=== PATIENT | female | born 1995 | race Caucasian/White ===

== ENCOUNTER → 2019-01-02 | Outpatient (REF) | payer BC | LOC: M LAB LCGH 15:00 | PROVIDERS: ATTEND Family Medicine | DX: O77.0 Labor and delivery complicated by meconium in amniotic fluid (principal) ==

== ENCOUNTER → 2020-10-04 | Outpatient (CLI) | payer OTHER | LOC: M WHC 11:09 | PROVIDERS: ATTEND Obstetrics & Gynecology | DX: Z34.82 Encounter for supervision of other normal pregnancy, second trimester (principal); Z3A.17 17 weeks gestation of pregnancy ==

== ENCOUNTER 2020-10-13 20:32 | Outpatient (CLI) | payer OTHER ==
[~2020-10-13] VITALS: Ht 172.7 cm; Wt 85.5 kg
[2020-10-13 21:15] VITALS: BP 116/70
[2020-10-13] MEDS ORDERED: PRENTAB9 PO (21:20)
[2020-10-13] MEDS ORDERED: CEPH250T PO (21:20)
--- NOTE | 2020-10-13 22:07 | IPNPDOC ---
Text Note Date of Service The patient was seen on 10/13/20. NOTE 25 yo at 19 1/7 weeks gestation by LMP c/w 10 week ultrasound (EDC=03/07/2021) presents with contractions every few minutes for the last several hours. No vaginal bleeding. O: AVSS NAD Abd: NT, gravid, soft FHT: 130 toco: none SVE: cx: L/C/P firm A/P 25 yo at 19 1/7 weeks with possible contractions, not in labor pelvic rest discharge home call for worse pain VS,Fishbone, I+O VS, Fishbone, I+O Vital Signs Date Time Temp Pulse Resp B/P (MAP) Pulse Ox O2 Delivery O2 Flow Rate FiO2 10/13/20 21:15 98.7 73 116/70 (85) SVETLANA BREWER MD October 13, 2020 22:07
== END 2020-10-13 22:13 | disposition home or self-care (01) ==
LOC: M LDO 20:32
PROVIDERS: ATTEND Specialist
DX: O47.02 False labor before 37 completed weeks of gestation, second trimester (principal); Z3A.19 19 weeks gestation of pregnancy

== ENCOUNTER → 2020-11-02 | Outpatient (REF) | payer OTHER ==
[~2020-11-02] MED LIST: CEPH250T PO; PRENTAB9 PO
== END ==
LOC: M SFHCWAGY 15:13
PROVIDERS: ATTEND Advanced Practice Midwife
DX: O34.211 Maternal care for low transverse scar from previous cesarean delivery (principal); Z53.9 Procedure and treatment not carried out, unspecified reason

== ENCOUNTER → 2020-11-28 | Outpatient (CLI) | payer OTHER ==
[~2020-11-28] MED LIST changes: +CEPH500C PO; +IBUP200T46 PO
[2020-11-28 15:55] LABS: HEMATOCRIT 39.4 % (36.0-47.0); MEAN CORPUSCULAR HEMOGLOBIN 31.1 pg (27.0-33.0); MEAN CORPUSCULAR VOLUME 94.3 fl (80.0-96.0); PLATELET COUNT, AUTOMATED 243 10^3/uL (150-450); RED BLOOD COUNT 4.18 10^6/uL (4.00-5.40); WHITE BLOOD COUNT 10.3 10^3/uL (4.0-10.0)
[2020-11-28 19:28] LABS: GC DNA AMPLIFICATION NEGATIVE (NEGATIVE)
== END ==
LOC: M PLALAB 12:45
PROVIDERS: ATTEND Advanced Practice Midwife
DX: O34.211 Maternal care for low transverse scar from previous cesarean delivery (principal)

== ENCOUNTER 2020-12-25 21:06 | Outpatient (CLI) | payer BC, OTHER ==
[~2020-12-25] VITALS: Ht 172.7 cm; Wt 89.6 kg
[~2020-12-25 21:06] MED LIST changes: -CEPH500C PO; -IBUP200T46 PO
[2020-12-25 21:29] VITALS: BP 126/76
[2020-12-25] MEDS ORDERED: HOME MED LIST COMPLETE! XX SCH (22:10)
== END 2020-12-25 23:43 | disposition home or self-care (01) ==
LOC: M LDO 21:06
PROVIDERS: ATTEND Obstetrics & Gynecology
DX: O47.03 False labor before 37 completed weeks of gestation, third trimester (principal); Z3A.29 29 weeks gestation of pregnancy
CPT/HCPCS: 59025; 81001; G0378; G0463

== ENCOUNTER 2021-01-20 18:10 | Outpatient (CLI) | payer BC, OTHER ==
[2021-01-20 18:44] VITALS: BP 112/69
--- NOTE | 2021-01-20 19:09 | IPNPDOC ---
Text Note Date of Service The patient was seen on 01/20/21. NOTE Outpatient 25yo VICTORIANO 03/07/2021. Presents @ 33w3d with complaints of contractions, possible leakage of fluid today that started after vacuuming and sweeping her floors. She has presented here and at [place] with similar complaints over the past few weeks. No apparent distress. Breathing expulsively with reported contractions Cat I tracing Spec exam neg pool, neg nitrazine, neg fern SVE LTC, moderate texture, OOP. Will hydrate and reassess. Nicole Carmona CNM Jan 20, 2021 19:08
[2021-01-20] MEDS ORDERED: LACTATED RINGER'S 1000 ML IV ONE (19:15)
[2021-01-20 19:41] LABS: APPEARANCE, URINE CLOUDY (CLEAR); BACTERIA, URINE AUTO 3+ (NEGATIVE); BILIRUBIN, URINE AUTO NEGATIVE (NEGATIVE); BLOOD, URINE BLOOD NEGATIVE (NEGATIVE); COLOR, URINE YELLOW (YELLOW); GLUCOSE, URINE (UA) AUTO NEGATIVE (NEGATIVE); KETONE, URINE AUTO TRACE mg/dL (NEGATIVE); LEUKOCYTE ESTERASE, URINE AUTO 1+ (NEGATIVE); MUCUS, URINE SMALL (NEGATIVE); NITRITE, URINE AUTO NEGATIVE (NEGATIVE); PROTEIN, URINE AUTO 1+ mg/dL (NEGATIVE); RBC, URINE AUTO 3 /HPF (0-3); SPECIFIC GRAVITY URINE AUTO 1.018 (1.002-1.035); SQUAMOUS EPITHELIAL CELL UR AU 2 /HPF (0-6); UROBILINOGEN, URINE AUTO 0.2 mg/dL (0.0-2.0); WBC, URINE AUTO 13 /HPF (0-3)
[2021-01-20] MEDS ORDERED: CEPH500C PO (20:05)
[2021-01-20] MEDS ORDERED: CEPHALEXIN 500 MG CAP PO ONE (20:05)
[2021-01-20 20:54] VITALS: BP 109/62
--- NOTE | 2021-01-20 21:22 | IPNPDOC ---
Text Note Date of Service The patient was seen on 01/20/21. NOTE Progress Feels better after oral hydration and rest. Cat I tracing, rare UC UA suspicious for UTI. Pt takes keflex 250mg daily prophylaxis. Rx sent for keflex 500mg BID pending culture Discharged home with instructions. Keep appt next week VS,Fishbone, I+O VS, Fishbone, I+O Vital Signs Date Time Temp Pulse Resp B/P (MAP) Pulse Ox O2 Delivery O2 Flow Rate FiO2 01/20/21 20:54 71 109/62 (78) 01/20/21 19:10 98.0 18 Room Air Nicole Carmona CNM Jan 20, 2021 21:22
== END 2021-01-20 21:00 | disposition home or self-care (01) ==
LOC: M LDO 18:10
PROVIDERS: ATTEND Advanced Practice Midwife
DX: O47.03 False labor before 37 completed weeks of gestation, third trimester (principal); Z3A.33 33 weeks gestation of pregnancy; O23.43 Unspecified infection of urinary tract in pregnancy, third trimester
CPT/HCPCS: 59025; 81001; 87086; G0378; G0463

== ENCOUNTER → 2021-02-07 | Outpatient (REF) | payer OTHER ==
[~2021-02-07] MED LIST changes: +CEPH500C PO
== END ==
LOC: M SFHCWAGY 10:31
PROVIDERS: ATTEND Obstetrics & Gynecology
DX: O34.211 Maternal care for low transverse scar from previous cesarean delivery (principal); Z3A.00 Weeks of gestation of pregnancy not specified

== ENCOUNTER 2021-03-12 02:32 | Inpatient (IN) | payer BC, OTHER ==
[~2021-03-12] VITALS: Ht 172.7 cm; Wt 94.0 kg
[2021-03-12] VITALS (40 sets, daily range): BP systolic 98–143; BP diastolic 55–97
--- OUTSIDE RECORDS SUMMARY | 2021-03-12 03:37 | CCD ---
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 confirmed 541789168657576 Problem Supervision of other normal Z34.80 Ac tive confirm [id number] ALLERGIES No Known Allergies ENCOUNTERS from 1993 to 2021-03-07 Encounter Location Date Provider Diagnosis [facility] [address] [place] [address] [place] [address] Feb, Oj Mckeon Previous de livery, antepartum O34.219 IMMUNIZATIONS Vaccine Route Administration Date Status TDAP 0.5mL Boostrix IM Intramuscular Jan 10, 2021 Administere d RHo D Immune Globulin 300mcg/1.5mL RhoGAM IM Intramuscular Dec Administered SOCIAL HISTORY Tobacco Use: Social History Observation Description Date Details (start date - stop date) Never Smoker Sex Assigned At : Social History Observation Description Sex Assigned At Unknown Alcohol Screening: Question Answer Notes Did you have a drink containing alcohol in the past year? No Points 0 Interpretation Negative Tobacco Use: Question Answer Notes Are you a: never smoker REASON FOR REFERRAL No Information VITAL SIGNS Weight 203.4 lbs Feb, Weight-kg 92.26 kg 18 Oct, 2021 Height 68 in Feb, BMI 30.927 kg/m2 Feb, Blood pressure systolic 124 mm Hg Feb, Blood pressure diastolic 84 mm Hg Feb, MEDICATIONS Medication SIG (Take, Route, Frequency, Duration) Notes Start Da te End Date Status 27-1 MG 1 tablet Orally Once a day Active Cephalexin Not-Taking Cephalexin 250 MG 1 capsule Orally every 6 hrs Not-Taking PROCEDURES No Information RESULTS No Results REASON FOR VISIT 1 wk pn MEDICAL (GENERAL) HISTORY Type Description Date Medical History factor V leiden Medical History migraine headache Medical History Atypical gene status-difficulty processi ng meds Medical History Chronic kidney infections Surgical History 2019 Surgical History [place] teeth Hospitalization History /hematoma Hospitalization History Kidney infection Goals Section No Information Health Concerns No Information MEDICAL EQUIPMENT No Information MENTAL STATUS No Information FUNCTIONAL STATUS No Information ASSESSMENTS Encounter Date Diagnosis Assessment Notes Treatment Notes Treatm ent Clinical Notes Feb, Previous delivery, antepartum (ICD-10 - O34.219) PLAN OF TREATMENT Next Appt Details 1 Week Reason: Provider Name:Oj Mckeon, 2021-03-13 1 0:40:00 AM, [address] [facility], , [place], [address], Insurance Providers Payer Name Payer Address Payer Phone Insured Name Patient Relati onship to Insured Coverage Start Date Coverage End Date [facility] COMMUNITY [facility]AN [facility] [place] [facility] [address] [facility] [phone] KAYDEN CUMMINGS self
--- OUTSIDE RECORDS SUMMARY | 2021-03-12 03:38 | CCD ---
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 Active confirmed [id number] Problem Supervision of other normal Z34.80 Ac tive confirm [id number] ALLERGIES No Known Allergies ENCOUNTERS from 1993 to 2021-02-24 Encounter Location Date Provider Diagnosis [facility] [address] [facility] [phone] [place] [address] Jan, Tosha Lorenzana Maternal care due to low transverse uterine scar from previous delivery O34.211 ; Mitochondrial metabolism disorder, 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 and 37 weeks gestation of Z3A.37 IMMUNIZATIONS Vaccine Route Administration Date Status TDAP [...] FOR REFERRAL No Information VITAL SIGNS Weight 202 lbs Jan, Weight-kg 91.63 kg Jan, Height 68 in Jan, BMI 30.71 kg/m2 Jan, Blood pressure systolic 116 mm Hg Jan, Blood pressure diastolic 70 mm Hg Jan, MEDICATIONS Medication SIG (Take, Route, Frequency, Duration) Notes Start Da te End Date Status Cephalexin 250 MG 1 capsule Orally every 6 hrs Active Cephalexin Not-Taking 27-1 MG 1 tablet Orally Once a day Active PROCEDURES No Information RESULTS No Results REASON FOR VISIT 1 wk pn MEDICAL (GENERAL) HISTORY Type Description Date Medical History factor V leiden Medical History migraine headache Medical History Atypical gene status-difficulty processi ng meds Medical History Chronic kidney infections Surgical History 2018 Surgical History [place] teeth Hospitalization History /hematoma Hospitalization History Kidney infection Goals Section No Information Health Concerns No Information MEDICAL EQUIPMENT No Information MENTAL STATUS No Information FUNCTIONAL STATUS No Information ASSESSMENTS Encounter Date Diagnosis Assessment Notes Treatment Notes Treatm ent Clinical Notes Jan, Mitochondrial metabolism disorder, unspecified ( ICD-10 - E88.40) Jan, Maternal care due to low tra nsverse uterine scar from previous delivery (ICD-10 - O34.211) Jan, 37 weeks gestation of (ICD-10 - Z3A.37 ) PLAN OF TREATMENT Next Appt Details 1 Week Reason: Provider Name:Oj Mckeon, 2021-02-27 1 0:40:00 AM, [address] [place] [address] , [place], [address], Provider Name:Oj Mckeon, 2021-03-06 1 0:40:00 AM, [address] [place] [address] , [place], [address], Provider Name:Oj Mckeon, 2021-03-13 1 0:40:00 AM, [address] [place], [place] [id number], [place], [address], Follow Up:1 WeekPrenatal Insurance Providers Payer Name Payer Address Payer Phone Insured Name Patient Relati onship to Insured Coverage Start Date Coverage End Date [facility] COMM[facility]ITY [facility]AN [facility] [address] [facility] [phone] KAYDEN CUMMINGS self
--- OUTSIDE RECORDS SUMMARY | 2021-03-12 03:38 | CCD ---
Author Author [facility] Organization [facility] Address [address] [place] [address] Phone Care Team Providers Care Regulatory Affairs Manager Name Role Phone Yadira CHAVEZ, Behzad Unavailable Unavailable Jose Cruz CHAVEZ, Nellie Unavailable Unavailable Smiley CAHVEZ, Vianey Escobedo PP [phone] Reason for Referral No Reason for Referral Recorded Problems Includes: Active, inactive, and resolved Problems All Visits Onset Date - Time Resolved Date - Time Provider Co ndition Status Maternal Blood Type Rh- 05/31/2020 - 12:00AM Vianey Reis MD Active 05/31/2020 - 12:00AM Vianey Reis MD Active Note: No menses since Nexpla non removal 05/21/20- bled 1 day Metabolic Disorders 10/13/2019 - 12:00AM Aubree lópez [facility] Active Note: 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 CYP-P2C19 Type O blood, Rh negative 06/09/2018 - 12:00AM Unknown - Unknown Vianey Reis MD Resolved Note: was Closed. Maternal Blood Type Rh- 03/20/2018 - 12:00AM Unknown - Unknown Nir Reis MD Resolved Note: was Closed. 03/20/2018 - 12:00AM Unknown - Unknown Vianey han MD Resolved Note: was Closed. Common Migraine Without Aura with Intractable Migraine 6 - 12:00AM Paco Lee MD Active Note: Unchanged Tension-type Headache with Intractable Headache 02/07/2016 - 12: 00AM Paco Lee MD Active Note: Unchanged Irritable Bowel Syndrome 01/29/2013 - 12:00AM Paco Lee MD Active Plan of Treatment Pending Tests Order Diagnosis Results Due Ordering Provi libby Outside Labs - OB LABS OB-Initial Labs 9 weeks gestation of pregnan cy 07/11/20 Vianey Reis MD Care Programs [facility] Future Appointments Date Time Location Provider Obstetrics/ first visit 08/16/2020 10:00AM [facility], [facility] Vianey Reis MD Findings Encounter Date Education and counseling Age and gender specific counceling on preventative health discussed with the patient using USPTF and/or ACP guidelines on health maintenance and screening. Due for pap next year. She would like to have both areas of skin concern removed as well as her nexplanon removed after the new year. Will schedule for them. She will start vitamin ANNUAL PE-followup with Aubree Larkin [facility] 03/10/2020 Discussed treatment plan with the daya ent and her . We discussed her genetic testing at length with >50% of visit spent in counseling and discussion. I would like to refer her for genetic counseling and also to psychiatry. Will continue klonopin for now, but needs a better maintenance option for her anxiety. See back with questions or concerns sick visit with Aubree Larkin [facility] 04/21/2019 Discussed treatment plan with the daya ent. Will refer to Director Of Business Services for testing to see if this could be correlated with headaches. In regards to skin lesions, ABCDE were reviewed today of concerning lesions. If area to left upper arm returns will consider referral for biopsy. Reviewed importance of sunscreen sick visit with Aubree Larkin [facility] 08/06/2017 Engaged in a lengthy conversation with the patient regarding her symptoms. >50% of visit spent in counseling and discussion. Symptoms appear to be consistent with IBS. Recommended to diligently try to keep a food diary to find potential triggers, increase dietary fiber or add psyllium to her routine and utilize probiotic. Limit gluten. Also encouraged her to consider trying topamax for migraine prophylaxsis and keep routine follow up with neurology. See as needed with questions or concerns followup with Aubree Larkin [facility] 11/09/2016 Engaged in a lengthy conversation with the patient regarding her symptoms. >50% of visit spent in counseling and discussion. Symptoms consistent with IBS. Recommended food diary to find potential triggers, increase dietary fiber or add psyllium to her routine and utilize probiotic. Reassurance given workup in the ER. Up to date handout on IBS given today. Will plan to keep next appointment or see sooner if issues arise sick visit with Aubree Larkin [facility] 08/21/2016 Tylenol for discomfort or fever. Push fluids and rest. Saline nasal spray to thin secretions and encourage drainage. Call if persistent or high fever, increased work of breathing, persistent pain, if sxs not improving, or if concerned urgent visit with Deandra Beasley [facility] 07/10/2016 Patient informed of natural history of the disease process and told to call the office or seek medical attention if focal neurologic deficits occur, pain becomes unbearable or significant medication side effects occur. Will treat current migraine with naproxen as above and use sumatriptan for future prophylaxsis. Treatment goals, options and potential side effects reviewed with patient. See back if symptoms unresponsive or with any questions or concerns sick visit with Aubree Larkin [facility] 10/04/2015 Tylenol for discomfort or fever. Push fluids and rest. Advised to call if persistent or high fever, increased work of breathing, persistent pain, if sxs not improving, or if concerned sick visit with Aubree Larkin [facility] 06/21/2014 Ordered high fiber diet as she is ciro sharp and will see back in 12 months unless problems arise followup with Paco Lee MD 01/29/2013 Tylenol for discomfort or fever. Push fluids and rest. Call if persistent or high fever, increased work of breathing, persistent pain, if sxs not improving, or if concerned sick visit with Aung Johns [facility] 01/23/2012 Ordered an oropharynx culture for streptococcus group A beta hemolytic sick visit with Aung Johns [facility] 01/23/2012 Assessments Includes: Assessments for all patient encounters Findings Encounter Date Dysplastic nevus s/p removal, path pending Ambulatory Procedure with Aubree Larkin [facility] 06/07/2020 Dysplastic nevus [Neoplasm of uncertain behavior of sk in] Ambulatory Procedure with Vianey Reis MD 05/31/2020 Signs and symptoms in breast nipple tag removed today [Other signs and symptoms in breast] Ambulatory Procedure with Vianey Reis MD 05/31/19 Visit for: contraceptive management Nexplanon removed today Ambulatory Procedure with Vianey Reis MD 05/31/2020 Acrochordon ANNUAL PE-followup exam/30 with Aubree Larkin [facility] 03/10/2020 Routine adult history and physical (18 - 64 yrs) ANNUA L PE-followup exam/30 with Aubree Larkin [facility] 03/10/2020 Skin neoplasm of uncertain behavior ANNUAL PE-followup exam/30 with Aubree Larkin [facility] 03/10/2020 Disorder of mitochondrial metabolism followup with Vianey Reis MD 11/16/2019 Generalized anxiety disorder followup with Vianey Reis MD 11/16/2019 Metabolic disorders [id number] with expres collin of *6 and *41. Has appointment scheduled with Electric Tool Repairer December 06 [Deficiency of multiple nutrient elements] followup with Vianey Reis MD 11/16/2019 depression continue xanax pr n at this time, follow-up with new psychiatrist and Electric Tool Rep[employer]r. Continue counseling. Counseling provided today [ depression] followup with Vianey Reis MD 11/16/2019 Post-traumatic stress disorder followup with Vianey han MD 11/16/2019 Disorder of mitochondrial metabolism followup with Vianey Reis MD 10/13/2019 Metabolic disorders [id number] with expres collin of *6 and *41. Consider consultation with Pharm D for further assistance with medication management [Deficiency of multiple nutrient elements] followup with Vianey Reis MD 10/13/2019 depression and anxiety, cont inue xanax prn at this time, follow-up with new psychiatrist [ depression] followup with Vianey Reis MD 10/13/2019 Disorder of mitochondrial metabolism sick visit with Aubree Larkin [facility] 04/21/2019 Metabolic disorders CYP- P2D6 with expression of *6 a nd *41 sick visit with Aubree Larkin [facility] 04/21/2019 depression and anxiety sick visit with Aubree contreras [facility] 04/21/2019 Encounter for implantable subdermal contraceptive Ambu latory Procedure with Aubree Larkin [facility] 03/23/2019 Hematoma of obstetrical wound Healing w ell via secondary intention. Reassurance provided today [Hematoma of obstetric wound] Post Visit with Vianey Reis MD 03/10/2019 depression Plan to resume se rtraline once incision is healed, patient hesitant to start it now due to concern regarding possibility of incisional hematoma. Continue therapy with Sanam Li HS [ depression] Post Visit with Vianey Reis MD 03/10/2019 Post-traumatic stress disorder s/p c-se ction with lack of pain control during procedure. Having diffiuclty at this time, unsure if she feels emotionally stable enough to return to work, attending therapy [Post-traumatic stress disorder, acute] Post Visit with Vianey Reis MD 03/10/2019 Anemia complicating puerperium Stable, continue rest, hydration, and iron rich foods. Continue ferrous sulfate TID [Anemia complicating the puerperium] Post Visit with Vianey Reis MD 02/24/2019 Hematoma of obstetrical wound Steri-str ips applied today to try to aid with approximation of edges [Hematoma of obstetric wound] Post Visit with Vianey Reis MD 02/24/2019 depression Continuing to imp rove now that pain has improved. Continue therapy with Sanam Li HS [ depression] Post Visit with Vianey Reis MD 02/24/2019 Anemia complicating puerperium Stable, continue rest, hydration, and iron rich foods. Continue ferrous sulfate TID [Anemia complicating the puerperium] Post Visit with Vianey Reis MD 02/10/2019 Hematoma of obstetrical wound Continues to improve, will discontinue packing. Steri-strips applied today to try to aid with approximation of edges [Hematoma of obstetric wound] Post Visit with Vianey Reis MD 02/10/2019 depression Continuing to imp rove now that pain has improved. Continue therapy with Sanam Matthew and Klonopin BID. Due to the active bleeding noted on exam today, will hold off on starting sertraline until incision has completely healed [ depression] Post Visit with Vianey Reis MD 02/10/2019 Anemia complicating puerperium Improvin g, continue rest, hydration, and iron rich foods. Continue ferrous sulfate TID [Anemia complicating the puerperium] Post Visit with Vianey Reis MD 01/26/2019 Hematoma of obstetrical wound Continues to significantly improve. Continue gradually decreasing packing amount and allow healing by secondary intention. Okay to surround incision with vaseline to prevent bandaging from sticking [Hematoma of obstetric wound] Post Visit with Vianey Reis MD 01/26/2019 depression Continuing to imp rove now that pain has improved. Continue therapy with Sanam Matthew and Klonopin BID [ depression] Post Visit with Vianey Reis MD 01/26/2019 Puerperal endometritis Resolved [Endometritis followi ng delivery] Post Visit with Vianey Reis MD 01/26/2019 Anemia complicating puerperium Advised rest, hydration, and iron rich foods. Continue ferrous sulfate TID. Repeat CBC in 1 week [Anemia complicating the puerperium] Post Visit with Vianey Reis MD 01/16/2019 Hematoma of obstetrical wound Significa nt improvement. Continue packing BID and then daily as drainage continues to decrease [Hematoma of obstetric wound] Post Visit with Vianey Reis MD 01/16/2019 depression Improving now blanca t pain has improved. Therapy scheduled with Sanam Matthew. Continue Klonopin BID [ depression] Post Visit with Vianey Reis MD 01/16/2019 Puerperal endometritis Significant impr ovement in symptoms s/p IV antibiotics. Continue course of clindamycin until completed Post Visit with Vianey Reis MD 01/16/2019 Puerperal infection Vaginal culture obt ained today, low index of suspicion for endometritis at this time, may represent a vaginitis. Wound infection versus hematoma. Patient is and her vitals are stable. Will try cephalexin 500mg PO QID x 7 days. Patient advised that if she does not exhibit any improvement in the next 24 hours, will need to start clindamycin and gentamicin IM for broader coverage. May also need to consider opening the wound and irrigating/packing. Encourage continued use of binder and warm compresses. Advised removal of steri-strips in the shower. Advised to go to ED if symptoms worsen [Other specified puerperal infections] Post Visit with Vianey Reis MD 01/12/2019 Acute stress disorder No pain control d uring or - patient is a supermetabolizer of opioids. Pain causes her to have flashbacks to the traumatic delivery [Acute stress reaction] Post Visit with Vianey Reis MD 01/09/2019 Anemia complicating puerperium [Anemia complicating th e puerperium] Post Visit with Vianey Reis MD 01/09/2019 depression Continue sertrali ne 50mg PO daily, increase frequency of Klonopin from daily to BID. Refer to psychology for counseling. Good family support. >50% of encounter spent counseling today [ depression] Post Visit with Vianey Reis MD 01/09/2019 Puerperal complications Incision appear s benign and reassuring on exam today. Okay to increase frequency of motrin to q6h due to significant pain (which contributes to anxiety and acute stress disorder symptoms). Will obtain CBC and CMP [Other complications of the puerperium, not elsewhere classified] Post Visit with Vianey Reis MD 01/09/2019 Migraine headache Migraine severity inh ibiting patient's ability to function today. No abortive therapies available in office today. Will send patient to ED for abortive therapy [Migraine with aura, intractable, without status migrainosus] sick visit with Vianey Reis MD 12/31/2017 Actinic keratosis x 1 , left upper arm sick visit with Julieth Larkin [facility] 08/06/2017 Allergic rhinitis sick visit with Aubree Larkin [facility] 07/19 Common migraine (without aura) with intractable migrai ne sick visit with Aubree Larkin [facility] 08/06/2017 Acute upper respiratory infection Suspe ct is viral, patient may alternate ibuprofen with Tylenol for her body aches, and sore throat. Gargle with saline gargles as needed, start prednisone as recommended for facial pressure and pain. Increase fluids to 2 or more quarts daily, space activities with rest. Patient will call if she is not improving sick visit with Brittaney White ANP-BC 04/16/2017 Assessment of cough urgent visit with Deandra Beasley [facility] 02/04 Common migraine (without aura) followup with Aubree Larkin [facility] 11/09/2016 Irritable bowel syndrome followup with Aubree Larkin [facility] 0 11/09/2016 Irritable bowel syndrome sick visit with Aubree Larkin [facility] 08/21/2016 Malaise urgent visit with Deandra Beasley [facility] 07/10 Pharyngitis urgent visit with Deandra Beasley [facility] 07/10 Presyncope syndrome urgent visit with Deandra Beasley [facility] 07/10 Classic migraine with aura with intractable migraine w ithout status migrainosus followup with Paco Lee MD 04/19/2016 Common migraine (without aura) with intr actable migraine with status migrainosus followup with Paco Lee MD 02/27/2016 Common migraine (without aura) with intractable migrai ne sick visit with Paco Lee MD 02/07/2016 Tension-type headache with intractable headache sick v isit with Paco Lee MD 02/07/2016 Common migraine (without aura) sick visit with Aubree lópez [facility] 10/04/2015 Influenza sick visit with Aubree Larkin [facility] 06/2014 Irritable bowel syndrome followup with Paco ramires MD 01/29/2013 Working diagnosis of irritable bowel syndrome sick vis it with Aung Johns [facility] 01/12/2013 Possible irritable bowel syndrome sick visit with Paco Lee MD 12/18/2012 Possible lactase deficiency syndrome sick visit with Paco Lee MD 12/18/2012 Migraine headache followup with Aung Johns [facility] 05/22 Migraine headache followup with Aung Johns [facility] 04/17 Working diagnosis of basilar migraine headache sick vi sit with Aung Johns [facility] 03/14/2012 Acute viral pharyngitis sick visit with Aung Johns [facility] 01/23/2012 Acne , recently started on some otc products, if doesn 't help refer to Yessy Michaels new patient with Rose Mullins MD 09/22/2009 Migraine headache , will try rescue med for acute migraine syndrome. Follow up at [facility] this spring new patient with Rose Mulilns MD 09/22/2009 Probable cluster headache as well. Ca n try aspirin to relieve these. Also, minimize screen time, get updated eye exam new patient with Rose Mullins MD 09/22/2009 Instructions Instructions not supported for this document typeNo Instructions Recorded Medical Equipment - Implanted Devices Includes: Current and historical DevicesNo Medical Equipment Recorded Medications Includes: Current and historical Medications Current Medications (continue as prescribed) Cephalexin 500 MG Oral Capsule 08/15/2020 - 08/20/2020 Provi libby: Vianey Reis MD Diagnosis: 1 PO QID Nitrofurantoin Monohyd Macro 100 MG Oral Capsule 08/09/2020 - 08/16/2020 Provider: Vianey Reis MD Diagnosis: 1 PO BID ALPRAZolam 0.5 MG Oral Tablet 10/13/2019 Provider: Vianey Reis MD Diagnosis: as directed 1/2 tab or 1 tab PO BID prn tremor/anxiety MDD: 2 Reference #: [id number] Past Medications on file ALPRAZolam 0.5 MG Oral Tablet 10/13/2019 - 10/13/2019 Provid er: Vianey Reis MD Diagnosis: as directed 1/2 tab or 1 tab PO BID prn tremor/anxiety MDD: 2 Reference #: [id number] ALPRAZolam Powder 10/10/2019 - 10/13/2019 Provider: Yadiel Costello Diagnosis: ALPRAZolam 0.5 MG Oral Tablet 10/10/2019 - 10/13/2019 Provid er: Yadiel Costello Diagnosis: Nefazodone HCl 100 MG Oral Tablet 09/21/2019 - 10/13/2019 Pr ovider: Diagnosis: Cephalexin 500MG Oral Capsule 05/15/2019 - 03/10/2020 Provid er: Vianey Reis MD Diagnosis: 1 PO BID LORazepam 1MG Oral Tablet 05/15/2019 - 10/13/2019 Provider: Vianey Reis MD Diagnosis: 1 PO QD prn anxiety MDD: 1 Reference #: [id number] LORazepam 1MG Oral Tablet 04/17/2019 - 10/13/2019 Provider: Francisco Javier Basurto MD Diagnosis: clonazePAM 0.5MG Oral Tablet 04/13/2019 - 10/13/2019 Provide r: Vianey Reis MD Diagnosis: 1 PO BID MDD: 2 Reference #: [id number] Nexplanon 68MG Subcutaneous Implant 03/06/2019 - 05/31/2020 Provider: Vianey Reis MD Diagnosis: as directed one subcutaneous implant Reference #: [id number] Clindamycin HCl 300MG Oral Capsule 01/14/2019 - 02/06/2019 P rovider: Vianey Reis MD Diagnosis: Cephalexin 500MG Oral Capsule 01/12/2019 - 01/16/2019 Provid er: Vianey Reis MD Diagnosis: 1 PO QID clonazePAM 0.5MG Oral Tablet 01/09/2019 - 04/13/2019 Provide r: Vianey Reis MD Diagnosis: 1 PO BID MDD: 2 Reference #: [id number] Sertraline HCl 50MG Oral Tablet 01/05/2019 - 01/16/2019 Prov ider: Vianey Reis MD Diagnosis: clonazePAM 0.5MG Oral Tablet 01/05/2019 - 01/09/2019 Provide r: Vianey Reis MD Diagnosis: oxyCODONE HCl 5MG Oral Capsule 09/02/2018 - 09/07/2018 Provi libby: Vianey Reis MD Diagnosis: 1 every 4 - 6 hours as needed prn headache MDD: 2 Reference #: [id number] Cephalexin 250MG Oral Capsule 07/08/2018 - 01/04/2019 Provid er: Aburee Larkin RPA Diagnosis: 1 PO QD Vxhpkhpwia-YHCG-Tkugheid 50-325-40MG Oral Capsule 06/18/2018 - 03/10/2020 Provider: Vianey Reis MD Diagnosis: 1 PO QD prn headache MDD: 1, do not take more than 4 in one month PNV-DHA 27-0.6-0.4-300MG Oral Capsule 05/21/2018 - 0 Provider: Vianey Reis MD Diagnosis: 1 PO QD PredniSONE 20 MG Tablet 02/06/2017 - 02/11/2017 Provider: Deandra Beasley RPA Diagnosis: 3 tabs po daily x 5 days Benzonatate 100 MG Capsule 01/26/2017 - 04/18/2017 Provider: Fabiana eDy NP Diagnosis: Azithromycin Powder 01/26/2017 - 04/18/2017 Provider: Fabiana Dey NP Diagnosis: Cefdinir 125 MG/5ML Suspension Reconstituted 01/22/2017 - Provider: Diagnosis: Tamiflu 75 MG Capsule 07/10/2016 - 04/18/2017 Provider: Deandra Beasley RPA Diagnosis: Other malaise as directed 1 tab po bid x 5days Kelnor 1/35 1-35 MG-MCG Tablet 06/02/2016 - 06/18/2018 Provi libby: Ady Gibbons Diagnosis: Zonisamide 50 MG Capsule 04/25/2016 - 01/16/2019 Provider: Nellie Billingsley MD Diagnosis: relpax 40mg Tablet 02/27/2016 - 07/10/2016 Provider: Paco Lee MD Diagnosis: 1 PO QD prn Ondansetron HCl 4 MG Tablet 02/07/2016 - 01/16/2019 Provider : Paco Lee MD Diagnosis: 1 PO QID prn Nortriptyline HCl 10 MG Capsule, conventional 02/07/2016 - 0 07/10/2016 Provider: Paco Lee MD Diagnosis: Migraine with aura, not intractable, w/o status migrainosus 1 PO QPM Naproxen 500 MG Tablet 02/07/2016 - 03/02/2016 Provider: Paco Lee MD Diagnosis: one BID prn Naproxen 500 MG Tablet 10/04/2015 - 02/07/2016 Provider: Aubree Larkin RPA Diagnosis: 1 PO BID SUMAtriptan Succinate 100 MG Tablet 10/04/2015 - 02/07/2016 Provider: Aubree Larkin RPA Diagnosis: as directed Take 1 tab PO x1 at first si gn of a migraine. May repeat x1 after 2 hours if migraine recurs. Tamiflu 75 MG OR CAPS 06/21/2014 - 02/07/2016 Provider: Aubree Larkin RPA Diagnosis: Influenza-NOS w/wo o ther respiratory manifestations Zovia 1/35E (28) 1-35 MG-MCG OR TABS 05/17/2014 - 07/10/2016 Provider: Diagnosis: Nortriptyline HCl 10 MG OR CAPS 04/09/2013 - 02/07/2016 Prov ider: Aung Johns RPA Diagnosis: MIGRAINE HEADACHE WI TH AURA Linzess 145 MCG OR CAPS 01/29/2013 - 02/07/2016 Provider: Paco Lee MD Diagnosis: Irritable Bowel Synd maraym Nortriptyline HCl 10 MG OR CAPS 05/22/2012 - 05/22/2012 Prov ider: Aung Johns RPA Diagnosis: MIGRAINE HEADACHE WI TH AURA Nortriptyline HCl 10 MG OR CAPS 04/17/2012 - 05/22/2012 Prov ider: Aung Johns RPA Diagnosis: MIGRAINE HEADACHE WI TH AURA Verapamil HCl 120 MG OR TABS 03/14/2012 - 04/17/2012 Provide r: Aung Johns RPA Diagnosis: MIGRAINE HEADACHE WI TH AURA predniSONE 20 MG OR TABS 01/23/2012 - 04/17/2012 Provider: Aung Johns RPA Diagnosis: Pharyngitis Maxalt-MIGRATORY WORKER 10 MG OR TBDP 09/22/2009 - 02/07/2016 Provider: Rose Mullins MD Diagnosis: 1 tab at onset of headache Medications Administered Includes: Administered Medications in patient's chartNo Administered Medications Recorded Vital Signs Includes: Vital Signs from 08/16/2019 through 08/15/2020 Vital Name 08/09/2020 08:20A 06/07/2020 11:37A 05/31/2020 10:13A 03/10/2020 03:00P 11/16/2019 11:38A Height (in) 68 68 68 68 Blood Pressure Sitting (mmHg) 128/64 136/74 108/72 120/80 Pulse Rate-Sitting (bpm) 72 100 86 78 Respiration Rate (breaths/min) 22 18 20 20 Temp-Oral (F) 98.4 Weight (lb) 191 188 189 Body Mass Index (kg/m2) 29.0 28.6 Body Surface Area (m2) 2.00 1.99 Oxygen Saturation (%) 98 Vital Name 10/13/2019 01:30P Blood Pressure Sitting (mmHg) 96/60 Pulse Rate-Sitting (bpm) 76 Respiration Rate (breaths/min) 18 Results Includes: Results from 08/16/2019 through 08/15/2020 Urine culture [facility] Ordered by Vianey Reis MD on 08/11/2020 Collected: 08/11/2020 Reported: 08/12/2020 13:00 Urine culture result See Note None Note: 25,000 CFU/MLStaph spp. coag negNo rmal Commensal FloraProbable contaminants no senst done Reviewed by Vianey Reis MD on 08/15; All test results are final unless otherwise noted. ADD ON MICROSCOPIC [facility] Ordered by Vianey Reis MD on 08/11/2020 Collected: 08/11/2020 Reported: 08/11/2020 12:22 ADD ON MICROSCOPIC See Note (0-5) None Note: NOTES OTHER/NOT INTERPRETED Bacteria UrnS Ql Micro MODERATE AMOUNT Bacteria UrnS Ql Micro MODERATE AMOUNT Bacteria UrnS Ql Micro L Bacteria UrnS Ql Micro Bacteria UrnS Ql Micro Bacteria UrnS Ql Micro Bacteria UrnS Ql Micro [id number] Bacteria UrnS Ql Micro Bacteria UrnS Ql Micro MODERATE AMOUNT Cells UrnS Micro FEW Cells UrnS Micro FEW Cells UrnS Micro FEW Cells UrnS Micro L Cells UrnS Micro Cells UrnS Micro Cells UrnS Micro Cells UrnS Micro Cells UrnS Micro WBC # Ur Manual 1-2 @08/11/20 1202: UA W/ MICRO added. RFLXG = UMIC.Method of Collection:: Clean CatchResponsible Observer: WBC WBC 300.5000 (A) Reviewed by Vianey Reis MD on 08/15; All test results are final unless otherwise noted. Reported Physicians [facility] Ordered by Vianey Reis MD on 08/11/2020 Collected: 08/11/2020 Reported: 08/11/2020 12:23 Reported Physicians See Note None Note: Reported Physicians:Ordering: Vianey CaceresAttending: Vianey Reis Reviewed by Vianey Reis MD on 08/15; All test results are final unless otherwise noted. URINALYSIS [facility] Ordered by Vianey Reis MD on 08/11/2020 Collected: 08/11/2020 Reported: 08/11/2020 12:22 Urobilinogen Ur Ql See Note (0.2-1 EU/dl) None Note: 0.2 EU/dl0.2 EU/[id number] E U/dlResponsible Observer: UROBILINOGEN UROBILINOGEN 300.4500 (C) RBC # Ur Strip NEGATIVE (NEGATIVE) None Note: Responsible Observer: BLOOD BLOOD 300.4650 (C) Prot Ur Ql Strip See Note (NEGATIVE) None Note: [id number] EResponsible Observer: PROTEIN PROTEIN 300.3750 (C) Ketones Ur Ql Strip See Note (NEGATIVE) None Note: [id number] EResponsible Observer: KETONE KETONE 300.3900 (C) Bilirub Ur Ql Strip.auto See Note (NEGATIVE) None Note: [id number] EResponsible Observer: BILIRUBIN BILIRUBIN 300.4550 (C) Glucose Ur Strip.auto-mCnc NEGATIVE (NEGATIVE) None Note: Responsible Observer: GLUCOSE GLUC OSE 300.3850 (C) Appearance Ur See Note (CLEAR) A (Abnormal) Note: CLOUDYCLOUDYLCLOUDYResponsible Obs erver: APPEARANCE APPEARANCE 300.3400 (A) Color Ur See Note None Note: YELLOWYELLOWLYELLOWResponsible Obs erver: COLOR COLOR 300.3300 (A) Leukocyte esterase Ur Ql Strip See Note (NEGATIVE) None Note: [id number]@DO MICR O!!!!Responsible Observer: LEUKOCYTES LEUKOCYTES 300.3575 (C) Nitrite Ur Ql Strip See Note (NEGATIVE) None Note: [id number] EResponsible Observer: NITRITE NITRITE 300.3650 (B) pH Ur Strip 6.0 (5-8) None Note: Responsible Observer: PH PH 300.3 450 (C) Sp Gr Ur Refractometry 1.013 (1.005-1.030) None Note: Responsible Observer: SP GRAVITY U RINE SPECIFIC GRAVITY-MAN 300.3475 (C) URINE MICROSCOPIC ADDED Microscopic Added None Note: Responsible Observer: UA URINE ARMANDO ROSCOPIC PENDING 300.4660 (D) NOTES See Note None Note: @08/11/20 1202: UA W/ MICRO added. RFLXG = UMIC.Method of Collection:: Clean Catch Reviewed by Vianey Reis MD on 08/15; All test results are final unless otherwise noted. Reported Physicians [facility] Ordered by Vianey Reis MD on 08/11/2020 Collected: 08/11/2020 Reported: 08/12/2020 13:00 Reported Physicians See Note None Note: Reported Physicians:Ordering: Vianey CaceresAttending: Vianey Reis Reviewed by Vianey Reis MD on 08/15; All test results are final unless otherwise noted. MANUAL DIFF, PNP [facility] Ordered by Vianey Reis MD on 08/11/2020 Collected: 08/11/2020 Reported: 08/11/2020 12:09 MANUAL DIFF, PNP See Note None Note: NOTES OTHER/NOT INTERPRETED Cells counted 100 Eosinophil # Bld Manual 1 %Lymphocytes # Bld Manual 14 %Monocytes # Bld Manual 2 %Morphology Bld-Imp APPEARS NORMAL Neutrophils # Bld Manual 83 %Platelet # Bld Est APPEARS NORMAL @08/11/20 1132: CBC-MAN DIFF,PN added. RFLXG = DIFFPNP.Responsible Observer: TOTAL CELLS TOTAL CELLS COUNTED 100.2105 (A) Reviewed by Vianey Reis MD on 08/15; All test results are final unless otherwise noted. Varicella-Zoster IgG Antibody [facility] Ordered by Vianey Reis MD on 08/11/2020 Collected: 08/11/2020 Reported: 08/12/2020 15:21 VZV IgG Ser IA-aCnc 580.00 None Note: Index Interpr etation --------- <135.00 Negative - Antibody not detected 135.00 - 164.99 Equivocal > or = 165.00 Positive - Antibody detected A positive result indicates that the patient has antibody to VZV but does not differentiate between an active or past infection. The clinical diagnosis must be interpreted in conjunction with the clinical signs and symptoms of the patient. This assay reliably measures immunity due to previous infection but may not be sensitive enough to detect antibodies induced by vaccination. Thus, a negative result in a vaccinated individual does not necessarily indicate susceptibility to VZV infection. A more sensitive test for vaccination-induced immunity is Varicella Zoster Virus Antibody Immunity Screen, ACIF.THIS TEST WAS PERFORMED AT:[facility] [id number] ME RATI,MDResponsible Observer: VARICELLA IGG Varicella-Zoster IgG Antibody [id number] 913.7607 (QUEST) NOTES See Note None Note: Patient Street Address: [address] [place] [address] [facility] State: [place] Zip Code: [address] Phone Number: [phone] Reviewed by Vianey Reis MD on 08/15; All test results are final unless otherwise noted. Reported Physicians [facility] Ordered by Vianey Reis MD on 08/11/2020 Collected: 08/11/2020 Reported: 08/12/2020 15:21 Reported Physicians See Note None Note: Reported Physicians:Ordering: Vianey CaceresAttending: Vianey Reis Reviewed by Vianey Reis MD on 08/15; All test results are final unless otherwise noted. CBC [facility] Ordered by Vianey Reis MD on 08/11/2020 Collected: 08/11/2020 Reported: 08/11/2020 12:09 MCV BldCo Auto 90 FemtoLiter_[SI_Volume_Units] (80-96) N (Normal) Note: Responsible Observer: MCV MCV 100 .0600 (B) RDW RBC Auto 12 percent (11-15) N (Normal) Note: Responsible Observer: RDW RDW 100 .0900 (B) Manual diff Bld Manual Diff Added None Note: Responsible Observer: CBC Manual D ifferential Added 100.1996 (A) PMV Bld 9.5 FemtoLiter_[SI_Volume_Units] (9.1-13.1) N (Normal) Note: Responsible Observer: MPV MPV 100 .1100 (B) Imm Granulocytes Bld Ql Auto See Note (0-2) N (Normal) Note: [id number] Ob sql server dba developer: IG% IG% 100.1375 (B) Hct VFr Bld Auto 41.7 percent (37-47) N (Normal) Note: Responsible Observer: HEMATOCRIT H EMATOCRIT 100.0500 (B) MCHC BldCo-mCnc 34 GramsPerDeciLiter_[Mass_Concentration_Units] (33-37) N (Normal) Note: Responsible Observer: MCHC MCHC 1 00.0800 (B) Imm Granulocytes # Bld Auto 0.1 Unit (0-0.1) None Note: Responsible Observer: IG# IG# 100 .1400 (B) Monocytes/leuk NFr Bld Auto 3.8 percent (4-12) L (Low) Note: Responsible Observer: MONO % MONO % 100.1225 (B) Hgb Bld-sCnc 14.0 GramsPerDeciLiter_[Mass_Concentration_Units] (10.7-15.4) N (Normal) Note: Responsible Observer: HGB HEMOGLOB IN 100.0400 (B) WBC # Bld Auto 11.7 ThousandsPerMicroLiter_[Number_Concentration_Units] (4.45-10 .71) H (High) Note: Responsible Observer: WBC WHITE BL OOD COUNT 100.0100 (E) Basophils # Bld Auto 0.0 Unit (0.0-0.2) N (Normal) Note: Responsible Observer: BASO # BASO# 100.1350 (B) Basophils/leuk NFr Bld Auto 0.3 percent (0.4-1.3) L (Low) Note: Responsible Observer: BASO % BASO % 100.1325 (B) Eosinophil # Bld Auto 0.2 Unit (0.0-0.5) N (Normal) Note: Responsible Observer: EOS # EOS# 100.1300 (D) Eosinophil/leuk NFr Bld Auto 1.3 percent (0-7) N (Normal) Note: Responsible Observer: EOS % EOS % 100.1275 (B) Lymphocytes # Bld Auto 1.8 Unit (0.6-4.6) N (Normal) Note: Responsible Observer: LYMPH # LYMP H# 100.1200 (B) Lymphocytes/leuk NFr Bld Auto 15.3 percent (14-46) N (Normal) Note: Responsible Observer: LYMPH % LYMP H % 100.1175 (B) Monocytes # Bld Auto 0.5 Unit (0.2-1.2) N (Normal) Note: Responsible Observer: MONO # MONO# 100.1250 (C) Neutrophils # Bld Auto 9.2 Unit (1.7-7.6) H (High) Note: Responsible Observer: NEUT# NEUT# 100.1150 (B) Neutrophils/leuk NFr Bld Auto 78.8 percent (41-77) H (High) Note: Responsible Observer: NEUT% NEUT% 100.1125 (B) Platelet # Bld Auto 276 ThousandsPerMicroLiter_[Number_Concentration_Units] (130-472 ) N (Normal) Note: Responsible Observer: PLATELET COU NT PLATELET COUNT 100.1000 (D) MCH RBC Qn Auto 30 PicoGram_[SI_Mass_Units] (27-31) N (Normal) Note: Responsible Observer: MCH MCH 100 .0700 (B) RBC # Bld Auto 4.64 MillionsPerMicroLiter_[Number_Concentration_Units] (4.20-5.4 0) N (Normal) Note: Responsible Observer: RBC Red Bloo d Count 100.0300 (B) NUCLEATED RED BLOOD CELL# 0 Unit None Note: Responsible Observer: NRBC# NUCLEA RAMY RBC 100.1362 (A) NUCLEATED RED BLOOD CELL 0 percent None Note: Responsible Observer: NRBC% NRBC% 100.1360 (B) NOTES See Note None Note: @08/11/20 1132: CBC-MAN DIFF,PN ad ded. RFLXG = DIFFPNP. Reviewed by Vianey Reis MD on 08/15; All test results are final unless otherwise noted. TSH [facility] Ordered by Vianey Reis MD on 08/11/2020 Collected: 08/11/2020 Reported: 08/11/2020 12:16 TSH SerPl DL<=0.005 mIU/L-aCnc 1.08 MicroInternationalUnitsPerMilliLiter_[Arbitrary_Con (0.35-5. 50) N (Normal) Note: Responsible Observer: TSH TSH 600 .7055 (D) Reviewed by Vianey Reis MD on 08/15; All test results are final unless otherwise noted. Lead (Venous) Wh.Bld [facility] Ordered by Vianey Reis MD on 08/11/2020 Collected: 08/11/2020 Reported: 08/12/2020 15:21 Lead Bld-sCnc <1 (<5) None Note: See Note 1Note 1This test was imelda mcgowan and its analytical performancecharacteristics have been determined by [employer]. It has not been cleared or approved by theA. This assay has been validated pursuant to the CLIAregulations and is used for clinical purposes.THIS TEST WAS PERFORMED AT:[facility] [id number] MCKAYonsible Observer: Lead, WB Lead, Whole Blood [id number] 911.2190 (QUEST) NOTES See Note None Note: Patient Street Address: [address] [place] [address] City: [facility] State: [facility] Zip Code: [address] Phone Number: [phone] Reviewed by Vianey Reis MD on 08/15; All test results are final unless otherwise noted. Reported Physicians [facility] Ordered by Vianey Reis MD on 08/11/2020 Collected: 08/11/2020 Reported: 08/14/2020 11:23 Reported Physicians See Note None Note: Reported Physicians:Ordering: Vianey CaceresAttending: Vianey Reis Reviewed by Vianey Reis MD on 08/15; All test results are final unless otherwise noted. HCV RFX ALEJANDRO [facility] Ordered by Vianey Reis MD on 08/11/2020 Collected: 08/11/2020 Reported: 08/12/2020 15:21 HCV RNA SerPl ALEJANDRO+probe-aCnc See Note None Note: TNPNo Reportable ResultLTNPNo Repo rtable ResultLLEP.LIVENTNPResponsible Observer: HCV RNA, QN PCR HCV RNA, QUANT RT-PCR [id number] 914.8340 ([facility]) HCV Ab Ser Ql See Note (NON-REACTIVE) None Note: [id number] 5NON-REACTIVEResponsible Observer: HEP C ANTIBODY Hepatitis C Antibody [id number] 914.8305 ([facility]) HCV RNA Qualitative (ALEJANDRO) 0.01 (<1.00) None Note: HCV antibody was non-reactive. The re is no laboratoryevidence of HCV infection.In most cases, no further action is required. However,if recent HCV exposure is suspected, a test for HCV RNA(test code 67696) is suggested.For additional information please refer [email or web address].IBN Media/faq/HBO93l7(This link is being provided for informational/educational purposes only.)THIS TEST WAS PERFORMED AT:[facility] [address]KADANAY RUVALCABAesponsible Observer: SIG TO C/O SIGNAL TO CUTOFF [id number] 914.8335 (QUEST) NOTES See Note None Note: Patient Street Address: [address] [place], [place] [address] City: [facility] State: [place]Patient Zip Code: [address] Phone Number: [phone] Reviewed by Vianey Reis MD on 08/15; All test results are final unless otherwise noted. Reported Physicians [facility] Ordered by Vianey Reis MD on 08/11/2020 Collected: 08/11/2020 Reported: 08/12/2020 15:21 Reported Physicians See Note None Note: Reported Physicians:Ordering: Vianey CaceresAttending: Vianey Reis Reviewed by Vianey Reis MD on 08/15; All test results are final unless otherwise noted. Type and Screen [facility] Ordered by Vianey Reis MD on 08/11/2020 Collected: 08/11/2020 Reported: 08/11/2020 13:01 Blood bank studies Yes None Note: Responsible Observer: Prev. Histor y? Previous History? 100.0800 (A) Antibody Screen (PN) NEGATIVE None Note: Responsible Observer: Antibody Scr een Antibody Screen (PN) 200.0002 (C) Blood Type See Note None Note: EUSEBIO NegativeLResponsible Observer: Blood Type Blood Type 110.0950 (C) NOTES See Note None Note: :: YTransfused within 90 d ays?: NPre Op? (IF Yes, give date): N Reviewed by Vianey Reis MD on 08/15; All test results are final unless otherwise noted. Reported Physicians [facility] Ordered by Vianey Reis MD on 08/11/2020 Collected: 08/11/2020 Reported: 08/11/2020 13:01 Reported Physicians See Note None Note: Reported Physicians:Ordering: Vianey CaceresAttending: Vianey Reis Reviewed by iVaney Reis MD on 08/15; All test results are final unless otherwise noted. Urinalysis w/out microscopy Office Lab Ordered by Vianey Reis MD on 08/09/2020 [address] [place], [address] Specimen Source: Urine Collected: 08/09/2020 Reporte d: 08/09/2020 08:23 tel: bilirubin normal (neg) N (Normal) blood trace non hemo (neg) A (Abnormal) glucose normal (neg) N (Normal) ketone normal (neg) N (Normal) leukocytes trace (neg) A (Abnormal) nitrites normal (neg) N (Normal) pH 6 (5.0-8.5) N (Normal) protein trace (neg-trace) A (Abnormal) specific gravity 1.020 (1.005-1.025) N (Normal) urobilinogen .2 (.2-1) N (Normal) Reviewed by Vianey Reis MD on 08/09; All test results are final unless otherwise noted. Urine culture [facility] Ordered by Vianey Reis MD on 08/09/2020 Collected: 08/09/2020 Reported: 08/11/2020 06:55 Bacteria Ur Cult See Note None Note: ESCCOLESCHERICHIA [id number] SCHERICHIA COLI [place] count Greater than 100,000 None NOTES See Note None Note: @08/11/20 0656: Urine ID Charge ad ded. RFLXG = CHGURID. Reviewed by Vianey Reis MD on 08/15; All test results are final unless otherwise noted. Gram Negative Panel 4 [facility] Ordered by Vianey Reis MD on 08/09/2020 Collected: 08/09/2020 Reported: 08/11/2020 06:55 Gram Negative Panel 4 See Note S (Susceptible) Note: SUSCEPTIBLE ---Amoxicillin+Clavulanate [Susceptibility] by Minimum inhibitory concentratio <8/4 Ampicillin+Sulbactam [Susceptibility] by Minimum inhibitory concentration ( <8/4 Cefepime [Susceptibility] by Minimum inhibitory concentration (ARMANDO) <8 Cefotaxime [Susceptibility] by Minimum inhibitory concentration (ARMANDO) <2 Ciprofloxacin [Susceptibility] by Minimum inhibitory concentration (ARMANDO) <1 Ertapenem [Susceptibility] by Minimum inhibitory concentration (ARMANDO) <0.5 Gentamicin [Susceptibility] by Minimum inhibitory concentration (ARMANDO) <2 Imipenem [Susceptibility] by Minimum inhibitory concentration (ARMANDO) <1 Nitrofurantoin [Susceptibility] by Minimum inhibitory concentration (ARMANDO) <32 Piperacillin+Tazobactam [Susceptibility] by Minimum inhibitory concentrati <16 TRIMETHOPRIM/SULFAMETHOXAZOLE <2/38 Tetracycline [Susceptibility] by Minimum inhibitory concentration (ARMANDO) <4 Tobramycin [Susceptibility] by Minimum inhibitory concentration (ARMANDO) <4 cefTRIAXone [Susceptibility] by Minimum inhibitory concentration (ARMANDO) <1 levoFLOXacin [Susceptibility] by Minimum inhibitory concentration (ARMANDO) <2 RESISTANT Ampicillin [Susceptibility] by Minimum inhibitory concentration (ARMANDO) >16 Reviewed by Vianey Reis MD on 08/15; All test results are final unless otherwise noted. Reported Physicians [facility] Ordered by Vianey Reis MD on 08/09/2020 Collected: 08/09/2020 Reported: 08/11/2020 06:56 Reported Physicians See Note None Note: Reported Physicians:Ordering: Vianey CaceresAttending: Vianey Reis Reviewed by Vianey Reis MD on 08/15; All test results are final unless otherwise noted. BHCG, QUANTITATIVE [facility] Ordered by Vianey Reis MD on 07/05/2020 Collected: 07/05/2020 Reported: 07/05/2020 12:54 B-HCG SerPl-aCnc 2874 MilliInternationalUnitsPerMilliLiter_[Arbitrary_Con (0-10) H (High) Note: @Instrument will autodiluteAPPROXI MATE GESTATION AGE APRROXIMATE HCG RANGE 0-1 WEEK 0 - 50 1-2 WEEKS 40 - 300 2-3 WEEKS 100 - 1,000 3-4 WEEKS 500 - 6,000 1-2 MONTHS 5,000 - 200,000 2-3 MONTHS 10,000 - 100,000 2ND TRIMESTER 3,000 - 50,000 3RD TRIMESTER 1,000 - 50,000Responsible Observer: BHCG,QUANT BHCG, QUANTITATIVE 600.3713 (G) Reviewed by Vianey Reis MD on 07/05; All test results are final unless otherwise noted. Reported Physicians [facility] Ordered by Vianey Reis MD on 07/05/2020 Collected: 07/05/2020 Reported: 07/05/2020 12:55 Reported Physicians See Note None Note: Reported Physicians:Ordering: Vianey CaceresAttending: Miller Larkin To: Aubree Larkin Reviewed by Vianey Reis MD on 07/05; All test results are final unless otherwise noted. SURGICAL PATHOLOGY [facility] Ordered by Vianey Reis MD on 05/31/2020 Collected: 05/31/2020 Reported: 06/10/2020 06:59 Pathology studies See scanned report None Note: Responsible Observer: SURGICAL PAT H SURGICAL PATHOLOGY 805.6120 (A) NOTES See Note None Note: PATH SPEC #:: [id number] Reviewed by Vianey Reis MD on 06/11; All test results are final unless otherwise noted. Reported Physicians [facility] Ordered by Vianey Reis MD on 05/31/2020 Collected: 05/31/2020 Reported: 06/10/2020 06:59 Reported Physicians See Note None Note: Reported Physicians:Ordering: Vianey CaceresAttending: Vianey Reis Reviewed by Vianey Reis MD on 06/11; All test results are final unless otherwise noted. Respiratory Panel PCR [facility] Ordered by Aubree Larkin RPA on 04/02/2020 Collected: 04/02/2020 Reported: 04/02/2020 11:39 Resp path DNA+RNA Pnl Nph ALEJANDRO+non-probe See Note None Note: THIS RP PANEL TESTS FOR SA RS-CoV-2,(COVID-19)FilmArray Respiratory Panel is a Multiplexed NAAT-PCR testNORMAL VALUE FOR ALL 20 PATHOGENS IS "NOT DETECTED".The FilmArray RP panel detects Influenza A H1,H3 [id number] H1 viruses,Influenza B virus, Respiratory syncytialvirus, Human metapneumovirus,Parainfluenza virus 1,2,3, and4, Adenovirus,Rhino/Enterovirus,Coronavirus HKU 1, Nl63,OC43, and 229E,Bordetella pertussis, Bordetellaparapertussis, Mycoplasma pneumoniae and Chlamydiapneumoniae, SARS-CoV-2 (COVID 19).THIS TEST HAS NOT BEEN EVALUATED FOR USE WITH SPECIMENSOTHER THAN NASOPHARYNGEAL SWAB SPECIMENS.THE PERFORMANCE OF THIS TEST HAS NOT BEEN ESTABLISHED FORPATIENTS WITHOUT SIGNS AND SYMPTOMS OF RESPIRATORYINFECTION.RESULTS FROM THIS TEST MUST BE CORRELATED WITH CLINICALHISTORY, EPIDEMIOLOGICAL DATA , AND OTHER DATA AVAILABLE TOTHE CLINICIAN EVALUATING THE PATIENT.THE PERFORMANCE OF THE FilmARRAY RP HAS NOT BEEN ESTABLISHEDIN INDIVIDUALS WHO RECEIVED INFLUENZA VACCINE. RECENTADMINISTRATION OF A NASAL INFLUENZA VACCINE MAY CAUSE AFALSE POSITIVE RESULT FOR INFLUENZA A AND/OR B.NEGATIVE RESULTS SHOULD NOT BE USED THE SOLE BASIS FORDIAGNOSIS, TREATMENT, OR OTHER MANAGEMENT DECISIONS.NEGATIVE RESULTS IN THE SETTING OF A RESPIRATORY ILLNESSMAYBE DUE TO INFECTION WITH PATHOGENS THAT ARE NOT DETECTEDBY THIS TEST OR LOWER RESPIRATORY TRACT INFECTION THAT ISNOT DETECTED BY A NASOPH ARYNGEAL SWAB SPECIMEN.NOSNo Organisms [id number] Organisms Detected Reviewed by Aubree Larkin RPA on 04/04; All test results are final unless otherwise noted. Strep antigen throat [facility] Ordered by Aubree Larkin RPA on 04/02/2020 Collected: 04/02/2020 Reported: 04/02/2020 12:04 Strep Antigen throat Negative by antigen detection methods None NOTES See Note None Note: @04/02/20 1204: Throat strep sc ad ded. RFLXG = THSS. Reviewed by Aubree Larkin RPA on 04/04; All test results are final unless otherwise noted. Throat strep screen [facility] Ordered by Aubree Larkin RPA on 04/02/2020 Collected: 04/02/2020 Reported: 04/03/2020 10:57 Throat culture strep No Beta Strep isolated None NOTES See Note None Note: @04/02/20 1204: Throat strep sc ad ded. RFLXG = THSS. Reviewed by Aubree Larkin RPA on 04/04; All test results are final unless otherwise noted. Reported Physicians [facility] Ordered by Aubree Larkin RPA on 04/02/2020 Collected: 04/02/2020 Reported: 04/03/2020 10:58 Reported Physicians See Note None Note: Reported Physicians:Ordering: Melissa Chambersending: Lindsay Esquivel To: Vianey Reis Reviewed by Aubree Larkin RPA on 04/04; All test results are final unless otherwise noted. Strep antigen throat [facility] Ordered by Aubree Larkin RPA on 04/02/2020 Collected: 04/02/2020 Reported: 04/03/2020 10:57 Strep Antigen throat Negative by antigen detection methods None NOTES See Note None Note: @04/02/20 1204: Throat strep sc ad ded. RFLXG = THSS. Reviewed by Aubree Larkin RPA on 04/04; All test results are final unless otherwise noted. Reported Physicians [facility] Ordered by Aubree Larkin RPA on 04/02/2020 Collected: 04/02/2020 Reported: 04/03/2020 10:58 Reported Physicians See Note None Note: Reported Physicians:Ordering: Melissa Chambersending: Lindsay Esquivel To: Vianey Reis Reviewed by Aubree Larkin RPA on 04/04; All test results are final unless otherwise noted. History of Present Illness History of Present Illness not supported for this document typeNo History of Present Illness Recorded Social History Description Last Updated In monogamous relationship 03/10/2020 Currently ; Rahul with one healthy child (Will) 03/10/2020 Occupation ; [employer] 03/10/2020 No consumption of alcohol 03/10/2020 No tobacco use 09/22/2009 Not using drugs 09/22/2009 Smoking Status Unknown Procedures and Surgical History Includes: Procedures from 08/16/2019 through 08/15/2020 Procedures Code Diagnosis Performing Provider Service Location Service Date Urinalysis w/o Microscopy [address] Dysuria Vianey han MD [facility], [facility] 08/09/2020 no charge procedure [place] Neoplasm of uncertai n behavior of skin, Encounter for removal of sutures Aubree Larkin RPA [facility], [facility] 06/07/2020 Excision Benign Lesion .5 cm or less (trunk, arms, legs) 1 1400 Neoplasm of uncertain behavior of skin Vianey Reis MD [facility], [facility] 05/31/2020 Removal, non biodegradable implant (NEXP LANON) (Distinct Seperate service-same day) 38633 Nexplanon surveillance ( implantable sub dermal contraceptive Vianey Reis MD [facility], [facility] 05/31/2020 Surgical History Last Updated Prior surgery , unresponsive to anesthesia 1 Medical History Includes: Medical History in patient's chart Description Last Updated No recent immunization for flu 07/10/2016 No previous hospitalizations , did have Lamb, '04, 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/22/2009 Family History Includes: Family History in patient's chart Description Last Updated Mother in good health fibromyalgia, seasonal affect, DM type II 03/10/2020 Brother in good health ; anxiety 03/10/2020 Father alive and well ; HTN, Hyperlipidemia, DM Type I I 03/10/2020 Second brother in good health ; HTN 03/10/2020 Family history of headache syndromes , Mom with migrai brianda 09/22/2009 Review of Systems Review of Systems not supported for this document typeNo Review of Systems Recorded Mental Status Mental Status not supported for this document typeNo Mental Status Recorded Functional Status Functional Status not supported for this document typeNo Functional Status Recorded Physical Exam Physical Exam not supported for this document typeNo Physical Exam Recorded Immunizations Includes: Immunizations in patient's chart Vaccine Dose # Date Site Reaction(s) Status Source DTaP 1 1993 Complete (Reported) Patient DTaP 2 1993 Complete (Reported) Patient DTaP 3 1993 Complete (Reported) Patient DTaP 4 07/18/1994 Complete (Reported) Patient DTaP 5 12/28/1997 Complete (Reported) Patient H1N1 1 05/02/2009 Complete (Reported) Patient Hep A, ped/adol (2 dose) 1 02/01/2011 Complete (Re ported) Patient Hep A, ped/adol (2 dose) 2 08/22/2011 Complete (Re ported) Patient Hep B pediatric 1 1993 Complete (Reported) P atient Hep B pediatric 2 1993 Complete (Reported) P atient Hep B pediatric 3 1993 Complete (Reported) P atient HIb (PRP-OMP PedvaxHIB) 1 1993 Complete (Rep orted) Patient HIb (PRP-OMP PedvaxHIB) 2 1993 Complete (Rep orted) Patient HIb (PRP-OMP PedvaxHIB) 3 1993 Complete (Rep orted) Patient HIb (PRP-OMP PedvaxHIB) 4 07/18/1994 Complete (Rep orted) Patient Influenza, seasonal, injectable 1 05[facility]2012 [facility], [facility] 03/10/2019 Left Deltoid Complete (Administered) [facility] IPV 1 1993 Complete (Reported) Patient IPV 2 1993 Complete (Reported) Patient IPV 3 1993 Complete (Reported) Patient IPV 4 12/28/1997 Complete (Reported) Patient Meningococcal (MCV4) conjugate vaccine 1 02/01/2011 Complete (Reported) Patient MMR 1 07/18/1994 Complete (Reported) Patient MMR 2 12/28/1997 Complete (Reported) Patient Tdap (> 7 yrs) 1 08/15/2005 Complete (Reported) Pa tient Tdap (> 7 yrs) 2 10/07/2018 Right Deltoid Complete ( Administered) [facility] Allergies Includes: Active, inactive, and resolved Allergies Substance Type Reaction Onset Date - Time Resolved Date - Ti me Status Sulfamethoxazole-Trimethoprim Allergy sensitive to 07/10/2016 - 12 :00AM Active Note: [Previous Allergy Desc ription Known As: Bactrim (Sulfamethoxazole- Trimethoprim)][Previous Allergy Description Known As: Bactrim (Sulfamethoxazole- Trimethoprim)][Previous Allergy Description Known As: Bactrim (Sulfamethoxazole- Trimethoprim)][Previous Allergy Description Known As: Bactrim (Sulfamethoxazole- Trimethoprim)][Previous Allergy Description Known As: Bactrim (Sulfamethoxazole-Trimethoprim)][Previous Allergy Description Known As: Bactrim (Sulfamethoxazole-Trimethoprim)] Nitrofurantoin Monohyd Macro Allergy Nausea, Vomiting 08/15/2020 - 10:33AM Active Imitrex Intolerance nausea 02/07/2016 - 12:00AM Act luba Amoxicillin Allergy Skin Rashes, Hives 07/10/2016 - 12:00AM Active Encounters Includes: Encounters from 08/16/2019 through 08/15/2020 Encounter Provider Location Date Check-In Time Check-Out Time D iagnosis nursing visit Vianey Reis MD [facility], [facility] 08/09/2020 8:08AM 8:19AM Lab Requistion- picker in office Vianey Reis MD 07/04/2020 06/07/2020 8:58AM 06/07/2020 11:59PM Ambulatory Procedure Aubree Larkin [facility], [facility] 06/07/2020 11:26AM 11:55AM Dysplastic Nevus Ambulatory Procedure Vianey Reis MD [facility], [facility] 05/31/2020 9:55AM 10:48AM Visit For: Contracep tive Management, Dysplastic Nevus, Signs and Symptoms in Breast ANNUAL PE-followup Aubree Larkin [facility], [facility] 03/10/2020 2:58PM 3:59PM Routine History and Physical Adult (18 - 64 Yrs), Skin Neoplasm Uncertain Behavior, Acrochordon followup Vianey Resi MD [facility], [facility] 0 11/16/2019 11:33AM 11:52AM Depression, Metab olic Disorders, Disorder of Mitochondrial Metabolism, Generalized Anxiety Disorder, Post-traumatic Stress Disorder followup Vianey Reis MD [facility], [facility] 10/12 1:24PM 1:51PM Depression, Metabolic Disorde rs, Disorder of Mitochondrial Metabolism Insurance Includes: Active Insurance Policies Plan Name Member ID Group # Subscriber Relationship Effective Da devante 1 - [place] Plan-[id number] Nataliia Bustamante Self Advance Directives Includes: Current Advance DirectivesNo Advance Directives Recorded Health Concerns Includes: Active Health ConcernsNo Active Health Concerns Recorded Goals Includes: Active GoalsNo Active Goals Recorded Interventions Includes: Interventions for active GoalsNo Interventions Recorded Evaluations & Outcomes Includes: Evaluations & Outcomes for active GoalsNo Outcomes Recorded
--- OUTSIDE RECORDS SUMMARY | 2021-03-12 03:38 | CCD ---
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 Active confirmed [id number] Problem Supervision of other normal Z34.80 Ac tive confirm [id number] ALLERGIES No Known Allergies ENCOUNTERS from 1993 to 2021-02-26 Encounter Location Date Provider Diagnosis [facility] [address] [place] [address] [place] [address] Feb, Km Velasco Encounter for superv ision of normal in multigravida in third trimester Z34.83 IMMUNIZATIONS Vaccine Route Administration Date Status TDAP [...] FOR REFERRAL No Information VITAL SIGNS Weight 204 lbs Feb, Height 68 in Feb, BMI 31.018 kg/m2 Feb, Blood pressure systolic 122 mm Hg Feb, Blood pressure diastolic 72 mm Hg Feb, MEDICATIONS Medication SIG (Take, [...] kidney infections Surgical History 2019 Surgical History [place] teeth Hospitalization History /hematoma Hospitalization History Kidney infection Goals Section No Information Health Concerns No Information MEDICAL EQUIPMENT No Information MENTAL STATUS No Information FUNCTIONAL STATUS No Information ASSESSMENTS Encounter Date Diagnosis Assessment Notes Treatment Notes Treatm ent Clinical Notes Feb, Encounter for supervision of normal in multigravida in third trimester (ICD-10 - Z34.83) PLAN OF TREATMENT Next Appt Details Provider Name:Oj Mckeon, 2021-02-27 1 0:40:00 AM, [address] [place] [address] , [place], [address], Provider Name:Oj Mckeon, 2021-03-06 1 0:40:00 AM, [address] [place] [address], , [place], [address], Provider Name:Oj Mckeon, 2021-03-13 1 0:40:00 AM, [address] [place] [address] , [place], [address], Insurance Providers Payer Name Payer Address Payer Phone Insured Name Patient Relati onship to Insured Coverage Start Date Coverage End Date FOR[facility]LY [facility] [place] [address] [facility] [id number] KAYDEN CUMMINGS self
--- OUTSIDE RECORDS SUMMARY | 2021-03-12 03:38 | CCD ---
Author Author [facility] Organization [facility] Address [address] [facility] [address] [place] [address] Phone Care Team Providers Care It Help Desk Associate Name Role Phone Yadira CHAVEZ, Behzad Unavailable Unavailable Jose Cruz CHAVEZ, Nellie Unavailable Unavailable Smiley CHAVEZ, Vianey Escobedo PP [phone] Reason for Referral No Reason for Referral [...] Metabolic Disorders 10/13/2019 - 12:00AM Aubree lópez [facility] Active Note: CYP- P2D6 with express [...] Paco Lee MD Active Plan of Treatment Care Programs [facility] - [facility] Future Appointments Date Time Location Provider REVISIT- Routine (OB) Visit 09/13/2020 11:30AM [facility], [facility] Vianey Reis MD Findings Encounter Date Education [...] start vitamin ANNUAL PE-followup with Aubree Larkin [facility] 03/10/2020 Discussed treatment plan with the [...] or concerns sick visit with Aubree Larkin [facility] 04/21/2019 Discussed treatment plan with the daya ent. Will refer to Sub Acute Care Nurse for testing to see if this could be correlated with headaches. In regards to skin lesions, ABCDE were reviewed today of concerning lesions. If area to left upper arm returns will consider referral for biopsy. Reviewed importance of sunscreen sick visit with Aubree Larkin [facility] 08/06/2017 Engaged in a lengthy conversation [...] questions or concerns followup with Aubree Larkin [facility] 11/09/2016 Engaged in a lengthy conversation with [...] issues arise sick visit with Aubree Larkin [facility] 08/21/2016 Tylenol for discomfort or fever. [...] or concerns sick visit with Aubree Larkin [facility] 10/04/2015 Tylenol for discomfort or fever. Push [...] beta hemolytic sick visit with Aung Johns [facility] 01/23/2012 Assessments Includes: Assessments for all patient [...] Vianey Reis MD 05/31/2020 Acrochordon ANNUAL PE-followup with Aubree Larkin [facility] 03/10/2020 Routine adult history and physical (18 - 64 yrs) ANNUA L PE-followup exam/30 with Aubree Larkin [facility] 03/10/2020 Skin neoplasm of uncertain behavior ANNUAL PE-followup exam/ with Aubree Larkin [facility] 03/10/2020 Disorder of mitochondrial metabolism followup with Vianey Reis MD 11/16/2019 Generalized anxiety disorder followup with Vianey Reis MD 11/16/2019 Metabolic disorders [id number] with expres collin of *6 and *41. Has appointment scheduled with Document Preparation Specialist December 06 [Deficiency of multiple nutrient elements] followup with Vianey Reis MD 11/16/2019 depression continue xanax pr n at this time, follow-up with new psychiatrist and Document Preparation Specialist. Continue counseling. Counseling provided today [ depression] followup with Vianey Reis MD 11/16/2019 Post-traumatic stress disorder followup with Vianey han MD 11/16/2019 Disorder of mitochondrial metabolism followup with Vianey Reis MD 10/13/2019 Metabolic disorders [id number] with expres collin of *6 and *41. Consider consultation with Pharm D for further assistance with medication management [Deficiency of multiple nutrient elements] followup with Vianey Reis MD 10/13/2019 depression and anxiety, cont inue xanax prn at this time, follow-up with new psychiatrist [ depression] followup with Vianey Reis MD 10/13/2019 Disorder of mitochondrial metabolism sick visit with Aubree Larkin [facility] 04/21/2019 Metabolic disorders CYP- P2D6 with expression of *6 a nd *41 sick visit with Aubree Larkin [facility] 04/21/2019 depression and anxiety sick visit with Aubree contreras [facility] 04/21/2019 Encounter for implantable subdermal contraceptive Ambu latory Procedure with Aubree Larkin [facility] 03/23/2019 Hematoma of obstetrical wound Healing w ell via secondary intention. Reassurance provided today [Hematoma of obstetric wound] Post Visit with Vianey Reis MD 03/10/2019 depression Plan to resume se rtraline once incision is healed, patient hesitant to start it now due to concern regarding possibility of incisional hematoma. Continue therapy with Sanam Matthew and Klonopin HS [ depression] Post Visit with Vianey [...] Continue therapy with Sanam Matthew and Klonopin HS [ depression] Post Visit with Vianey [...] [Hematoma of obstetric wound] Post Visit with Viaeny Reis MD 02/10/2019 depression Continuing to imp [...] pain has improved. Therapy scheduled with Sanam Clementeco. Continue Klonopin BID [ depression] Post Visit [...] upper arm sick visit with Julieth Larkin [facility] 08/06/2017 Allergic rhinitis sick visit with Aubree Larkin [facility] 07/19 Common migraine (without aura) with intractable migrai ne sick visit with Aubree Larkin [facility] 08/06/2017 Acute upper respiratory infection Suspe [...] of cough urgent visit with Deandra Beasley RPA 02/04 Common migraine (without aura) followup with Aubree Larkin [facility] 11/09/2016 Irritable bowel syndrome followup with Aubree Larkin [facility] 0 11/09/2016 Irritable bowel syndrome sick visit with Aubree Larkin [facility] 08/21/2016 Malaise urgent visit with Deandra Beasley RPA 07/10 Pharyngitis urgent visit with Deandra Beasley RPA 07/10 Presyncope syndrome urgent visit with Deandra Beasley RPA 07/10 Classic migraine with aura with intractable [...] (without aura) sick visit with Aubree lópez RPA 10/04/2015 Influenza sick visit with Aubree Larkin RPA 06/2014 Irritable bowel syndrome followup with Paco ramires MD 01/29/2013 Working diagnosis of irritable bowel syndrome sick vis it with Aung Johns RPA 01/12/2013 Possible irritable bowel syndrome sick visit with Paco Lee MD 12/18/2012 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 Follow up at [facility] this spring new patient with Rose Mullins MD 09/22/2009 Probable cluster headache as well. [...] Medications Current Medications (continue as prescribed) Cephalexin 250 MG Oral Capsule 08/16/2020 Provider: Vianey Reis MD Diagnosis: 1 PO QD Cephalexin 500 MG Oral Capsule 08/15/2020 Provider: Vianey Reis MD Diagnosis: 1 PO QID ALPRAZolam 0.5 MG Oral Tablet 10/13/2019 Provider: Vianey Reis MD Diagnosis: as directed 1/2 tab or 1 tab PO BID prn tremor/anxiety MDD: 2 Reference #: [id number] Past Medications on file Cephalexin 500 MG Oral Capsule 08/15/2020 - 08/09/2020 Provi libby: Vianey Reis MD Diagnosis: 1 PO QID Nitrofurantoin Monohyd Macro 100 MG Oral Capsule 08/09/2020 - 08/16/2020 Provider: Vianey Reis MD Diagnosis: 1 PO BID ALPRAZolam 0.5 MG Oral Tablet 10/13/2019 - 10/13/2019 Provid er: Vianey Reis MD Diagnosis: as directed 1/2 tab or 1 tab PO BID prn tremor/anxiety MDD: 2 Reference #: [id number] ALPRAZolam 0.5 MG Oral Tablet 10/10/2019 - 10/13/2019 Provid er: Yadiel Costello Diagnosis: ALPRAZolam Powder 10/10/2019 - 10/13/2019 Provider: Yadiel Costello Diagnosis: Nefazodone HCl 100 MG Oral Tablet 09/21/2019 - 10/13/2019 Pr ovider: Diagnosis: LORazepam 1MG Oral Tablet 05/15/2019 - 10/13/2019 Provider: Vianey Reis MD Diagnosis: 1 PO QD prn anxiety MDD: 1 Reference #: [id number] Cephalexin 500MG Oral Capsule 05/15/2019 - 03/10/2020 Provid er: Vianey Reis MD Diagnosis: 1 PO BID LORazepam 1MG Oral Tablet 04/17/2019 - 10/13/2019 Provider: Francisco Javier Basurto MD Diagnosis: clonazePAM 0.5MG Oral Tablet 04/13/2019 - 10/13/2019 Provide r: Vianey Reis MD Diagnosis: 1 PO BID MDD: 2 Reference #: [id number] Nexplanon 68MG Subcutaneous Implant 03/06/2019 - 05/31/2020 Provider: Vianey Reis MD Diagnosis: as directed one subcutaneous implant Reference #: [id number] Clindamycin HCl 300MG Oral Capsule 01/14/2019 - 02/06/2019 P rovider: Vianey Reis MD Diagnosis: Cephalexin 500MG Oral Capsule 01/12/2019 - 01/16/2019 Provid er: Vianey Reis MD Diagnosis: 1 PO QID clonazePAM 0.5MG Oral Tablet 01/09/2019 - 04/13/2019 Provide r: Vianey Reis MD Diagnosis: 1 PO BID MDD: 2 Reference #: [id number] Sertraline HCl 50MG Oral Tablet 01/05/2019 - 01/16/2019 Prov ider: Vianey Reis MD Diagnosis: clonazePAM 0.5MG Oral Tablet 01/05/2019 - 01/09/2019 Provide r: Vianey Reis MD Diagnosis: oxyCODONE HCl 5MG Oral Capsule 09/02/2018 - 09/07/2018 Provi libby: Vianey Reis MD Diagnosis: 1 every 4 - 6 hours as needed prn headache MDD: 2 Reference #: [id number] Cephalexin 250MG Oral Capsule 07/08/2018 - 01/04/2019 Provid er: Aubree Larkin RPA Diagnosis: 1 PO QD Rzwmxabdtn-CTGT-Ilnuomle 50-325-40MG Oral Capsule 06/18/2018 - 03/10/2020 Provider: [...] MG Capsule 01/26/2017 - 04/18/2017 Provider: Fabiana Dey NP Diagnosis: Azithromycin Powder 01/26/2017 - 04/18/2017 Provider: Fabiana Dey NP Diagnosis: Cefdinir 125 MG/5ML Suspension Reconstituted 01/22/2017 - Provider: Diagnosis: Tamiflu 75 MG Capsule 07/10/2016 - 04/18/2017 Provider: Deandra Beasley RPA Diagnosis: Other malaise as directed 1 tab po bid x 5days Kelnor 1-35 MG-MCG Tablet 06/02/2016 - 06/18/2018 Provi [...] Influenza-NOS w/wo o ther respiratory manifestations Zovia 135E (28) 1-35 MG-MCG OR TABS 05/17/2014 - 07/10/2016 Provider: Diagnosis: Nortriptyline HCl 10 MG OR CAPS 04/09/2013 - 02/07/2016 Prov ider: Aung Johns RPA Diagnosis: MIGRAINE HEADACHE WI TH AURA Linzess 145 MCG OR CAPS 01/29/2013 - 02/07/2016 Provider: Paco Lee MD Diagnosis: Irritable Bowel Synd maryam Nortriptyline HCl 10 MG OR CAPS 05/22/2012 [...] 04/17/2012 Provider: Aung Johns RPA Diagnosis: Pharyngitis [employer]PERI[employer]IST 10 MG OR TBDP 09/22/2009 - 02/07/2016 Provider: Rose Mullins MD Diagnosis: 1 tab at onset of headache Medications Administered Includes: Administered Medications in patient's chartNo Administered Medications Recorded Vital Signs Includes: Vital Signs from 08/18/2019 through 08/17/2020 Vital Name 08/16/2020 10:07A 08/09/2020 08:20A 06/07/2020 11:37A 05/31/2020 10:13A 03/10/2020 03:00P Blood Pressure Sitting R 114/70 BP Cuff Size Large Pulse Rate-Sitting (bpm) 68 72 100 86 Respiration Rate (breaths/min) 20 22 18 20 Height (in) 68 68 68 68 68 Weight (lb) 186.125 191 188 Body Mass Index (kg/m2) 28.3 29.0 2 8.6 Body Surface Area (m2) 1.98 2.00 1. 99 Blood Pressure Sitting (mmHg) 128/64 136/74 108/72 Temp-Oral (F) 98.4 Oxygen Saturation (%) 98 Vital Name 11/16/2019 11:38A 10/13/2019 01:30P Pulse Rate-Sitting (bpm) 78 76 Respiration Rate (breaths/min) 20 18 Weight (lb) 189 Blood Pressure Sitting (mmHg) 120/80 96/60 Results Includes: Results from 08/18/2019 through 08/17/[address]/NG RT-PCR [facility] Ordered by Vianey Reis MD on 08/16/2020 Collected: 08/16/2020 Reported: 08/16/2020 17:[address]/NG RT-PCR See Note None Note: CT/NG IS A QUALITATIVE IN VITRO RE AL-TIME PCR TEST FORDETECTION OF CHLAMYDIA TRACHOMATIS (CT) AND NEISSERIAGONORRHOEAE (NG)NORMAL VALUE FOR CT/NG IS " NO ORGANISMS DETECTED "99525-5O trach DNA Vag Ql ALEJANDRO+probeLNCHLAMNC. trachomatis NOT [id number]. trachomatis NOT [id number] gonorrhoea rRNA Vag Ql ALEJANDRO+probeLNNEIGNN.gonorrhoeae NOT [id number].gonorrhoeae NOT DETECTED Reviewed by Vianey Reis MD on 08/17; All test results are final unless otherwise noted. Reported Physicians [facility] Ordered by Vianey Reis MD on 08/16/2020 Collected: 08/16/2020 Reported: 08/16/2020 17:40 Reported Physicians See Note None Note: Reported Physicians:Ordering: Madhuri Caceresending: Vianey Reis Reviewed by Vianey Reis MD on 08/17; All test results are final unless otherwise noted. Urine culture [facility] Ordered by Vianey Reis MD on 08/11/2020 Collected: 08/11/2020 Reported: 08/12/2020 13:00 Urine culture result See Note None Note: 25,000 CFU/MLStaph spp. coag negNo rmal Commensal FloraProbable contaminants no senst done Reviewed by Vianey Reis MD on 08/16; All test results are final unless otherwise noted. MEDMATCH [facility] Ordered by Vianey Reis MD on 08/11/2020 Collected: 08/11/2020 Reported: 08/15/2020 15:45 MEDMATCH See scanned report None Note: Responsible Observer: [employer] MED MATCH [id number] ([employer]) Reviewed by Vianey Reis MD on 08/16; All test results are final unless otherwise noted. ADD ON MICROSCOPIC [facility] Ordered by Vianey Reis MD on 08/11/2020 Collected: 08/11/2020 Reported: 08/11/2020 12:22 ADD ON MICROSCOPIC See Note (0-5) None Note: NOTES OTHER/NOT INTERPRETED Bacteria UrnS Ql Micro MODERATE AMOUNT Bacteria UrnS Ql Micro MODERATE AMOUNT Bacteria UrnS Ql Micro L Bacteria UrnS Ql Micro Bacteria UrnS Ql Micro Bacteria UrnS Ql Micro Bacteria UrnS Ql Micro [id number] Bacteria UrnS Ql Micro Bacteria UrnS Ql [...] are final unless otherwise noted. Reported Physicians [facility] Ordered by Vianey Reis MD on 08/11/2020 Collected: 08/11/2020 Reported: 08/11/2020 12:23 Reported Physicians See Note None Note: Reported Physicians:Ordering: Vianey CaceresAttending: Vianey Reis Reviewed by Vianey Reis MD on 08/15; All test results are final unless otherwise noted. URINALYSIS [facility] Ordered by Vianey Reis MD on 08/11/2020 Collected: 08/11/2020 Reported: 08/11/2020 12:22 Urobilinogen Ur Ql See Note (0.2-1 EU/dl) None Note: 0.2 EU/dl0.2 EU/[id number] E U/dlResponsible Observer: UROBILINOGEN UROBILINOGEN 300.4500 (C) RBC # Ur Strip NEGATIVE (NEGATIVE) None Note: Responsible Observer: BLOOD BLOOD 300.4650 (C) Prot Ur Ql Strip See Note (NEGATIVE) None Note: [id number] EResponsible Observer: PROTEIN PROTEIN 300.3750 (C) Ketones Ur Ql Strip See Note (NEGATIVE) None Note: [id number] EResponsible Observer: KETONE KETONE 300.3900 (C) Bilirub Ur Ql Strip.auto See Note (NEGATIVE) None Note: [id number] EResponsible Observer: BILIRUBIN BILIRUBIN 300.4550 (C) Glucose Ur Strip.auto-mCnc NEGATIVE (NEGATIVE) None Note: Responsible Observer: GLUCOSE GLUC OSE 300.3850 (C) Appearance Ur See Note (CLEAR) A (Abnormal) Note: CLOUDYCLOUDYLCLOUDYResponsible Obs erver: APPEARANCE APPEARANCE 300.3400 (A) Color Ur See Note None Note: YELLOWYELLOWLYELLOWResponsible Obs erver: COLOR COLOR 300.3300 (A) Leukocyte esterase Ur Ql Strip See Note (NEGATIVE) None Note: [id number]@DO MICR O!!!!Responsible Observer: LEUKOCYTES LEUKOCYTES 300.3575 (C) Nitrite Ur Ql Strip See Note (NEGATIVE) None Note: [id number] EResponsible Observer: NITRITE NITRITE 300.3650 (B) pH [...] Catch Reviewed by Vianey Reis MD on 08/16; All test results are final unless otherwise noted. Reported Physicians [facility] Ordered by Vianey Reis MD on 08/11/2020 Collected: 08/11/2020 Reported: 08/15/2020 15:45 Reported Physicians See Note None Note: Reported Physicians:Ordering: Vianey CaceresAttending: Vianey Reis Reviewed by Vianey Reis MD on 08/16; All test results are final unless otherwise noted. MANUAL DIFF, PNP [facility] Ordered by Vianey Reis MD [...] final unless otherwise noted. Varicella-Zoster IgG Antibody [facility] Ordered by Vianey Reis MD [...] Antibody Immunity Screen, ACIF.THIS TEST WAS PERFORMED AT:[facility] [address]WQQWMT ME RATI,MDResponsible Observer: VARICELLA IGG Varicella-Zoster IgG Antibody [id number] 719.9819 ([employer]) NOTES See Note None Note: Patient Street Address: [address] [place] [address] City: [facility] State: [facility] Zip Code: [address] Phone Number: [phone] Reviewed by Vianey Reis MD on 08/15; All test results are final unless otherwise noted. Reported Physicians [facility] Ordered by Vianey Reis MD on 08/11/2020 Collected: 08/11/2020 Reported: 08/12/2020 15:21 Reported Physicians See Note None Note: Reported Physicians:Ordering: Vianey CaceresAttending: Vianey Reis Reviewed by Vianey Reis MD on 08/15; All test results are final unless otherwise noted. CBC [facility] Ordered by Vianey Reis MD [...] Auto See Note (0-2) N (Normal) Note: [id number] Ob seismograph observer: IG% IG% 100.1375 (B) Hct VFr Bld [...] DIFFPNP. Reviewed by Vianey Reis MD on 08/16; All test results are final unless otherwise noted. TSH [facility] Ordered by Vianey Reis MD on 08/11/2020 Collected: 08/11/2020 Reported: 08/11/2020 12:16 TSH SerPl DL<=0.005 mIU/L-aCnc 1.08 MicroInternationalUnitsPerMilliLiter_[Arbitrary_Con (0.35-5. 50) N (Normal) Note: Responsible Observer: TSH TSH 600 .7055 (D) Reviewed by Vianey Ries MD on 08/16; All test results are final unless otherwise noted. Lead (Venous) Wh.Bld [facility] Ordered by Vianey Reis MD on 08/11/2020 Collected: 08/11/2020 Reported: 08/12/2020 15:21 Lead Bld-sCnc <1 (<5) None Note: See Note 1Note 1This test was imelda mcgowan and its analytical performancecharacteristics have been determined by [employer]. It has not been cleared or approved by theA. This assay has been validated pursuant to the CLIAregulations and is used for clinical purposes.THIS TEST WAS PERFORMED AT:[facility] [address]LHPPDKGary MCKAY Observer: Lead, WB Lead, Whole Blood [id number] 195.9103 ([employer]) NOTES See Note None Note: Patient Street Address: [address] [place] [address] City: [facility] State: [facility] Zip Code: [address] Phone Number: [phone] Reviewed by Vianey Reis MD on 08/16; All test results are final unless otherwise noted. ncPN REF [facility] Ordered by Vianey Reis MD on 08/11/2020 Collected: 08/11/2020 Reported: 08/16/2020 11:23 T pallidum Ab Ser Ql Aggl See Note (Nonreactive) None Note: [id number] onreactiveTHIS TEST WAS PERFORMED AT:[facility] [place], [place] [address]PAJERONIMO LUNDY MD,PHDResponsible Observer: TP-PA Treponema pallidum Ab (TP-PA) [id number] 908.0286 ([facility]) HIV1 RNA SerPl Ql ALEJANDRO+probe See Note None Note: TNPNo Reportable ResultLTNPNo Repo rtable ResultLLEP.LIVENTNPResponsible Observer: HIV 1 RNA, QL T HIV 1 RNA, QL TMA [id number] 908.0254 ([facility]) RPR Ser-Titr See Note None Note: TNPNo Reportable ResultLTNPNo Repo rtable ResultLLEP.LIVENTNPResponsible Observer: RPR TITER (REFL RPR TITER (REFLEX) [id number] 908.0292 ([facility]) HBV surface Ag SerPl Ql IA See Note (NON-REACTIVE) None Note: IHL-NWZULNBBPEQ-[id number] 1NON-REACTIVETHIS TEST WAS PERFORMED AT:[facility] [address]YYHBMWDANAY MCKAYesponsible Observer: HBSAG Hepatitis B Surface Antigen [id number] 0.2004 ([facility]) RUBV IgG SerPl IA-aCnc 5.89 None Note: Index Interpretatio n ----- <0.90 Not consistent with immunity 0.90-0.99 Equivocal > or = 1.00 Consistent with immunityThe presence of rubella IgG antibody suggestsimmunization or past or current infection withrubella virus.THIS TEST WAS PERFORMED AT:[facility] [address]LOSQGF MERATI,MDResponsible Observer: Rubella IgG Ab Rubella IgG Ab [id number] 911.2840 ([facility]) HIV1 Ab SerPlBld Ql IA.rapid See Note None Note: TNPNo Reportable ResultLTNPNo Repo rtable ResultLLEP.LIVENTNPResponsible Observer: HIV 1 AB HIV 1 AB [id number] 908.0250 ([facility]) Rapid Plasma Reagin (RPR) See Note None Note: TNPNo Reportable ResultLTNPNo Repo rtable ResultLLEP.LIVENTNPResponsible Observer: RPR Rapid Plasma Reagin (RPR) [id number] 908.0290 ([facility]) HBsAg Confirmation See Note None Note: TNPNo Reportable ResultLTNPNo Repo rtable ResultLLEP.LIVENTNPResponsible Observer: HBsAg Confirm HBsAg Confirmation [id number] 910.2006 ([facility]) HIV (1&2) Screen, 4th Gen NON-REACTIVE (NON-REACTIVE) None Note: HIV-1 antigen and HIV-1/HIV-2 anti bodies were notdetected. There is no laboratory evidence of HIVinfection.PLEASE NOTE: This information has been disclosed toyou from records whose confidentiality may beprotected by state law. If your state requires suchprotection, then the state law prohibits you frommaking any further disclosure of the informationwithout the specific written consent of the personto whom it pertains, or as otherwise permitted by law.A general authorization for the release of medical orother information is NOT sufficient for this purpose.For additional information please refer tohttp://education.Easycause.Splinter.me/faq/ZFD703(This link is being provided for informational/educational purposes only.)The performance of this assay has not been clinicallyvalidated in patients less than 2 years old.THIS TEST WAS PERFORMED AT:[facility]-[address] [address]PHYSWT MERATI,DANAYesponsible Observer: HIV ABS HIV (1&2) Screen, 4th Gen [id number] 908.0228 (I) Reviewed by Vianey Reis MD on 08/16; All test results are final unless otherwise noted. Reported Physicians [facility] Ordered by Vianey Reis MD on 08/11/2020 Collected: 08/11/2020 Reported: 08/16/2020 11:23 Reported Physicians See Note None Note: Reported Physicians:Ordering: Madhuri Caceresending: Vianey Reis Reviewed by Vianey Reis MD on 08/16; All test results are final unless otherwise noted. Type and Screen [facility] Ordered by Vianey Reis MD [...] are final unless otherwise noted. Reported Physicians [facility] Ordered by Vianey Reis MD on 08/11/2020 Collected: 08/11/2020 Reported: 08/11/2020 13:01 Reported Physicians See Note None Note: Reported Physicians:Ordering: Vianey CaceresAttending: Vianey Reis Reviewed by Vianey Reis MD on 08/15; All test results are final unless otherwise noted. HCV RFX ALEJANDRO [facility] Ordered by Vianey Reis MD on 08/11/2020 Collected: 08/11/2020 Reported: 08/12/2020 15:21 HCV RNA SerPl ALEJANDRO+probe-aCnc See Note None Note: TNPNo Reportable ResultLTNPNo Repo rtable ResultLLEP.LIVENTNPResponsible Observer: HCV RNA, QN PCR HCV RNA, QUANT RT-PCR [id number] 914.8340 ([facility]) HCV Ab Ser Ql See Note (NON-REACTIVE) None Note: [id number]-[id number] 5NON-REACTIVEResponsible Observer: HEP C ANTIBODY Hepatitis C Antibody [id number] 914.8305 ([employer]) HCV RNA Qualitative (ALEJANDRO) 0.01 (<1.00) None Note: HCV antibody was non-reactive. The re is no laboratoryevidence of HCV infection.In most cases, no further action is required. However,if recent HCV exposure is suspected, a test for HCV RNA(test code 67702) is suggested.For additional information please refer tohttp://education.TapIn.tv/faq/DWO01v9(This link is being provided for informational/educational purposes only.)THIS TEST WAS PERFORMED AT:[facility] [address]DANAY MCKAYesponsible Observer: SIG TO C/O SIGNAL TO CUTOFF [id number] 632.8964 ([employer]) NOTES See Note None Note: Patient Street Address: [address] [place] [address] City: [facility] State: [facility] Zip Code: [address] Phone Number: [phone] Reviewed by Vianey Reis MD on 08/15; All test results are final unless otherwise noted. Reported Physicians [facility] Ordered by Vianey Reis MD on 08/11/2020 Collected: 08/11/2020 Reported: 08/12/2020 15:21 Reported Physicians See Note None Note: Reported Physicians:Ordering: Vianey CaceresAttending: Vianey Reis Reviewed by Vianey Reis MD on 08/15; All test results are final unless otherwise noted. Urinalysis w/out microscopy Office Lab Ordered by Vianey Reis MD on 08/09/[address] [place] [address], [id number] Specimen Source: Urine Collected: 08/09/2020 Reporte d: [...] are final unless otherwise noted. Urine culture [facility] [facility] Ordered by Vianey Reis MD on 08/09/2020 Collected: 08/09/2020 Reported: 08/11/2020 06:55 Bacteria Ur Cult See Note None Note: ESCCOLESCHERICHIA [id number] SCHERICHIA COLI [place] count Greater than 100,000 None NOTES See Note None Note: @08/11/20 0656: Urine ID Charge ad ded. RFLXG = CHGURID. Reviewed by Vianey Reis MD on 08/15; All test results are final unless otherwise noted. Gram Negative Panel 4 [facility] Ordered by Vianey Reis MD [...] <2/38 Tetracycline [Susceptibility] by Minimum inhibitory concentration (AMRANDO) <4 Tobramycin [Susceptibility] by Minimum inhibitory concentration (ARMANDO) <4 cefTRIAXone [Susceptibility] by Minimum inhibitory concentration (ARMANDO) <1 levoFLOXacin [Susceptibility] by Minimum inhibitory concentration (ARMANDO) <2 RESISTANT Ampicillin [Susceptibility] by Minimum inhibitory concentration (ARMANDO) >16 Reviewed by Vianey Reis MD on 08/15; All test results are final unless otherwise noted. Reported Physicians [facility] Ordered by Vianey Reis MD on 08/09/2020 Collected: 08/09/2020 Reported: 08/11/2020 06:56 Reported Physicians See Note None Note: Reported Physicians:Ordering: Vianey CaceresAttending: Vianey Reis Reviewed by Vianey Reis MD on 08/15; All test results are final unless otherwise noted. BHCG, QUANTITATIVE [facility] Ordered by Vianey Reis MD on 07/05/2020 Collected: 07/05/2020 Reported: 07/05/2020 12:54 B-HCG [facility] 2874 MilliInternationalUnitsPerMilliLiter_[Arbitrary_Con (0-10) H (High) Note: @Instrument will autodiluteAPPROXI MATE GESTATION AGE APRROXIMATE HCG RANGE 0-1 WEEK 0 - 50 1-2 WEEKS 40 - 300 2-3 WEEKS 100 - 1,000 3-4 WEEKS 500 - 6,000 1-2 MONTHS 5,000 - 200,000 2-3 MONTHS 10,000 - 100,000 2ND TRIMESTER 3,000 - 50,000 3RD TRIMESTER 1,000 - 50,000Responsible Observer: BHCG,QUANT BHCG, QUANTITATIVE 600.5006 (G) Reviewed by Vianey Reis MD on 07/05; All test results are final unless otherwise noted. Reported Physicians [facility] Ordered by Vianey Reis MD on 07/05/2020 Collected: 07/05/2020 Reported: 07/05/2020 12:55 Reported Physicians See Note None Note: Reported Physicians:Ordering: Madhuri Caceresending: Miller Larkin To: Aubree Larkin Reviewed by Vianey Reis MD on 07/05; All test results are final unless otherwise noted. SURGICAL PATHOLOGY [facility] Ordered by Vianey Reis MD on 05/31/2020 Collected: 05/31/2020 Reported: 06/10/2020 06:59 Pathology studies See scanned report None Note: Responsible Observer: SURGICAL PAT H SURGICAL PATHOLOGY [phone] (A) NOTES See Note None Note: PATH SPEC #:: [id number] Reviewed by Vianey Reis MD on 06/11; All test results are final unless otherwise noted. Reported Physicians [facility] Ordered by Vianey Reis MD on 05/31/2020 Collected: 05/31/2020 Reported: 06/10/2020 06:59 Reported Physicians See Note None Note: Reported Physicians:Ordering: Madhuri Caceresending: Vianey Reis Reviewed by Vianey Reis MD on 06/11; All test results are final unless otherwise noted. Strep antigen throat [facility] Ordered by Aubree Larkin RPA on 04/02/2020 Collected: 04/02/2020 Reported: 04/03/2020 10:57 Strep Antigen throat Negative by antigen detection methods None NOTES See Note None Note: @04/02/20 1204: Throat strep sc ad ded. RFLXG = THSS. Reviewed by Aubree Larkin RPA on 04/04; All test results are final unless otherwise noted. Reported Physicians [facility] Ordered by Aubree Larkin RPA on 04/02/2020 Collected: 04/02/2020 Reported: 04/03/2020 10:58 Reported Physicians See Note None Note: Reported Physicians:Ordering: Melissa Chambersending: Lindsay Esquivel To: Vianey Reis Reviewed by Aubree Larkin RPA on 04/04; All test results are final unless otherwise noted. Respiratory Panel PCR [facility] Ordered by Aubree Larkin RPA on 04/02/2020 Collected: 04/02/2020 Reported: 04/02/2020 11:39 Resp path DNA+RNA Pnl Nph ALEJANDRO+non-probe See Note None Note: THIS RP PANEL TESTS FOR SA RS-CoV-2,(COVID-19)FilmArray Respiratory Panel is a Multiplexed NAAT-PCR testNORMAL VALUE FOR ALL 20 PATHOGENS IS "NOT DETECTED".The FilmArray RP panel detects Influenza A H1,H3 hor1084 H1 viruses,Influenza B virus, Respiratory syncytialvirus, Human [...] BY A NASOPH ARYNGEAL SWAB SPECIMEN.NOSNo Organisms [id number] Organisms Detected Reviewed by Aubree Larkin RPA on 04/04; All test results are final unless otherwise noted. Strep antigen throat [facility] Ordered by Aubree Larkin RPA on 04/02/2020 Collected: 04/02/2020 Reported: 04/02/2020 12:04 Strep Antigen throat Negative by antigen detection methods None NOTES See Note None Note: @04/02/20 1204: Throat strep sc ad ded. RFLXG = THSS. Reviewed by Aubree Larkin RPA on 04/04; All test results are final unless otherwise noted. Throat strep screen [facility] Ordered by Aubree Larkin [facility] on 04/02/2020 Collected: 04/02/2020 Reported: 04/03/2020 10:57 Throat culture strep No Beta Strep isolated None NOTES See Note None Note: @04/02/20 1204: Throat strep sc ad ded. RFLXG = THSS. Reviewed by Aubree Larkin [facility] on 04/04; All test results are final unless otherwise noted. Reported Physicians [facility] Ordered by Aubree Larkin [facility] on 04/02/2020 Collected: 04/02/2020 Reported: 04/03/2020 10:58 Reported Physicians See Note None Note: Reported Physicians:Ordering: Melissa Chambersending: Lindsay Esquivel To: Vianey Reis Reviewed by Aubree Larkin [facility] on 04/04; All test results are final unless otherwise noted. History of Present Illness History of Present Illness not supported for this document typeNo History of Present Illness Recorded Social History Description Last Updated In monogamous relationship 03/10/2020 Currently ; Rahul with one healthy child (Will) 03/10/2020 Occupation ; [employer] 03/10/2020 No consumption of alcohol 03/10/2020 No tobacco use 09/22/2009 Not using drugs 09/22/2009 Smoking Status Unknown Procedures and Surgical History Includes: Procedures from 08/18/2019 through 08/17/2020 Procedures Code Diagnosis Performing Provider Service Location Service Date NO CHARGE- Nurse visit- OB establish [facility] 11 weeks ge station of Vianey Reis MD [facility], [facility] 08/16/2020 Urinalysis w/o Microscopy 14037 Dysuria Vianey han MD [facility], [facility] 08/09/2020 no charge procedure NC Neoplasm of uncertai n behavior of skin, Encounter for removal of sutures Aubree Larkin RPA [facility], [facility] 06/07/2020 Excision Benign Lesion .5 cm or less (trunk, arms, legs) 1 1400 Neoplasm of uncertain behavior of skin Vianey Reis MD [facility], [facility] 05/31/2020 Removal, non biodegradable implant (NEXP LANON) (Distinct Seperate service-same day) 84327 Nexplanon surveillance ( implantable sub dermal contraceptive Vianey Reis MD [facility] 05/31/2020 Surgical History Last Updated Prior surgery , unresponsive to anesthesia 1 Medical History Includes: Medical History in patient's chart Description Last Updated No recent immunization for flu 07/10/2016 No previous hospitalizations , did have [place], '04, 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/22/2009 Family [...] injectable 1 05/22/2012 Left Arm Complete (Administered) [facility] Influenza, seasonal, injectable 2 03/10/2019 [facility] 1993 Complete (Reported) Patient IPV [...] 2 10/07/2018 Right Deltoid Complete ( Administered) [facility] Allergies Includes: Active, inactive, and resolved Allergies [...] - 12:00AM Active Encounters Includes: Encounters from 08/18/2019 through 08/17/2020 Encounter Provider Location Date Check-In Time Check-Out Time D iagnosis Obstetrics/ first visit Vianey Reis MD [facility], [facility] 08/16/2020 9:59AM 10:38AM nursing visit Vianey Reis MD [facility], [facility] 08/09/2020 8:08AM 8:19AM 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 Vianey Reis MD 07/04/2020 06/07/2020 8:58AM 06/07/2020 11:59PM Ambulatory Procedure Aubree Larkin [facility], [facility] 06/07/2020 11:26AM 11:55AM Dysplastic Nevus Ambulatory Procedure Vianey Reis MD [facility], [facility] 05/31/2020 9:55AM 10:48AM Visit For: Contracep tive Management, Dysplastic Nevus, Signs and Symptoms in Breast ANNUAL PE-followup /30 Aubree Larkin [facility], [facility] 03/10/2020 2:58PM 3:59PM Routine History and Physical Adult (18 - 64 Yrs), Skin Neoplasm Uncertain Behavior, Acrochordon followup Vianey Reis MD [facility], [facility] 11/16/2019 11:33AM 11:52AM Depression, Metab olic Disorders, Disorder of Mitochondrial Metabolism, Generalized Anxiety Disorder, Post-traumatic Stress Disorder followup Vianey Reis MD [facility], [facility] 10/12 1:24PM 1:51PM Depression, Metabolic Disorde rs, Disorder of Mitochondrial Metabolism Insurance Includes: Active Insurance Policies Plan Name Member ID Group # Subscriber Relationship Effective Da devante - [place] Plan-[employer] [id number] Nataliia Bustamante Self Advance Directives Includes: Current Advance DirectivesNo Advance Directives Recorded Health Concerns Includes: Active Health ConcernsNo Active Health Concerns Recorded Goals Includes: Active GoalsNo Active Goals Recorded Interventions Includes: Interventions for active GoalsNo Interventions Recorded Evaluations & Outcomes Includes: Evaluations & Outcomes for active GoalsNo Outcomes Recorded
--- OUTSIDE RECORDS SUMMARY | 2021-03-12 03:38 | CCD ---
Author Author [facility] Organization [facility] Address [address] [place] [address] Phone Care Team Providers Care Director Of Anesthesia Services Name Role Phone Yadira CHAVEZ, Behzad Unavailable Unavailable Jose Cruz CHAVEZ, Nellie Unavailable Unavailable Smiley CHAVEZ, Vianey Escobedo PP [phone] Reason for Referral No Reason for Referral [...] of pregnan cy 07/11/20 Vianey Reis MD Rads U/S - a. Ultrasound OB US- Initial (Pound to Rump, Dati ng & Viability) 9 weeks gestation of 07/18/20 Vianey Reis MD Outside Labs Urine Culture Dysuria 08/16/20 Vianey Kaplan [facility] Future Appointments Date Time Location Provider Obstetrics/ first visit 08/16/2020 10:00AM [facility], [facility] Vianey Reis MD Findings Encounter Date Education [...] them. She will start vitamin ANNUAL PE-followup exam with Aubree Larkin [facility] 03/10/2020 [...] with the daya ent. Will refer to Lead Web Application Developer for testing to see if this could [...] if concerned urgent visit with Deandra Beasley [facility] 07/10/2016 Patient informed of natural history of [...] if concerned sick visit with Aubree Larkin [facility] 06/21/2014 Ordered high fiber diet as she is ciro sharp and will see back in 12 months unless problems arise followup with Paco Lee MD 01/29/2013 Tylenol for discomfort or fever. Push fluids and rest. Call if persistent or high fever, increased work of breathing, persistent pain, if sxs not improving, or if concerned sick visit with Aung Johns [facility] 01/23/2012 Ordered an oropharynx culture for streptococcus group A beta hemolytic sick visit with Aung Johns [facility] 01/23/2012 Assessments Includes: Assessments for all patient encounters Findings Encounter Date Dysplastic nevus s/p removal, path pending Ambulatory Procedure with Aubree Larkin [facility] 06/07/2020 Dysplastic nevus [Neoplasm of uncertain behavior of sk in] Ambulatory Procedure with Vianey Reis MD 05/31/2020 Signs and symptoms in breast nipple tag removed today [Other signs and symptoms in breast] Ambulatory Procedure with Vianey Reis MD 05/31/19 21 Visit for: contraceptive management Nexplanon removed today Ambulatory Procedure with Vianey Reis MD 05/31/2020 Acrochordon ANNUAL PE-followup exam/30 with Aubree Larkin [facility] 03/10/2020 Routine adult history and physical (18 - 64 yrs) ANNUA L PE-followup exam/30 with Aubree Larkin [facility] 03/10/2020 Skin neoplasm of uncertain behavior ANNUAL PE-followup exam/30 with Aubree Larkin [facility] 03/10/2020 Disorder of mitochondrial metabolism followup with Vianye Reis MD 11/16/2019 Generalized anxiety disorder followup with Vianey Reis MD 11/16/2019 Metabolic disorders [id number] with expres collin of *6 and *41. Has appointment scheduled with [facility] December 06 [Deficiency of multiple nutrient elements] followup with Vianey Reis MD 11/16/2019 depression continue xanax pr n at this time, follow-up with new psychiatrist and [facility]. Continue counseling. Counseling provided today [ depression] followup with Vianey Reis MD 11/16/2019 Post-traumatic stress disorder followup with Vianey han MD 11/16/2019 Disorder of mitochondrial metabolism followup with Vianey Reis MD 10/13/2019 Metabolic disorders [id number] with expres collin of *6 and *41. [...] improved. Continue therapy with Sanam Matthew and Husseinonopin HS [ depression] Post Visit with Vianey [...] pain has improved. Therapy scheduled with Sanam Castro. Continue Klonopin BID [ depression] Post Visit [...] migraine (without aura) followup with Aubree Larkin [facility] 11/09/2016 Irritable bowel syndrome followup with Aubree Larkin [facility] 0 11/09/2016 Irritable bowel syndrome sick visit with Aubree Larkin [facility] 08/21/2016 Malaise urgent visit with Deandra Beasley [facility] 07/10 Pharyngitis urgent visit with Deandra Beasley [facility] 07/10 Presyncope syndrome urgent visit with Deandra Beasley [facility] 07/10 Classic migraine with aura with [...] (without aura) sick visit with Aubree lópez [facility] 10/04/2015 Influenza sick visit with Aubree Larkin [facility] 06/2014 Irritable bowel syndrome followup with Paco ramires MD 01/29/2013 Working diagnosis of irritable bowel syndrome sick vis it with Aung Johns [facility] 01/12/2013 Possible irritable bowel syndrome sick visit with Paco Lee MD 12/18/2012 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 Follow up at [facility] this spring new patient with Rose Mullins [...] historical Medications Current Medications (continue as prescribed) Nitrofurantoin Monohyd Macro 100 MG Oral Capsule 08/09/2020 - 08/16/2020 Provider: Vianey Reis MD Diagnosis: 1 PO BID ALPRAZolam 0.5 MG Oral Tablet 10/13/2019 Provider: Vianey Reis MD Diagnosis: as directed 1/2 tab or 1 tab PO BID prn tremor/anxiety MDD: 2 Reference #: [id number] Past Medications on file ALPRAZolam 0.5 MG Oral Tablet 10/13/2019 - 10/13/2019 Provid er: Vianey Reis MD Diagnosis: as directed 1/2 tab or 1 tab PO BID prn tremor/anxiety MDD: 2 Reference #: [id number] ALPRAZolam Powder 10/10/2019 - 10/13/2019 Provider: Yadiel Costello Diagnosis: ALPRAZolam 0.5 MG Oral Tablet 10/10/2019 - 10/13/2019 Provid er: Yadiel Costello Diagnosis: Nefazodone HCl 100 MG Oral Tablet 09/21/2019 - 10/13/2019 Pr ovider: Diagnosis: LORazepam 1MG Oral Tablet 05/15/2019 - 10/13/2019 Provider: Vianey Reis MD Diagnosis: 1 PO QD prn anxiety MDD: 1 Reference #: [id number] Cephalexin 500MG Oral Capsule 05/15/2019 - 03/10/2020 Provid er: Vianey Reis MD Diagnosis: 1 PO BID LORazepam 1MG Oral Tablet 04/17/2019 - 10/13/2019 Provider: Francisco Javier Basurto MD Diagnosis: clonazePAM 0.5MG Oral Tablet 04/13/2019 - 10/13/2019 Provide r: Vianey Reis MD Diagnosis: 1 PO BID MDD: 2 Reference #: [id number] Nexplanon 68MG Subcutaneous Implant 03/06/2019 - 05/31/2020 Provider: Vianey Reis MD Diagnosis: as directed one subcutaneous implant Reference #: [id number] Clindamycin HCl 300MG Oral Capsule 01/14/2019 - 02/06/2019 P rovider: Vianey Reis MD Diagnosis: Cephalexin 500MG Oral Capsule 01/12/2019 - 01/16/2019 Provid er: Vianey Reis MD Diagnosis: 1 PO QID clonazePAM 0.5MG Oral Tablet 01/09/2019 - 04/13/2019 Provide r: Vianey Reis MD Diagnosis: 1 PO BID MDD: 2 Reference #: [id number] Sertraline HCl 50MG Oral Tablet 01/05/2019 - 01/16/2019 Prov ider: Vianey Reis MD Diagnosis: clonazePAM 0.5MG Oral Tablet 01/05/2019 - 01/09/2019 Provide r: Vianey Reis MD Diagnosis: oxyCODONE HCl 5MG Oral Capsule 09/02/2018 - 09/07/2018 Provi libby: Vianey Reis MD Diagnosis: 1 every 4 - 6 hours as needed prn headache MDD: 2 Reference #: [id number] Cephalexin 250MG Oral Capsule 07/08/2018 - 01/04/2019 Provid er: Aubree Larkin R[facility] Diagnosis: 1 PO QD Jktwfuhpim-YWJJ-Bwuvllly 50-325-40MG Oral Capsule 06/18/2018 - 03/10/2020 Provider: [...] Influenza-NOS w/wo o ther respiratory manifestations Zovia E (28) 1-35 MG-MCG OR TABS 05/17/2014 - [...] 04/17/2012 Provider: Aung Johns [facility] Diagnosis: Pharyngitis Maxalt-SWEEP MOLDER 10 MG OR TBDP 09/22/2009 - 02/07/2016 Provider: Rose Mullins MD Diagnosis: 1 tab at onset of headache Medications Administered Includes: Administered Medications in patient's chartNo Administered Medications Recorded Vital Signs Includes: Vital Signs from 08/10/2019 through 08/09/2020 Vital Name 08/09/2020 08:20A 06/07/2020 11:37A 05/31/2020 [...] Rate (breaths/min) 18 Results Includes: Results from 08/10/2019 through 08/09/2020 Urinalysis w/out microscopy Office Lab Ordered by Vianey Reis MD on 08/09/2020 [address] [place], [address] Specimen Source: Urine Collected: 08/09/2020 Reporte d: [...] are final unless otherwise noted. BHCG, QUANTITATIVE [facility] Lab Ordered by Vianey Reis MD on 07/05/2020 Collected: 07/05/2020 Reported: 07/05/2020 12:54 B[facility] 2874 MilliInternationalUnitsPerMilliLiter_[Arbitrary_Con (0-10) H (High) Note: @Instrument [...] are final unless otherwise noted. Reported Physicians [facility] Lab Ordered by Vianey Reis MD on 07/05/2020 Collected: 07/05/2020 Reported: 07/05/2020 12:55 Reported Physicians See Note None Note: Reported Physicians:Ordering: Vianey CaceresAttending: Aubree LarkinCopy To: Aubree Larkin Reviewed by Vianey Reis MD on 07/05; All test results are final unless otherwise noted. SURGICAL PATHOLOGY [facility] Lab Ordered by Vianey Reis MD on 05/31/2020 Collected: 05/31/2020 Reported: 06/10/2020 06:59 Pathology studies See scanned report None Note: Responsible Observer: SURGICAL PAT H SURGICAL PATHOLOGY [phone] (A) NOTES See Note None Note: PATH SPEC #:: [id number] Reviewed by Vianey Reis MD on 06/11; All test results are final unless otherwise noted. Reported Physicians [facility] Lab Ordered by Vianey Reis MD on 05/31/2020 Collected: 05/31/2020 Reported: 06/10/2020 06:59 Reported Physicians See Note None Note: Reported Physicians:Ordering: Vianey CaceresAttending: Vianey Reis Reviewed by Vianey Reis MD on 06/11; All test results are final unless otherwise noted. Respiratory Panel PCR [facility] Lab Ordered by Aubree Larkin RPA on 04/02/2020 Collected: 04/02/2020 Reported: 04/02/2020 11:39 Resp path DNA+RNA Pnl Nph ALEJANDRO+non-probe See Note None Note: THIS RP PANEL TESTS FOR SA RS-CoV-2,(COVID-19)FilmArray Respiratory Panel is a Multiplexed NAAT-PCR testNORMAL VALUE FOR ALL 20 PATHOGENS IS "NOT DETECTED".The FilmArray RP panel detects Influenza A H1,H3 mnd3205 H1 viruses,Influenza B virus, Respiratory syncytialvirus, Human [...] BY A NASOPH ARYNGEAL SWAB SPECIMEN.NOSNo Organisms [id number] Organisms Detected Reviewed by Aubree Larkin RPA on 04/04; All test results are final unless otherwise noted. Strep antigen throat [facility] Lab Ordered by [facility] on 04/02/2020 Collected: 04/02/2020 Reported: 04/02/2020 12:04 Strep Antigen throat Negative by antigen detection methods None NOTES See Note None Note: @04/02/20 1204: Throat strep sc ad ded. RFLXG = THSS. Reviewed by [facility] on 04/04; All test results are final unless otherwise noted. Throat strep screen [facility] Lab Ordered by [facility] on 04/02/2020 Collected: 04/02/2020 Reported: 04/03/2020 10:57 Throat culture strep No Beta Strep isolated None NOTES See Note None Note: @04/02/20 1204: Throat strep sc ad ded. RFLXG = THSS. Reviewed by [facility] on 04/04; All test results are final unless otherwise noted. Reported Physicians [facility] Lab Ordered by [facility] on 04/02/2020 Collected: 04/02/2020 Reported: 04/03/2020 10:58 Reported Physicians See Note None Note: Reported Physicians:Ordering: Melissa Chambersending: Lindsay Esquivel To: Vianey Reis Reviewed by [facility] on 04/04; All test results are final unless otherwise noted. Strep antigen throat [facility] Lab Ordered by [facility] on 04/02/2020 Collected: 04/02/2020 Reported: 04/03/2020 10:57 Strep Antigen throat Negative by antigen detection methods None NOTES See Note None Note: @04/02/20 1204: Throat strep sc ad ded. RFLXG = THSS. Reviewed by [facility] on 04/04; All test results are final unless otherwise noted. Reported Physicians [facility] Lab Ordered by [facility] on 04/02/2020 Collected: 04/02/2020 Reported: 04/03/2020 10:58 Reported Physicians See Note None Note: Reported Physicians:Ordering: Melissa Chambersending: Lindsay Esquivel To: Vianey Reis Reviewed by [facility] on 04/04; All test results are final unless otherwise noted. History of Present Illness History of Present Illness not supported for this document typeNo History of Present Illness Recorded Social History Description Last Updated In monogamous relationship 03/10/2020 Currently ; Rahul with one healthy child (Will) 03/10/2020 Occupation ; [employer] 03/10/2020 No consumption of alcohol 03/10/2020 No tobacco use 09/22/2009 Not using drugs 09/22/2009 Smoking Status Unknown Procedures and Surgical History Includes: Procedures from 08/10/2019 through 08/09/2020 Procedures Code Diagnosis Performing Provider Service Location Service Date no charge procedure NC Neoplasm of uncertai n behavior of skin, Encounter for removal of sutures Aubree Larkin RPA [facility], [facility] 06/07/2020 Excision Benign Lesion .5 cm or less (trunk, arms, legs) 1 1400 Neoplasm of uncertain behavior of skin Vianey Reis MD [facility], [facility] 05/31/2020 Removal, non biodegradable implant (NEXP LANON) (Distinct Seperate service-same day) [id number] Nexplanon surveillance ( implantable sub dermal contraceptive Vianey Reis MD [facility], [facility] 05/31/2020 Surgical History Last Updated Prior surgery , unresponsive to anesthesia 1 Medical History Includes: Medical History in patient's chart Description Last Updated No recent immunization for flu 07/10/2016 No previous hospitalizations , did have [place], '04, 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/22/2009 Family [...] injectable 1 05/22/2012 Left Arm Complete (Administered) [facility] Influenza, seasonal, injectable 2 03/10/2019 Left Deltoid Complete (Administered) [facility] IPV 1 1993 Complete (Reported) [...] 2 10/07/2018 Right Deltoid Complete ( Administered) [facility] Allergies Includes: Active, inactive, and resolved Allergies [...] (Sulfamethoxazole-Trimethoprim)][Previous Allergy Description Known As: Bactrim (Sulfamethoxazole-Trimethoprim)] Imitrex Intolerance nausea 02/07/2016 - 12:00AM Act luba Amoxicillin Allergy Skin Rashes, Hives 07/10/2016 - 12:00AM Active Encounters Includes: Encounters from 08/10/2019 through 08/09/2020 Encounter Provider Location Date Check-In Time Check-Out Time D iagnosis nursing visit Vianey Reis MD [facility], [facility] 08/09/2020 8:08AM 8:19AM 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 Vianey Reis MD 07/04/2020 06/07/2020 8:58AM 06/07/2020 11:59PM Ambulatory Procedure Aubree Larkin [facility], [facility] 06/07/2020 11:26AM 11:55AM Dysplastic Nevus Ambulatory Procedure Vianey Reis MD [facility], [facility] 05/31/2020 9:55AM 10:48AM Visit For: Contracep tive Management, Dysplastic Nevus, Signs and Symptoms in Breast ANNUAL PE-followup exam Aubree Larkin [facility], [facility] 03/10/2020 2:58PM 3:59PM Routine History and Physical Adult (18 - 64 Yrs), Skin Neoplasm Uncertain Behavior, Acrochordon followup Vianey eRis MD [facility], P 0 11/16/2019 11:33AM 11:52AM Depression, Metab olic Disorders, Disorder of Mitochondrial Metabolism, Generalized Anxiety Disorder, Post-traumatic Stress Disorder followup Vianey Reis MD [facility], [facility] 10/12 1:24PM 1:51PM Depression, Metabolic Disorde rs, Disorder of Mitochondrial Metabolism Insurance Includes: Active Insurance Policies Plan Name Member ID Group # Subscriber Relationship Effective Da devante 1 - [place] [employer] [id number] Nataliia Bustamante Self Advance Directives Includes: Current Advance DirectivesNo Advance Directives Recorded Health Concerns Includes: Active Health ConcernsNo Active Health Concerns Recorded Goals Includes: Active GoalsNo Active Goals Recorded Interventions Includes: Interventions for active GoalsNo Interventions Recorded Evaluations & Outcomes Includes: Evaluations & Outcomes for active GoalsNo Outcomes Recorded
--- OUTSIDE RECORDS SUMMARY | 2021-03-12 03:38 | CCD ---
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 Active confirmed 855032368479776 Problem Supervision of other normal Z34.80 Ac tive confirm [id number] ALLERGIES No Known Allergies ENCOUNTERS from 1993 to 2021-02-28 Encounter Location Date Provider Diagnosis [facility] [address] [place] [address] [place] [address] Feb, Oj Mckeon Previous de livery, antepartum [...] FOR REFERRAL No Information VITAL SIGNS Weight 203.8 lbs 11 Feb, 2021 Weight-kg 92.44 kg 11 Oct, 2021 Height 68 in Feb, BMI 30.988 kg/m2 Feb, Blood pressure systolic 126 mm Hg Feb, Blood pressure diastolic 82 mm Hg Feb, MEDICATIONS Medication SIG (Take, Route, Frequency, Duration) Notes Start Da te End Date Status Cephalexin 250 MG 1 capsule Orally every 6 hrs Active 27-1 MG 1 tablet Orally Once a day Active Cephalexin Not-Taking PROCEDURES No Information RESULTS No Results REASON FOR VISIT 1 wk pn MEDICAL (GENERAL) HISTORY Type Description Date Medical History factor V leiden Medical History migraine headache Medical History Atypical gene status-difficulty processi ng meds Medical History Chronic kidney infections Surgical History 2019 Surgical History [place] teeth Hospitalization History /hematoma Hospitalization History Kidney infection Goals Section No Information Health Concerns No Information MEDICAL EQUIPMENT No Information MENTAL STATUS No Information FUNCTIONAL STATUS No Information ASSESSMENTS Encounter Date Diagnosis Assessment Notes Treatment Notes Treatm ent Clinical Notes Feb, Previous delivery, antepartum (ICD-10 - O34.219) PLAN OF TREATMENT Next Appt Details 1 Week Reason: Provider Name:Oj Mckeon, 2021-03-06 1 0:40:00 AM, [address] [place] [address], , [place], [address], Provider Name:Oj Mckeon, 2021-03-13 1 0:40:00 AM, [address] [place] [address], , [place], [address], Insurance Providers Payer Name Payer Address Payer Phone Insured Name Patient Relati onship to Insured Coverage Start Date Coverage End Date [facility] [employer] [facility] [address] [facility] [address] [address] KAYDEN CUMMINGS self
--- OUTSIDE RECORDS SUMMARY | 2021-03-12 03:38 | CCD ---
Author Author [facility] Organization [facility] Address [address] [facility] [address] [place] [address] Phone Care Team Providers Care Combat Systems Operator Mine Warfare Name Role Phone Yadira CHAVEZ, Behzad Unavailable Unavailable Jose Cruz CHAVEZ, Nellie Unavailable Unavailable Smiley CHAVEZ, Vianey Escobedo PP [phone] Reason for Referral No Reason for Referral [...] Metabolic Disorders 10/13/2019 - 12:00AM Aubree lópez [facility] Active Note: CYP- P2D6 with express [...] Order Diagnosis Results Due Ordering Provi libby Rads U/S - a. Ultrasound OB US-20wk (Anatomy) state, in cidental 10/27/20 Vianey Reis MD Care Programs [facility] Future Appointments Date Time Location Provider REVISIT- Routine (OB) Visit 10/11/2020 11:45AM [facility], [facility] Vianey Reis MD Findings Encounter Date [...] start vitamin ANNUAL PE-followup with Aubree Larkin RPA 03/10/2020 Discussed treatment plan with the [facility] ent and her . We discussed her genetic testing at length with >50% of visit spent in counseling and discussion. I would like to refer her for genetic counseling and also to psychiatry. Will continue klonopin for now, but needs a better maintenance option for her anxiety. See back with questions or concerns sick visit with Aubree Larkin [facility] 04/21/2019 Discussed treatment plan with the [facility] ent. Will refer to [facility] for testing to see if this could be correlated with headaches. In regards to skin lesions, ABCDE were reviewed today of concerning lesions. If area to left upper arm returns will consider referral for biopsy. Reviewed importance of sunscreen sick visit with Aubree Larkin RPA 08/06/2017 Engaged in a lengthy conversation with [...] issues arise sick visit with Aubree Larkin [facility] 08/21/2016 Tylenol for discomfort or fever. Push fluids and rest. Saline nasal spray to thin secretions and encourage drainage. Call if persistent or high fever, increased work of breathing, persistent pain, if sxs not improving, or if concerned urgent visit with Deandra Beasley [facility] 07/10/2016 Patient informed of natural history [...] or concerns sick visit with Aubree Larkin [facility] 10/04/2015 Tylenol for discomfort or fever. Push fluids and rest. Advised to call if persistent or high fever, increased work of breathing, persistent pain, if sxs not improving, or if concerned sick visit with Aubree Larkin [facility] 06/21/2014 Ordered high fiber diet as she is gelaedwinmelani mir sharp and will see back in 12 months unless problems arise followup with Paco Lee MD 01/29/2013 Tylenol for discomfort or fever. Push fluids and rest. 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 sick visit with Aung Johns [facility] 01/23/2012 Assessments Includes: Assessments for all patient encounters Findings Encounter Date Dysplastic nevus s/p removal, path pending Ambulatory Procedure with Aubree Larkin [facility] 06/07/2020 Dysplastic nevus [Neoplasm of uncertain behavior of sk in] Ambulatory Procedure with Vianey Reis MD 05/31/2020 Signs and symptoms in breast nipple tag removed today [Other signs and symptoms in breast] Ambulatory Procedure with Vianey Reis MD 05/31/19 21 Visit for: contraceptive management Nexplanon removed today Ambulatory Procedure with Vianey Reis MD 05/31/2020 Acrochordon ANNUAL PE-followup exam/30 with Aubree Larkin [facility] 03/10/2020 Routine adult history and physical (18 - 64 yrs) ANNUA L PE-followup exam/30 with Aubree Larkin [facility] 03/10/2020 Skin neoplasm of uncertain behavior ANNUAL PE-followup exam/30 with Aubree Larkin [facility] 03/10/2020 Disorder of mitochondrial metabolism followup with Vianey Reis MD 11/16/2019 Generalized anxiety disorder followup with Vianey Reis MD 11/16/2019 Metabolic disorders [id number] with expres collin of *6 and *41. 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 Continue counseling. Counseling provided today [ depression] followup with Vianey Reis MD 11/16/2019 Post-traumatic stress disorder followup with Vianey han MD 11/16/2019 Disorder of mitochondrial metabolism followup with Vianey Reis MD 10/13/2019 Metabolic disorders [id number] with expres collin of *6 and *41. 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 Continue therapy with Sanam Castro and Husseinonopin BID. Due to the active bleeding noted [...] upper arm sick visit with Julieth Larkin [facility] 08/06/2017 Allergic rhinitis sick visit with Aubree Larkin [facility] 07/19 Common migraine (without aura) with intractable migrai ne sick visit with Aubree Larkin [facility] 08/06/2017 Acute upper respiratory infection Suspe [...] of cough urgent visit with Deandra Beasley [facility] 02/04 Common migraine (without aura) followup with Aubree Larkin [facility] 11/09/2016 Irritable bowel syndrome followup with Aubree Larkin [facility] 0 11/09/2016 Irritable bowel syndrome sick visit with Aubree Larkin [facility] 08/21/2016 Malaise urgent visit with Deandra Beasley RPA 07/10 Pharyngitis urgent visit with Deandra Beasley [facility] 07/10 Presyncope syndrome urgent visit with Deandra Beaslye [facility] 07/10 Classic migraine with aura with [...] (without aura) sick visit with Aubree lópez [facility] 10/04/2015 Influenza sick visit with Aubree Larkin [facility] 06/2014 Irritable bowel syndrome followup with Paco ramires MD 01/29/2013 Working diagnosis of irritable bowel syndrome sick vis it with Aung Johns [facility] 01/12/2013 Possible irritable bowel syndrome sick visit with Paco Lee MD 12/18/2012 Possible lactase deficiency syndrome sick visit with Paco Lee MD 12/18/2012 Migraine headache followup with Aung Johns [facility] 05/22 Migraine headache followup with Aung Johns [facility] 04/17 Working diagnosis of basilar migraine headache sick vi sit with Aung Johns [facility] 03/14/2012 Acute viral pharyngitis sick visit with Aung Johns [facility] 01/23/2012 Acne , recently started on some otc products, if doesn 't help refer to Yessy Michaels new patient with Rose Mullins MD 09/22/2009 Migraine headache , will try rescue med for acute migraine syndrome. Follow up at [facility] this spring new patient with Rose Mullins [...] BID prn tremor/anxiety MDD: 2 Reference #: [id number] Past Medications on file Cephalexin 500 MG [...] BID prn tremor/anxiety MDD: 2 Reference #: [id number] ALPRAZolam 0.5 MG Oral Tablet 10/10/2019 - 10/13/2019 Provid er: Yadiel Costello Diagnosis: ALPRAZolam Powder 10/10/2019 - 10/13/2019 Provider: Yadiel Costello Diagnosis: Nefazodone HCl 100 MG Oral Tablet 09/21/2019 - 10/13/2019 Pr ovider: Diagnosis: LORazepam 1MG Oral Tablet 05/15/2019 - 10/13/2019 Provider: Vianey Reis MD Diagnosis: 1 PO QD prn anxiety MDD: 1 Reference #: [id number] Cephalexin 500MG Oral Capsule 05/15/2019 - 03/10/2020 Provid er: Vianey Reis MD Diagnosis: 1 PO BID LORazepam 1MG Oral Tablet 04/17/2019 - 10/13/2019 Provider: Francisco Javier Basurto MD Diagnosis: clonazePAM 0.5MG Oral Tablet 04/13/2019 - 10/13/2019 Provide r: Vianey Reis MD Diagnosis: 1 PO BID MDD: 2 Reference #: [id number] Nexplanon 68MG Subcutaneous Implant 03/06/2019 - 05/31/2020 Provider: Vianey Reis MD Diagnosis: as directed one subcutaneous implant Reference #: [id number] Clindamycin HCl 300MG Oral Capsule 01/14/2019 - 02/06/2019 P rovider: Vianey Reis MD Diagnosis: Cephalexin 500MG Oral Capsule 01/12/2019 - 01/16/2019 Provid er: Vianey Ries MD Diagnosis: 1 PO QID clonazePAM 0.5MG Oral Tablet 01/09/2019 - 04/13/2019 Provide r: Vianey Reis MD Diagnosis: 1 PO BID MDD: 2 Reference #: [id number] Sertraline HCl 50MG Oral Tablet 01/05/2019 - 01/16/2019 Prov ider: Vianey Reis MD Diagnosis: clonazePAM 0.5MG Oral Tablet 01/05/2019 - 01/09/2019 Provide r: Vianey Reis MD Diagnosis: oxyCODONE HCl 5MG Oral Capsule 09/02/2018 - 09/07/2018 Provi libby: Vianey Reis MD Diagnosis: 1 every 4 - 6 hours as needed prn headache MDD: 2 Reference #: [id number] Cephalexin 250MG Oral Capsule 07/08/2018 - 01/04/2019 Provid er: Aubree Larkin RPA Diagnosis: 1 PO QD Bkrjcxkxzx-EQQD-Hncgzyjr 50-325-40MG Oral Capsule 06/18/2018 - 03/10/2020 Provider: [...] Capsule 01/26/2017 - 04/18/2017 Provider: Fabiana Dey GENERAL OFFICE ASSISTANT Diagnosis: Azithromycin Powder 01/26/2017 - 04/18/2017 Provider: Fabiana Dey GENERAL OFFICE ASSISTANT Diagnosis: Cefdinir 125 MG/5ML Suspension Reconstituted 01/22/2017 [...] Influenza-NOS w/wo o ther respiratory manifestations Zovia 35E (28) 1-35 MG-MCG OR TABS 05/17/2014 - [...] TABS 03/14/2012 - 04/17/2012 Provide r: Aung Andreas RPA Diagnosis: MIGRAINE HEADACHE WI TH AURA predniSONE 20 MG OR TABS 01/23/2012 - 04/17/2012 Provider: Aung Johns RPA Diagnosis: Pharyngitis Maxalt-SCIENTIFIC DIVER 10 MG OR TBDP 09/22/2009 - 02/07/2016 Provider: Rose Mullins MD Diagnosis: 1 tab at onset of headache Medications Administered Includes: Administered Medications in patient's chartNo Administered Medications Recorded Vital Signs Includes: Vital Signs from 09/14/2019 through 09/13/2020 Vital Name 09/13/2020 10:57A 08/16/2020 10:07A 08/09/2020 08:20A 06/07/2020 11:37A 05/31/2020 10:13A Blood Pressure Sitting L 110/70 BP Cuff Size Large Large Pulse Rate-Sitting (bpm) 80 68 72 100 Respiration Rate (breaths/min) 20 20 22 18 Height (in) 68 68 68 68 68 Weight (lb) 185 186.125 191 Body Mass Index (kg/m2) 28.1 28.3 2 9.0 Body Surface Area (m2) 1.98 1.98 2. 00 Blood Pressure Sitting R 114/70 Blood Pressure Sitting (mmHg) 128/64 136/74 Temp-Oral (F) 98.4 Oxygen Saturation (%) 98 Vital Name 03/10/2020 03:00P 11/16/2019 11:38A 10/13/2019 01:30P Pulse Rate-Sitting (bpm) 86 78 76 Respiration Rate (breaths/min) 20 20 18 Height (in) 68 Weight (lb) 188 189 Body Mass Index (kg/m2) 28.6 Body Surface Area (m2) 1.99 Blood Pressure Sitting (mmHg) 108/72 120/80 96/60 Results Includes: Results from 09/14/2019 through 09/13/[address]/NG RT-PCR [facility] Ordered by Vianey Reis MD on 08/16/2020 Collected: 08/16/2020 Reported: 08/16/2020 17:[address]/NG RT-PCR See Note None Note: CT/NG IS A QUALITATIVE IN VITRO RE AL-TIME PCR TEST FORDETECTION OF CHLAMYDIA TRACHOMATIS (CT) AND NEISSERIAGONORRHOEAE (NG)NORMAL VALUE FOR CT/NG IS " NO ORGANISMS DETECTED "06587-4M trach DNA Vag Ql ALEJANDRO+probeLNCHLAMNC. trachomatis NOT [id number]. trachomatis NOT [id number] gonorrhoea rRNA Vag Ql ALEJANDRO+probeLNNEIGNN.gonorrhoeae NOT [id number].gonorrhoeae NOT DETECTED Reviewed by Vianey Reis MD on 08/17; All test results are final unless otherwise noted. Reported Physicians [facility] Ordered by Vianey Reis MD on 08/16/2020 Collected: 08/16/2020 Reported: 08/16/2020 17:40 Reported Physicians See Note None Note: Reported Physicians:Ordering: Vianey CaceresAttending: Vianey Reis Reviewed by Vianey Reis MD on 08/17; All test results are final unless otherwise noted. HPVI [facility] Ordered by Vianey Reis MD on 08/16/2020 Collected: 08/16/2020 Reported: 08/24/2020 07:53 Thin Prep Vag See Note None Note: See scanned reportSee scanned repo rtLSee scanned reportResponsible Observer: TP w/HPV if ASC Thinprep w/HPV if ASCUS 805.1454 (LCI) NOTES See Note None Note: [id number] Technique: BRU SH-SPATULALAST MENSTRUAL PERIOD: [id number] CYTOLOGY: NEGATIVEBody Site: CERVIX Reviewed by Vianey Reis MD on 08/24; All test results are final unless otherwise noted. Reported Physicians [facility] Ordered by Vianey Reis MD on 08/16/2020 Collected: 08/16/2020 Reported: 08/24/2020 07:53 Reported Physicians See Note None Note: Reported Physicians:Ordering: Vianey CaceresAttending: Vianey Reis Reviewed by Vianey Reis MD on 08/24; All test results are final unless otherwise noted. Urine culture [facility] Ordered by Vainey Reis MD on 08/11/2020 Collected: 08/11/2020 Reported: 08/12/2020 13:00 Urine culture result See Note None Note: 25,000 CFU/MLStaph spp. coag negNo rmal Commensal FloraProbable contaminants no senst done Reviewed by Vianey Reis MD on 08/16; All test results are final unless otherwise noted. MEDMATCH [facility] Ordered by Vianey Reis MD on 08/11/2020 Collected: 08/11/2020 Reported: 08/15/2020 15:45 MEDMATCH See scanned report None Note: Responsible Observer: MEDMATCH MED MATCH [id number] ([email or web address]) Reviewed by Vianey Reis MD on 08/16; All test results are final unless otherwise noted. ADD ON MICROSCOPIC [facility] Ordered by Vianey Reis MD on 08/11/2020 Collected: 08/11/2020 Reported: 08/11/2020 12:22 ADD ON MICROSCOPIC See Note (0-5) None Note: NOTES OTHER/NOT INTERPRETED Bacteria UrnS Ql Micro MODERATE AMOUNT Bacteria UrnS Ql Micro MODERATE AMOUNT Bacteria UrnS Ql Micro L Bacteria UrnS Ql Micro Bacteria UrnS Ql Micro Bacteria UrnS Ql Micro Bacteria UrnS Ql Micro [id number] Bacteria UrnS Ql Micro Bacteria UrnS Ql [...] are final unless otherwise noted. Reported Physicians [facility] Ordered by Vianey Reis MD on 08/11/2020 Collected: 08/11/2020 Reported: 08/11/2020 12:23 Reported Physicians See Note None Note: Reported Physicians:Ordering: Vianey CaceresAttending: Vianey Reis Reviewed by Vianey Reis MD on 08/15; All test results are final unless otherwise noted. URINALYSIS [facility] Ordered by Vianey Reis MD on 08/11/2020 Collected: 08/11/2020 Reported: 08/11/2020 12:22 Urobilinogen Ur Ql See Note (0.2-1 EU/dl) None Note: 0.2 EU/dl0.2 EU/[id number] E U/dlResponsible Observer: UROBILINOGEN UROBILINOGEN 300.4500 (C) RBC # Ur Strip NEGATIVE (NEGATIVE) None Note: Responsible Observer: BLOOD BLOOD 300.4650 (C) Prot Ur Ql Strip See Note (NEGATIVE) None Note: [id number] EResponsible Observer: PROTEIN PROTEIN 300.3750 (C) Ketones Ur Ql Strip See Note (NEGATIVE) None Note: [id number] EResponsible Observer: KETONE KETONE 300.3900 (C) Bilirub Ur Ql Strip.auto See Note (NEGATIVE) None Note: [id number] EResponsible Observer: BILIRUBIN BILIRUBIN 300.4550 (C) Glucose Ur Strip.auto-mCnc NEGATIVE (NEGATIVE) None Note: Responsible Observer: GLUCOSE GLUC OSE 300.3850 (C) Appearance Ur See Note (CLEAR) A (Abnormal) Note: CLOUDYCLOUDYLCLOUDYResponsible Obs erver: APPEARANCE APPEARANCE 300.3400 (A) Color Ur See Note None Note: YELLOWYELLOWLYELLOWResponsible Obs erver: COLOR COLOR 300.3300 (A) Leukocyte esterase Ur Ql Strip See Note (NEGATIVE) None Note: [id number]@DO MICR O!!!!Responsible Observer: LEUKOCYTES LEUKOCYTES 300.3575 (C) Nitrite Ur Ql Strip See Note (NEGATIVE) None Note: [id number] EResponsible Observer: NITRITE NITRITE 300.3650 (B) pH [...] are final unless otherwise noted. Reported Physicians [facility] Ordered by Vianey Reis MD on 08/11/2020 Collected: 08/11/2020 Reported: 08/15/2020 15:45 Reported Physicians See Note None Note: Reported Physicians:Ordering: Vianey CaceresAttending: Vianey Reis Reviewed by Vianey Reis MD on 08/16; All test results are final unless otherwise noted. MANUAL DIFF, PNP [facility] Ordered by Vianey Reis MD [...] final unless otherwise noted. Varicella-Zoster IgG Antibody [facility] Ordered by Vianey Reis MD [...] Antibody Immunity Screen, ACIF.THIS TEST WAS PERFORMED AT:[facility] [address]FJWALP ME RATI,MDResponsible Observer: VARICELLA IGG Varicella-Zoster IgG Antibody [id number] 821.8389 ([email or web address]) NOTES See Note None Note: Patient Street Address: [address] [place] [address] City: [facility] State: [facility] Zip Code: [address] Phone Number: [phone] Reviewed by Vianey Reis MD on 08/15; All test results are final unless otherwise noted. Reported Physicians [facility] Ordered by Vianey Reis MD on 08/11/2020 Collected: 08/11/2020 Reported: 08/12/2020 15:21 Reported Physicians See Note None Note: Reported Physicians:Ordering: Vianey CaceresAttending: Vianey Reis Reviewed by Vianey Reis MD on 08/15; All test results are final unless otherwise noted. CBC [facility] Ordered by Vianey Reis MD [...] Auto See Note (0-2) N (Normal) Note: [id number] Ob server developer: IG% IG% 100.1375 (B) Hct VFr [...] test results are final unless otherwise noted. [facility] Ordered by Vianey Reis MD on 08/11/2020 Collected: 08/11/2020 Reported: 08/11/2020 12:16 TSH SerPl DL<=0.005 mIU/L-aCnc 1.08 MicroInternationalUnitsPerMilliLiter_[Arbitrary_Con (0.35-5. 50) N (Normal) Note: Responsible Observer: TSH TSH 600 .7055 (D) Reviewed by Vianey Reis MD on 08/16; All test results are final unless otherwise noted. Lead (Venous) Wh.Bld [facility] Ordered by Vianey Reis MD on 08/11/2020 Collected: 08/11/2020 Reported: 08/12/2020 15:21 Lead Bld-sCnc <1 (<5) None Note: See Note 1Note 1This test was imelda mcgowan and its analytical performancecharacteristics have been determined by [employer]. It has not been cleared or approved by theA. This assay has been validated pursuant to the CLIAregulations and is used for clinical purposes.THIS TEST WAS PERFORMED AT:[facility] [address]YUYQPNDANAY MCKAYesponsible Observer: Lead, WB Lead, Whole Blood [id number] 918.9246 (QUEST) NOTES See Note None Note: Patient Street Address: [address] [place] [address] City: [facility] State: [facility] Zip Code: [address] Phone Number: [phone] Reviewed by Vianey Reis MD on 08/16; All test results are final unless otherwise noted. ncPN REF [facility] Ordered by Vianey Reis MD on 08/11/2020 Collected: 08/11/2020 Reported: 08/16/2020 11:23 T pallidum Ab Ser Ql Aggl See Note (Nonreactive) None Note: [id number] onreactiveTHIS TEST WAS PERFORMED AT:[id number] [place], [place] [address]AUNG LUNDY MD,PHDResponsible Observer: TP-PA Treponema pallidum Ab (TP-PA) [id number] 908.0286 ([email or web address]) HIV1 RNA SerPl Ql ALEJANDRO+probe See Note None Note: TNPNo Reportable ResultLTNPNo Repo rtable ResultLLEP.LIVENTNPResponsible Observer: HIV 1 RNA, QL T HIV 1 RNA, QL TMA [id number] 908.0254 ([email or web address]) RPR Ser-Titr See Note None Note: TNPNo Reportable ResultLTNPNo Repo rtable ResultLLEP.LIVENTNPResponsible Observer: RPR TITER (REFL RPR TITER (REFLEX) [id number] 908.0292 (QUEST) HBV surface Ag SerPl Ql IA See Note (NON-REACTIVE) None Note: LUW-YEHFMWTYHIE-[id number] 1NON-REACTIVETHIS TEST WAS PERFORMED AT:[facility],[facility]onsible Observer: HBSAG Hepatitis B Surface Antigen [id number] .2004 ([email or web address]) RUBV IgG SerPl IA-aCnc 5.89 None Note: Index Interpretatio n ----- <0.90 Not consistent with immunity 0.90-0.99 Equivocal > or = 1.00 Consistent with immunityThe presence of rubella IgG antibody suggestsimmunization or past or current infection withrubella virus.THIS TEST WAS PERFORMED AT:[facility]MINDY CRAVEN,MDResponsible Observer: Rubella IgG Ab Rubella IgG Ab [id number] 911.2840 ([email or web address]) HIV1 Ab SerPlBld Ql IA.rapid See Note None Note: TNPNo Reportable ResultLTNPNo Repo rtable ResultLLEP.LIVENTNPResponsible Observer: HIV 1 AB HIV 1 AB [id number] 908.0250 ([email or web address]) Rapid Plasma Reagin (RPR) See Note None Note: TNPNo Reportable ResultLTNPNo Repo rtable ResultLLEP.LIVENTNPResponsible Observer: RPR Rapid Plasma Reagin (RPR) [id number] 908.0290 ([email or web address]) HBsAg Confirmation See Note None Note: TNPNo Reportable ResultLTNPNo Repo rtable ResultLLEP.LIVENTNPResponsible Observer: HBsAg Confirm HBsAg Confirmation [id number] (QUEST) HIV (1&2) Screen, 4th Gen NON-REACTIVE [...] for this purpose.For additional information please refer tohttp://education.[employer]/faq/UDE203(This link is being provided for informational/educational purposes only.)The performance of this assay has not been clinicallyvalidated in patients less than 2 years old.THIS TEST WAS PERFORMED AT:[facility] [id number] MERATI,MDResponsible Observer: HIV ABS HIV (1&2) Screen, 4th Gen [id number] 908.0228 ([facility]) Reviewed by Vianey Reis MD on 08/16; All test results are final unless otherwise noted. Reported Physicians [facility] Ordered by Vianey Reis MD on 08/11/2020 Collected: 08/11/2020 Reported: 08/16/2020 11:23 Reported Physicians See Note None Note: Reported Physicians:Ordering: Vianey CaceresAttending: Vianey Reis Reviewed by Vianey Reis MD on 08/16; All test results are final unless otherwise noted. HCV RFX ALEJANDRO [facility] Ordered by Vianey Reis MD on 08/11/2020 Collected: 08/11/2020 Reported: 08/12/2020 15:21 HCV RNA SerPl ALEJANDRO+probe-aCnc See Note None Note: TNPNo Reportable ResultLTNPNo Repo rtable ResultLLEP.LIVENTNPResponsible Observer: HCV RNA, QN PCR HCV RNA, QUANT RT-PCR [id number] 831.6315 ([email or web address]) HCV Ab Ser Ql See Note (NON-REACTIVE) None Note: [id number] 5NON-REACTIVEResponsible Observer: HEP C ANTIBODY Hepatitis C Antibody [id number] 917.8590 ([email or web address]) HCV RNA Qualitative (ALEJANDRO) 0.01 (<1.00) None Note: HCV antibody was non-reactive. The re is no laboratoryevidence of HCV infection.In most cases, no further action is required. However,if recent HCV exposure is suspected, a test for HCV RNA(test code 47175) is suggested.For additional information please refer tohttp://education.[employer]/faq/OWC65z0(This link is being provided for informational/educational purposes only.)THIS TEST WAS PERFORMED AT:[facility] [address]KADANAY RUVALCABAesponsible Observer: SIG TO C/O SIGNAL TO CUTOFF [id number] 497.1966 ([email or web address]) NOTES See Note None Note: Patient Street Address: [address] [place] [address] City: [facility] State: [facility] Zip Code: [address] Phone Number: [phone] Reviewed by Vianey Reis MD on 08/15; All test results are final unless otherwise noted. Reported Physicians [facility] Ordered by Vianey Reis MD on 08/11/2020 Collected: 08/11/2020 Reported: 08/12/2020 15:21 Reported Physicians See Note None Note: Reported Physicians:Ordering: Vianey CaceresAttending: Vianey Reis Reviewed by Vianey Reis MD on 08/15; All test results are final unless otherwise noted. Type and Screen [facility] Ordered by Vianey Reis MD [...] are final unless otherwise noted. Reported Physicians [facility] Ordered by Vianey Reis MD on 08/11/2020 Collected: 08/11/2020 Reported: 08/11/2020 13:01 Reported Physicians See Note None Note: Reported Physicians:Ordering: Vianey CaceresAttending: Vianey Reis Reviewed by Vianey Reis MD on 08/15; All test results are final unless otherwise noted. Urinalysis w/out microscopy Office Lab Ordered by Vianey Ries MD on 08/09/[address] [place] [address], [phone] Specimen Source: Urine Collected: 08/09/2020 Reporte d: [...] are final unless otherwise noted. Urine culture [facility] Ordered by Vianey Reis MD on 08/09/2020 Collected: 08/09/2020 Reported: 08/11/2020 06:55 Bacteria Ur Cult See Note None Note: ESCCOLESCHERICHIA [id number] SCHERICHIA COLI [place] count Greater than 100,000 None NOTES See Note None Note: @08/11/20 0656: Urine ID Charge ad ded. RFLXG = CHGURID. Reviewed by Vianey Reis MD on 08/15; All test results are final unless otherwise noted. Gram Negative Panel 4 [facility] Ordered by Vianey eRis MD on 08/09/2020 Collected: 08/09/2020 Reported: 08/11/2020 [...] are final unless otherwise noted. Reported Physicians [facility] Ordered by Vianey Reis MD on 08/09/2020 Collected: 08/09/2020 Reported: 08/11/2020 06:56 Reported Physicians See Note None Note: Reported Physicians:Ordering: Vianey CaceresAttending: Vianey Reis Reviewed by Vianey Reis MD on 08/15; All test results are final unless otherwise noted. BHCG, QUANTITATIVE [facility] Ordered by Vianey Reis MD [...] are final unless otherwise noted. Reported Physicians [facility] Ordered by Vianey Reis MD on 07/05/2020 Collected: 07/05/2020 Reported: 07/05/2020 12:55 Reported Physicians See Note None Note: Reported Physicians:Ordering: Vianey CaceresAttending: Aubree LarkinCophayder To: Aubree Larkin Reviewed by iVaney Reis MD on 07/05; All test results are final unless otherwise noted. SURGICAL PATHOLOGY [facility] Ordered by Vianey Reis MD on 05/31/2020 Collected: 05/31/2020 Reported: 06/10/2020 06:59 Pathology studies See scanned report None Note: Responsible Observer: SURGICAL PAT H SURGICAL PATHOLOGY [phone] (A) NOTES See Note None Note: PATH SPEC #:: [id number] Reviewed by Vianey Reis MD on 06/11; All test results are final unless otherwise noted. Reported Physicians [facility] Ordered by Vianey Reis MD on 05/31/2020 Collected: 05/31/2020 Reported: 06/10/2020 06:59 Reported Physicians See Note None Note: Reported Physicians:Ordering: Vianey CaceresAttending: Vianey Reis Reviewed by Vianey Reis MD on 06/11; All test results are final unless otherwise noted. Strep antigen throat [facility] Ordered by Aubree Larkin [facility] on 04/02/2020 Collected: 04/02/2020 Reported: 04/03/2020 10:57 Strep Antigen throat Negative by antigen detection methods None NOTES See Note None Note: @04/02/20 1204: Throat strep sc ad ded. RFLXG = THSS. Reviewed by Aubree Larkin RPA on 04/04; All test results are final unless otherwise noted. Reported Physicians [facility] Ordered by Aubree Larkin RPA on 04/02/2020 Collected: 04/02/2020 Reported: 04/03/2020 10:58 Reported Physicians See Note None Note: Reported Physicians:Ordering: Tre ChambersAttending: Lindsay Esquivel To: Vianey Reis Reviewed by Aubree Larkin [facility] on 04/04; All test results are final unless otherwise noted. Respiratory Panel PCR [facility] Ordered by Aubree M Larkin [facility] on 04/02/2020 Collected: 04/02/2020 Reported: 04/02/2020 11:39 Resp path DNA+RNA Pnl Nph ALEJANDRO+non-probe See Note None Note: THIS RP PANEL TESTS FOR SA RS-CoV-2,(COVID-19)FilmArray Respiratory Panel is a Multiplexed NAAT-PCR testNORMAL VALUE FOR ALL 20 PATHOGENS IS "NOT DETECTED".The FilmArray RP panel detects Influenza A H1,H3 [id number] H1 viruses,Influenza B virus, Respiratory syncytialvirus, Human [...] CLINICIAN EVALUATING THE PATIENT.THE PERFORMANCE OF THE MuseARRAY RP HAS NOT BEEN ESTABLISHEDIN INDIVIDUALS WHO [...] BY A NASOPH ARYNGEAL SWAB SPECIMEN.NOSNo Organisms [id number] Organisms Detected Reviewed by Aubree Larkin RPA on 04/04; All test results are final unless otherwise noted. Strep antigen throat [facility] Ordered by Aubree Chaya [facility] on 04/02/2020 Collected: 04/02/2020 Reported: 04/02/2020 12:04 Strep Antigen throat Negative by antigen detection methods None NOTES See Note None Note: @04/02/20 1204: Throat strep sc ad ded. RFLXG = THSS. Reviewed by Aubree Chaya [facility] on 04/04; All test results are final unless otherwise noted. Throat strep screen [facility] Ordered by Aubree Chaya [facility] on 04/02/2020 Collected: 04/02/2020 Reported: 04/03/2020 10:57 Throat culture strep No Beta Strep isolated None NOTES See Note None Note: @04/02/20 1204: Throat strep sc ad ded. RFLXG = THSS. Reviewed by Aubree Larkin [facility] on 04/04; All test results are final unless otherwise noted. Reported Physicians [facility] Ordered by Aubree Chaya [facility] on 04/02/2020 Collected: 04/02/2020 Reported: 04/03/2020 10:58 Reported Physicians See Note None Note: Reported Physicians:Ordering: Tre ChambersAttending: Berry Esquivelhayder To: Vianey Reis Reviewed by Aubree Larkin [facility] on 04/04; All test results are [...] Procedures and Surgical History Includes: Procedures from 09/14/2019 through 09/13/2020 Procedures Code Diagnosis Performing Provider Service Location Service Date NO CHARGE- Nurse visit- OB establish [facility] 11 weeks ge station of Vianey Reis MD [facility], [facility] 08/16/2020 Urinalysis w/o Microscopy 62936 Dysuria Vianey han MD [facility], [facility] 08/09/2020 no charge procedure [place] Neoplasm of uncertai n behavior of skin, Encounter for removal of sutures Aubree Larkin [facility], [facility] 06/07/2020 Excision Benign Lesion .5 cm or less (trunk, arms, legs) 1 1400 Neoplasm of uncertain behavior of skin Vianey Reis MD [facility], [facility] 05/31/2020 Removal, non biodegradable implant (NEXP LANON) (Distinct Seperate service-same day) 20537 Nexplanon surveillance ( implantable sub dermal contraceptive Vianey Reis MD [facility], [facility] 05/31/2020 Surgical History Last Updated Prior surgery , unresponsive to anesthesia 1 Medical History Includes: Medical History in patient's chart Description Last Updated No recent immunization for flu 07/10/2016 No previous hospitalizations , did have [place], '04, 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/22/2009 Family [...] injectable 1 05/22/2012 Left Arm Complete (Administered) [facility] Influenza, seasonal, injectable 2 03/10/2019 Left Deltoid Complete (Administered) [facility] IPV 1 1993 Complete (Reported) Patient IPV 2 1993 Complete (Reported) Patient IPV 3 1993 Complete (Reported) Patient IPV 4 12/28/1997 Complete (Reported) Patient Meningococcal (MCV4) conjugate vaccine 1 02/01/2011 Complete (Reported) Patient MMR 1 07/18/1994 Complete (Reported) Patient MMR 2 12/28/1997 Complete (Reported) Patient Tdap (> 7 yrs) 1 08/15/2005 Complete (Reported) Osmany de paz Tdap (> 7 yrs) 2 10/07/2018 Right Deltoid Complete ( Administered) [facility] Allergies Includes: Active, inactive, and resolved Allergies [...] - 12:00AM Active Encounters Includes: Encounters from 09/14/2019 through 09/13/2020 Encounter Provider Location Date Check-In Time Check-Out Time D iagnosis REVISIT- Routine (OB) Visit Vianey Reis MD [facility], [facility] 09/13/2020 10:34AM 08/16/2020 11:59PM Obstetrics/ first visit Vianey Reis MD [facility], [facility] 08/16/2020 9:59AM 10:38AM nursing visit Vianey Reis MD [facility], [facility] 08/09/2020 8:08AM 8:19AM 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 Vianey Reis MD 07/04/2020 06/07/2020 8:58AM 06/07/2020 11:59PM Ambulatory Procedure Aubree Larkin [facility], [facility] 06/07/2020 11:26AM 11:55AM Dysplastic Nevus Ambulatory Procedure Vianey Reis MD [facility], [facility] 05/31/2020 9:55AM 10:48AM Visit For: Contracep tive Management, Dysplastic Nevus, Signs and Symptoms in Breast ANNUAL PE-followup /30 Aubree Larkin RPA [facility], [facility] 03/10/2020 2:58PM 3:59PM Routine History and Physical Adult (18 - 64 Yrs), Skin Neoplasm Uncertain Behavior, Acrochordon followup Vianey Reis MD [facility], [facility] 0 11/16/2019 11:33AM 11:52AM Depression, Metab olic Disorders, Disorder of Mitochondrial Metabolism, Generalized Anxiety Disorder, Post-traumatic Stress Disorder followup Vianey Reis MD [facility], [facility] 10/12 1:24PM 1:51PM Depression, Metabolic Disorde rs, Disorder of Mitochondrial Metabolism Insurance Includes: Active Insurance Policies Plan Name Member ID Group # Subscriber Relationship Effective Da devante 1 - [employer] [id number] Nataliia Bustamante Self Advance Directives Includes: Current Advance DirectivesNo Advance Directives Recorded Health Concerns Includes: Active Health ConcernsNo Active Health Concerns Recorded Goals Includes: Active GoalsNo Active Goals Recorded Interventions Includes: Interventions for active GoalsNo Interventions Recorded Evaluations & Outcomes Includes: Evaluations & Outcomes for active GoalsNo Outcomes Recorded
--- OUTSIDE RECORDS SUMMARY | 2021-03-12 03:38 | CCD ---
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 [phone] [place] [address] Jan, Aviva Faith Maternal care due to low transverse uterine scar from previous delivery O34.211 IMMUNIZATIONS Vaccine Route Administration Date Status TDAP 0.5mL Boostrix IM Intramuscular Jan 10, 2021 Administere d RHo D Immune Globulin 300mcg/1.5mL RhoGAM IM Intramuscular Dec Administered SOCIAL HISTORY Tobacco Use: Social History Observation Description Date Details (start date - stop date) Never Smoker Sex Assigned At : Social History Observation Description Sex Assigned At Unknown Tobacco Use: Question Answer Notes Are you a: never smoker REASON FOR REFERRAL No Information VITAL SIGNS Weight 200 lbs Jan, Weight-kg 90.72 kg Jan, Height 68 in 07 Sep, 2021 BMI 30.41 kg/m2 Jan, Blood pressure systolic 110 mm Hg Jan, Blood pressure diastolic 78 mm Hg Jan, MEDICATIONS Medication SIG (Take, Route, Frequency, Duration) Notes Start Da te End Date Status Cephalexin 250 MG 1 capsule Orally every 6 hrs Active 27-1 MG 1 tablet Orally Once a day Active Cephalexin Not-Taking PROCEDURES No Information RESULTS No Results REASON FOR VISIT 2 WK PN MEDICAL (GENERAL) HISTORY Type Description Date Medical History factor V leiden Medical History migraine headache Medical History Atypical gene status-difficulty processi ng meds Medical History Chronic kidney infections Surgical History 2019 Surgical History [place] teeth Hospitalization History /hematoma Hospitalization History Kidney infection Goals Section No Information Health Concerns No Information MEDICAL EQUIPMENT No Information MENTAL STATUS No Information FUNCTIONAL STATUS No Information ASSESSMENTS Encounter Date Diagnosis Assessment Notes Treatment Notes Treatm ent Clinical Notes Jan, Maternal care due to low tra nsverse uterine scar from previous delivery (ICD-10 - O34.211) PLAN OF TREATMENT Next Appt Details 2 Weeks Reason: Provider Name:Km Velasco, 2021-02-21 10:15:00 AM, [address] [place] [address], [place] [address], [address] [place] [address] Provider Name:Oj Mckeon, 2021-02-27 1 0:40:00 AM, [address] [place] [address], [place] [address], [address] [place] [address] Provider Name:Oj Mckeon, 2021-03-06 1 0:40:00 AM, [address] [place] [address], [place] [address], [address] [place] [address] Provider Name:Oj Mckeon, 2021-03-13 1 0:40:00 AM, [address] [place] [address], [place] [address], Insurance Providers Payer Name Payer Address Payer Phone Insured Name Patient Relati onship to Insured Coverage Start Date Coverage End Date [facility] PLAN [facility] [address] [facility] [address] KAYDEN CUMMINGS self
[2021-03-12] MEDS ORDERED: LACTATED RINGER'S 1000 ML IV STA (03:39)
--- OUTSIDE RECORDS SUMMARY | 2021-03-12 03:39 | CCD | Summary of Care ---
Author Author [facility] Address Unknown Phone Unavailable Care Team Providers Care Heart Coordinator Name Role Phone Vianey Reis MD PCP Reason for Visit * Reason Comments Contractions Encounter Details Care Team Description Date Type Department Rylan Spear MD [address] [place] [address] [phone] labor in third trimester without delivery (Primary Dx) [facility]14[facility] [address] [place] [address] Allergies Comments Active Allergy Reactions Severity Noted Date Pt states not so much an allergy, more of a reaction Amoxicillin Itching, Rash Low 07/20/2019 More reaction than allergy Cephalosporins Itching, Rash Low 07/20/2019 More a reaction than allergy Ciprofloxacin Itching, Rash Low 07/20/2019 documented as of this encounter (statuses as of 01/14/2021) Medications End Date Status Medication Sig Dispensed Refills Start Date Active Cephalexin 500 MG Oral Take 500 mg 0 Capsule (KEFLEX) by mouth Four times daily documented as of this encounter (statuses as of 01/14/2021) Active Problems Problem Noted Date Post depression 07/06/2019 PTSD (post-traumatic stress disorder) 07/06/2019 Anxiety, generalized 07/06/2019 Social anxiety disorder 07/06/2019 Estimated Date of Delivery Comments Yes 03/07/2021 documented as of this encounter (statuses as of 01/14/2021) Social History Date Tobacco Use Types Packs/Day Years Used Never Smoker Smokeless Tobacco: Never Used Comments Alcohol Use Standard Drinks/Week Not Currently 0 (1 standard drink = 0.6 o z pure alcohol) Estimated Date of Delivery Comments Yes 03/07/2021 Sex Assigned at Date Recorded Not on file documented as of this encounter Last Filed Vital Signs Reading Time Taken Comments Vital Sign 127/83 01/14/2021 5:22 PM EDT Blood Pressure 97 01/14/2021 5:22 PM EDT Pulse 36.9 C (98.4 F) 01/14/2021 4:56 PM EDT Temperature 24 01/14/2021 5:22 PM EDT Respiratory Rate 97% 01/14/2021 5:22 PM EDT Oxygen Saturation - - Inhaled Oxygen Concentration 89.4 kg (197 lb) 01/14/2021 4:56 PM EDT Weight 172.7 cm (5' 8") 01/14/2021 4:56 PM EDT Height 29.95 01/14/2021 4:56 PM EDT Body Mass Index documented in this encounter ED Notes * Verito Martini RN - 01/14/2021 4:56 PM EDT [place] Began having contractions Non stop and not due until February documented in this encounter Plan of Treatment Order Schedule Name Type Priority Associated Diag noses STAT for 1 Occurrences starting 01/15/20 21 until 01/14/2021 Urinalysis with Lab STAT microscopic Once for 1 Occurrences starting 01/15/20 21 until 01/14/2021 Urine Random Total Lab Routine Protein Creatinine Ratio Health Maintenance Due Date Last Done Comments MMR Vaccines (1 of 1 - 1994 12/28/1997, Standard series) 07/18/1994 Varicella Vaccines (1 of 1994 2 - 2-dose childhood series) HIV Screening 2006 Cervical Cancer Screening 2014 3 years DTaP,Tdap,and Td Vaccines 02/07/2021 01/10/2021, (2 - Td or Tdap) 10/07/2018, 08/15/2005, Additional history exists Influenza Vaccine 02/17/2021 03/10/2019, 05/02/2009 Pneumococcal Vaccine: 65+ 2058 Years (1 of 1 - PPSV23) HIB Vaccines Aged Out 07/18/1994, No longer eligi ble based on patient's age to 1993, complete this topic 1993, Additional history exists Hepatitis A Vaccines Aged Out 08/22/2011, No longer eligible based on patient's age to 02/01/2011 complete this topic Hepatitis B Vaccines Aged Out 1993, No longer eligible based on patient's age to 1993, complete this topic 1993 IPV Vaccines Aged Out 12/28/1997, No longer eligi ble based on patient's age to 1993, complete this topic 1993, Additional history exists Pneumococcal Vaccine: Aged Out No longer eligib le based on patient's age to Pediatrics (0 to 5 Years) complete this topic and At-Risk Patients (6 to 64 Years) documented as of this encounter Procedures Comments Procedure Name Priority Date/Time Associated Diag nosis CBC AND DIFFERENTIAL Routine 01/14/2021 6:05 PM EDT URIC ACID Routine 01/14/2021 6:05 PM EDT LACTATE DEHYDROGENASE Routine 01/14/2021 6:05 PM EDT COMPREHENSIVE METABOLIC STAT 01/14/2021 PANEL 6:05 PM EDT documented in this encounter Results * Uric acid (01/14/2021 6:05 PM EDT) Uric Acid 3.7 2.4 - 5.7 mg/dl [facility] Pathology Specimen Plasma Performing Organization Address City/[facility] P mary Number [facility] [address] [place], [place] [address] [address] Clin Pathology * LDH (01/14/2021 6:05 PM EDT) Lactate 197 122 - 214 U/L [facility] Clin Pathology Specimen Plasma Performing Organization Address City/[facility]/ZIP Code P mary Number [facility] [address] [place], [place] [address] [address] Clin Pathology * Comprehensive Metabolic Panel (01/14/2021 6:05 PM EDT) Albumin 4.0 3.5 - 5.2 g/dL [facility] Pathology Bilirubin, 0.2 <1.2 mg/dL [facility] Total [facility] Pathology Calcium 9.0 8.6 - 10.0 mg/dL [facility] Pathology Chloride 99 98 - 107 mmol/L [facility]ology Creatinine 0.57 0.50 - 0.90 mg/dL [facility]ology Glucose 117 70 - 140 mg/dL [facility] Pathology Alkaline 113 (H) 35 - 104 U/L [facility] Phosphatase [facility] Pathology Potassium 3.6 3.4 - 5.1 mmol/L [facility] Pathology Total Protein 6.5 6.4 - 8.3 g/dL [facility] Pathology Sodium 131 (L) 136 - 145 mmol/L [facility] Pathology AST/SGO 14 <32 U/L [facility] Pathology Blood Urea 7 6 - 20 mg/dL [facility] Nitrogen [facility] Clin Pathology Osmolality, Taye 272 (L) 275.0 - 300.0 [facility] mosm/kg [facility] Pathology BUN/Cre Ratio 11 [facility] Pathology Bicarbonate 20 (L) 22 - 29 mmol/L [facility] Pathology ALT/SGP 10 <33 U/L [facility] Pathology Anion Gap 12 8 - 15 mmol/L [facility] Pathology GFR Non >90 >60 mL/min/1.73m2 [facility] [place] [facility] Med [facility] Clin CDK-EPI Pathology GFR >90 >60 mL/min/1.73m2 [facility] 2008 Med [facility] Clin CKD-EPI Pathology Specimen Plasma Performing Organization Address City/State/ZIP Code P mary Number [facility] [address] [place], [place] [address] [address] Clin Pathology * CBC and Differential (01/14/2021 6:05 PM EDT) White Blood 10.5 (H) 4.00 - 10.00 10*3/uL [facility] ate Cell [facility] Pathology Red Blood Cell 4.38 4.10 - 5.30 10*6/uL [facility] Hemoglobin 13.6 11.5 - 15.5 g/dL [facility] Pathology Hematocrit 39.4 36.0 - 45.0 % [facility] Pathology Mean Cell 90.0 80.0 - 96.0 fL [facility] Volume [facility] Pathology Mean Cell 31.1 27.0 - 33.0 pg [facility] Hemoglobin [facility] Pathology Mean Cell Hgb 34.6 32 - 36 g/dL [facility] Conc [facility] Pathology Red Cell Dist 13.5 11.5 - 14.5 % [facility] Width [facility] Pathology Platelet Count 267 150 - 400 10*3/uL [facility] Pathology Differential Automated Diff [facility] Type [facility] Pathology Neutrophil 74 % [facility] Pathology Lymphocyte 20 % [facility]ology Monocyte 4 % [facility] Pathology Eosinophil 2 % [facility] Pathology Basophil 0 % [facility] Pathology Abs Neutrophil 7.80 (H) 1.80 - 7.00 10*3/uL [facility] Abs Lymphocyte 2.13 1.20 - 4.00 10*3/uL [facility] Clin Pathology Abs Monocyte 0.41 0.00 - 0.80 10*3/uL [facility] Clin Pathology Abs Eosinophil 0.16 0.00 - 0.50 10*3/uL [facility] Clin Pathology Abs Basophil 0.03 0.00 - 0.20 10*3/uL [facility] Clin Pathology Nucleated Red 0 0 - 0 /100{WBCs} [facility] Blood Cells [facility] Clin Pathology Specimen EDTA Whole Blood Performing Organization Address City/State/ZIP Code P mary Number [facility] [address] [place], [place] [address] PATHOLOGY [facility] [address] [place], [place] [address] Clin Pathology documented in this encounter Visit Diagnoses Diagnosis labor in third trimester withou t delivery - Primary documented in this encounter Administered Medications Action Date Dose Rate Site Medication Order MAR Action labetalol (TRANDATE) injection 20 mg 20 mg, Intravenous, Once PRN, High Blood Pressure, >160/110, Starting on 01/14/21 at 1736, For 1 dose, Dilute in 25-50 mL normal saline. Administer over 30 minutes. documented in this encounter Active and Recently Administered Medications Times are shown in EDT. 01/13/2021 01/14/2021 Medication Order 01/12/2021 labetalol (TRANDATE) injection 20 mg 20 mg, Intravenous, Once PRN, High Blood Pressure, >160/110, Starting on 01/14/21 at 1736, For 1 dose, Dilute in 25-50 mL normal saline. Administer over 30 minutes. documented in this encounter
--- OUTSIDE RECORDS SUMMARY | 2021-03-12 03:39 | CCD ---
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 [phone] [place] [address] Jan, Aviva Marcell Maternal care due to low transverse uterine scar from previous delivery O34.211 and 36 weeks gestation of Z3A.36 IMMUNIZATIONS Vaccine Route Administration Date Status TDAP [...] FOR REFERRAL No Information VITAL SIGNS Weight 201.8 lbs Jan, Weight-kg 91.53 kg Jan, Height 68 in Jan, BMI 30.684 kg/m2 Jan, Blood pressure systolic 118 mm Hg Jan, Blood pressure diastolic 72 mm Hg Jan, MEDICATIONS Medication SIG (Take, Route, Frequency, Duration) Notes Start Da te End Date Status Cephalexin 250 MG 1 capsule Orally every 6 hrs Active 27-1 MG 1 tablet Orally Once a day Active Cephalexin Not-Taking PROCEDURES No Information RESULTS Component Value Reference Range GROUP B STREP CULTURE Reviewed date:02/20/2021 07:53:20 Interpretation: Performing Lab:[facility], [facility] [address] [facility] [id number] , ,[place] [id number] REASON FOR VISIT 2 wk pn MEDICAL (GENERAL) HISTORY Type Description Date Medical History factor V leiden Medical History migraine headache Medical History Atypical gene status-difficulty processi ng meds Medical History Chronic kidney infections Surgical History 2018 Surgical History [place] teeth Hospitalization History /hematoma Hospitalization History Kidney infection Goals Section No Information Health Concerns No Information MEDICAL EQUIPMENT No Information MENTAL STATUS No Information FUNCTIONAL STATUS No Information ASSESSMENTS Encounter Date Diagnosis Assessment Notes Treatment Notes Treatm ent Clinical Notes Jan, Maternal care due to low tra nsverse uterine scar from previous delivery (ICD-10 - O34.211) Jan, 36 weeks gestation of (ICD-10 - Z3A.36 ) PLAN OF TREATMENT Next Appt Details prn Reason: Provider Name:Km Velasco, 2021-02-21 10:15:00 AM, [address] [place] [id number], [place], [address], Provider Name:Oj Mckeon, 2021-02-27 1 0:40:00 AM, [address] [place], [place] [id number], [place], [address], Provider Name:Oj Mckeon, 2021-03-06 1 0:40:00 AM, [address] [place], [place] [id number], [place], [address], Provider Name:Oj Mckeon, 2021-03-13 1 0:40:00 AM, [address] [facility], , [place], [address], Insurance Providers Payer Name Payer Address Payer Phone Insured Name Patient Relati onship to Insured Coverage Start Date Coverage End Date [facility] [address] [facility] [phone] KAYDEN CUMMINGS self
--- OUTSIDE RECORDS SUMMARY | 2021-03-12 03:39 | CCD ---
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 [id number] Problem Supervision of other normal Z34.80 Ac tive confirm [id number] ALLERGIES No Known Allergies ENCOUNTERS from 1993 to 2021-01-20 Encounter Location Date Provider Diagnosis [facility] Women[facility] Care [address] [place] [address] [place] [address] [facility] IMMUNIZATIONS Vaccine Route Administration Date Status TDAP [...] REASON FOR REFERRAL No Information VITAL SIGNS No information MEDICATIONS Medication SIG (Take, Route, Frequency, Duration) Notes Start Da te End Date Status Cephalexin 250 MG 1 capsule Orally every 6 hrs Active 27-1 MG 1 tablet Orally Once a day Active PROCEDURES No Information RESULTS No Results REASON FOR VISIT contractions MEDICAL (GENERAL) HISTORY Type Description Date Medical History factor V leiden Medical History migraine headache Medical History Atypical gene status-difficulty processi ng meds Medical History Chronic kidney infections Surgical History 2019 Surgical History [place] teeth Hospitalization History /hematoma Hospitalization History Kidney infection Goals Section No Information Health Concerns No Information MEDICAL EQUIPMENT No Information MENTAL STATUS No Information FUNCTIONAL STATUS No Information ASSESSMENTS No Information PLAN OF TREATMENT Next Appt Details Provider Name:Oj Mckeon, 2021-01-24 0 2:40:00 PM, [address] [facility], , [place], [address], Insurance Providers Payer Name Payer Address Payer Phone Insured Name Patient Relati onship to Insured Coverage Start Date Coverage End Date PENDING SALE [facility] [address] [facility] [phone] KAYDEN CUMMINGS self
--- OUTSIDE RECORDS SUMMARY | 2021-03-12 03:39 | CCD ---
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 535008681633513 Problem Supervision of other normal Z34.80 Ac tive confirm [id number] ALLERGIES No Known Allergies ENCOUNTERS from 1993 to 2020-12-27 Encounter Location Date Provider Diagnosis [facility] [address] [place] [address] [place] [address] Dec, Oj Mckeon Encounter for superv ision of normal in third trimester Z34.93 IMMUNIZATIONS Vaccine Route Administration Date Status RHo D Immune Globulin 300mcg/1.5mL RhoGAM IM Intramuscular Dec Administered SOCIAL HISTORY Tobacco Use: Social History Observation Description Date Details (start date - stop date) Never Smoker Sex Assigned At : Social History Observation Description Sex Assigned At Unknown Tobacco Use: Question Answer Notes Are you a: never smoker REASON FOR REFERRAL No Information VITAL SIGNS Weight 195 lbs Dec, Weight-kg 88.45 kg Dec, Height 68 in Dec, BMI 29.65 kg/m2 Dec, Blood pressure systolic 118 mm Hg Dec, Blood pressure diastolic 70 mm Hg Dec, MEDICATIONS Medication SIG (Take, Route, Frequency, Duration) Notes Start Da te End Date Status Cephalexin 250 MG 1 capsule Orally every 6 hrs Active 27-1 MG 1 tablet Orally Once a day Active PROCEDURES from 1993 to 2020-12-27 Procedure Date Ordered Result Body Site Inj: RhoGAM 300mcg/1.5mL IM Rho D Immune Globulin Human N/A RESULTS No Results REASON FOR VISIT 4 wk pn MEDICAL (GENERAL) HISTORY Type Description Date Medical History factor V leiden Medical History migraine headache Medical History Atypical gene status-difficulty processi ng meds Medical History Chronic kidney infections Surgical History 2019 Surgical History [place] teeth Hospitalization History /hematoma Hospitalization History Kidney infection Goals Section No Information Health Concerns No Information MEDICAL EQUIPMENT No Information MENTAL STATUS No Information FUNCTIONAL STATUS No Information ASSESSMENTS Encounter Date Diagnosis Assessment Notes Treatment Notes Treatm ent Clinical Notes Dec, Encounter for supervision of normal in third trimester (ICD-10 - Z34.93) PLAN OF TREATMENT Next Appt Details 2 Weeks Reason: Provider Name:Km Velasco, 2021-01-10 03:30:00 PM, [address] [facility], , [place], [address], Insurance Providers Payer Name Payer Address Payer Phone Insured Name Patient Relati onship to Insured Coverage Start Date Coverage End Date [facility] [address] [facility] [phone] KAYDEN CUMMINGS self
--- OUTSIDE RECORDS SUMMARY | 2021-03-12 03:39 | CCD ---
Author Author [facility] Organization 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 724344533554733 Problem Supervision of other normal Z34.80 Ac tive confirm [id number] ALLERGIES No Known Allergies ENCOUNTERS from 1993 to 2021-01-19 Encounter Location Date Provider Diagnosis [facility] Women[facility] Breast Care [address] [place] [address] [place] [address] Dec, Km Velasco Maternal care due to low transverse uterine scar from previous delivery O34.211 ; 32 weeks gestation of Z3A.32 ; Encounter for immunization Z23 and Encounter for supervision of other normal in third trimester Z34.83 IMMUNIZATIONS Vaccine Route [...] FOR REFERRAL No Information VITAL SIGNS Weight 197 lbs Dec, Weight-kg 89.36 kg Dec, Height 68 in Dec, BMI 29.954 kg/m2 Dec, Blood pressure systolic 118 mm Hg Dec, Blood pressure diastolic 78 mm Hg Dec, MEDICATIONS Medication SIG (Take, Route, Frequency, Duration) Notes Start Da te End Date Status Cephalexin 250 MG 1 capsule Orally every 6 hrs Active 27-1 MG 1 tablet Orally Once a day Active PROCEDURES from 1993 to 2021-01-19 Procedure Date Ordered Result Body Site Imm: Boostrix 0.5mL IM TDAP 2021-01-10 N/A RESULTS No Results REASON FOR VISIT 2 WK PN MEDICAL (GENERAL) HISTORY Type Description Date Medical History factor V leiden Medical History migraine headache Medical History Atypical gene status-difficulty processi ng meds Medical History Chronic kidney infections Surgical History 2018 Surgical History [place] teeth Hospitalization History /hematoma Hospitalization History Kidney infection Goals Section No Information Health Concerns No Information MEDICAL EQUIPMENT No Information MENTAL STATUS No Information FUNCTIONAL STATUS No Information ASSESSMENTS Encounter Date Diagnosis Assessment Notes Treatment Notes Treatm ent Clinical Notes Dec, Maternal care due to low tra nsverse uterine scar from previous delivery (ICD-10 - O34.211) Dec, 32 weeks gestation of (ICD-10 - Z3A.32 ) Dec, Encounter for immunization (ICD-10 - Z23) Dec, Encounter for supervision of other normal in third trimester (ICD-10 - Z34.83) PLAN OF TREATMENT Next Appt Details Provider Name:Oj Mckeon, 2021-01-24 0 2:40:00 PM, [address] [facility], , [place], [address], Insurance Providers Payer Name Payer Address Payer Phone Insured Name Patient Relati onship to Insured Coverage Start Date Coverage End Date [facility] [address] [facility] [phone] KAYDEN CUMMINGS self
[2021-03-12] MEDS ORDERED: CARBOPROST TROMETHAMINE 250 MCG/ML AMP IM PRN (03:40)
[2021-03-12] MEDS ORDERED: TRANEXAMIC ACID INJection 1,000 MG in NS 100 ML IV PRN (03:40)
[2021-03-12] MEDS ORDERED: METHYLERGONOVINE MALEATE 0.2 MG/ML VIAL (J2210) IM PRN (03:40)
--- OUTSIDE RECORDS SUMMARY | 2021-03-12 03:40 | CCD ---
Author Author [facility] Organization [facility] Address Unknown Phone Unavailable Care Team Providers Care Motor Vehicle Operator Road Supervisor Name Role Phone Myrna Esquivel MD Unavailable Unavailable Myrna Esquivel MD Unavailable Unavailable Myrna Esquivel MD Unavailable Unavailable Myrna Esquivel MD Unavailable Unavailable Myrna Esquivel MD Unavailable Unavailable Myrna Esquivel MD Unavailable Unavailable Myrna Esquivel MD Unavailable Unavailable Myrna Esquivel MD Unavailable Unavailable Albert NGUYEN MD Unavailable Unavailable Albert NGUYEN MD Unavailable Unavailable Albert NGUYEN MD Unavailable Unavailable Albert NGUYEN MD Unavailable Unavailable Albert NGUYEN MD Unavailable Unavailable Albert NGUYEN MD Unavailable Unavailable Albert NGUYEN MD Unavailable Unavailable Albert NGUYEN MD Unavailable Unavailable Doug Vicente MD Unavailable Unavailable Doug Vicente MD Unavailable Unavailable Doug Vicente MD Unavailable Unavailable Doug Vicente MD Unavailable Unavailable Doug Vicente MD Unavailable Unavailable Doug Vicente MD Unavailable Unavailable Doug Vicente MD Unavailable Unavailable Doug Vicente MD Unavailable Unavailable Doug Vicente MD Unavailable Unavailable Doug Vicente MD Unavailable Unavailable Doug Vicente MD Unavailable Unavailable Doug Vicente MD Unavailable Unavailable Doug Vicente MD Unavailable Unavailable Doug Vicente MD Unavailable Unavailable Doug Vicente MD Unavailable Unavailable Doug Vicente MD Unavailable Unavailable Doug Vicente MD Unavailable Unavailable Doug Vicente MD Unavailable Unavailable Doug Vicente MD Unavailable Unavailable Doug Vicente MD Unavailable Unavailable Doug Vicente MD Unavailable Unavailable Doug Vicente MD Unavailable Unavailable Doug Vicente MD Unavailable Unavailable Doug Vicente MD Unavailable Unavailable Doug Vicente MD Unavailable Unavailable Doug Vicente MD Unavailable Unavailable Doug Vicente MD Unavailable Unavailable Doug Vicente MD Unavailable Unavailable Doug Vicente MD Unavailable Unavailable Doug Vicente MD Unavailable Unavailable Doug Vicente MD Unavailable Unavailable Doug Vicente MD Unavailable Unavailable Doug Vicente MD Unavailable Unavailable Doug Vicente MD Unavailable Unavailable Doug Vicente MD Unavailable Unavailable Fanny Reis MD Unavailable Unavailable Fanny Reis MD Unavailable Unavailable Fanny Reis MD Unavailable Unavailable Fanny Reis MD Unavailable Unavailable Fanny Reis MD Unavailable Unavailable Fanny Reis MD Unavailable Unavailable Fanny Reis MD Unavailable Unavailable Fanny Reis MD Unavailable Unavailable Fanny Reis MD Unavailable Unavailable Fanny Reis MD Unavailable Unavailable Fanny Reis MD Unavailable Unavailable Fanny Reis MD Unavailable Unavailable Fanny Reis MD Unavailable Unavailable Fanny Reis MD Unavailable Unavailable Fanny Reis MD Unavailable Unavailable Fanny Reis MD Unavailable Unavailable Fanny Reis MD Unavailable Unavailable Fanyn Reis MD Unavailable Unavailable Smiley, E Vianey MD Unavailable Unavailable Smiley, E Vianey MD Unavailable Unavailable Smiley, E Vianey MD Unavailable Unavailable Smiley, E Vianey MD Unavailable Unavailable Smiley, E Vianey MD Unavailable Unavailable Smiley, E Vianey MD Unavailable Unavailable Smiley, E Vianey MD Unavailable Unavailable Smiley, E Vianey MD Unavailable Unavailable Smiley, E Vianey MD Unavailable Unavailable Smiley, E Vianey MD Unavailable Unavailable Smiley, E Vianey MD Unavailable Unavailable Smiley, E Vianey MD Unavailable Unavailable Smiley, E Vianey MD Unavailable Unavailable Smiley, E Vianey MD Unavailable Unavailable Smiley, E Vianey MD Unavailable Unavailable Smiley, E Vianey MD Unavailable Unavailable Smiley, E Vianey MD Unavailable Unavailable Smiley, E Vianey MD Unavailable Unavailable Smiley, E Vianey MD Unavailable Unavailable Smiley, E Vianey MD Unavailable Unavailable Smiley, E Vianey MD Unavailable Unavailable Smiley, E Vianey MD Unavailable Unavailable Smiley, E Vianey MD Unavailable Unavailable Smiley, E Vianey MD Unavailable Unavailable Smiley, E Vianey MD Unavailable Unavailable Smiley, E Vianey MD Unavailable Unavailable Smiley, E Vianey MD Unavailable Unavailable Smiley, E Vianey MD Unavailable Unavailable Smiley, E Vianey MD Unavailable Unavailable Smiley, E Vianey MD Unavailable Unavailable Smiley, E Vianey MD Unavailable Unavailable Smiley, E Vianey MD Unavailable Unavailable Smiley, E Vianey MD Unavailable Unavailable Smiley, E Vianey MD Unavailable Unavailable Smiley, E Vianey MD Unavailable Unavailable Smiley, E Vianey MD Unavailable Unavailable Neil, D Greg CAMPAIGN ASSISTANT Unavailable Unavailable Neil, D Greg CAMPAIGN ASSISTANT Unavailable Unavailable Neil, D Greg CAMPAIGN ASSISTANT Unavailable Unavailable Neil, D Greg CAMPAIGN ASSISTANT Unavailable Unavailable Neil, D Greg CAMPAIGN ASSISTANT Unavailable Unavailable Neil, D Greg CAMPAIGN ASSISTANT Unavailable Unavailable Neil, D Greg CAMPAIGN ASSISTANT Unavailable Unavailable Neil, D Greg CAMPAIGN ASSISTANT Unavailable Unavailable Neil, D Greg CAMPAIGN ASSISTANT Unavailable Unavailable Neil, D Greg CAMPAIGN ASSISTANT Unavailable Unavailable Neil, D Greg CAMPAIGN ASSISTANT Unavailable Unavailable Neil, D Greg CAMPAIGN ASSISTANT Unavailable Unavailable Neil, D Greg CAMPAIGN ASSISTANT Unavailable Unavailable Neil, D Greg CAMPAIGN ASSISTANT Unavailable Unavailable Neil, D Greg CAMPAIGN ASSISTANT Unavailable Unavailable Neil, D Greg CAMPAIGN ASSISTANT Unavailable Unavailable Neil, D Greg CAMPAIGN ASSISTANT Unavailable Unavailable Neil, D Greg CAMPAIGN ASSISTANT Unavailable Unavailable Neil, D Greg CAMPAIGN ASSISTANT Unavailable Unavailable Neil, D Greg CAMPAIGN ASSISTANT Unavailable Unavailable Neil, D Greg CAMPAIGN ASSISTANT Unavailable Unavailable Neil, D Greg CAMPAIGN ASSISTANT Unavailable Unavailable Neil, D Greg CAMPAIGN ASSISTANT Unavailable Unavailable Neil, D Greg CAMPAIGN ASSISTANT Unavailable Unavailable Neil, D Greg CAMPAIGN ASSISTANT Unavailable Unavailable Neil, D Greg CAMPAIGN ASSISTANT Unavailable Unavailable Neil, D Greg CAMPAIGN ASSISTANT Unavailable Unavailable Neil, D Greg CAMPAIGN ASSISTANT Unavailable Unavailable Neil, D Greg CAMPAIGN ASSISTANT Unavailable Unavailable Neil, D Greg CAMPAIGN ASSISTANT Unavailable Unavailable Neil, D Greg CAMPAIGN ASSISTANT Unavailable Unavailable Neil, D Greg CAMPAIGN ASSISTANT Unavailable Unavailable Neil, D Greg CAMPAIGN ASSISTANT Unavailable Unavailable Enil, D Greg CAMPAIGN ASSISTANT Unavailable Unavailable Neil, D Greg CAMPAIGN ASSISTANT Unavailable Unavailable Enil, D Greg CAMPAIGN ASSISTANT Unavailable Unavailable Neil, D Greg CAMPAIGN ASSISTANT Unavailable Unavailable Neil, D Greg CAMPAIGN ASSISTANT Unavailable Unavailable Neil, D Greg CAMPAIGN ASSISTANT Unavailable Unavailable Neil, D Greg CAMPAIGN ASSISTANT Unavailable Unavailable Larkin, Aubree PA Unavailable Unavailable Larkin, Aubree PA Unavailable Unavailable Larkin, Aubree PA Unavailable Unavailable Larkin, Aubree PA Unavailable Unavailable Larkin, Aubree PA Unavailable Unavailable Larkin, Aubree PA Unavailable Unavailable Larkin, Aubree PA Unavailable Unavailable Larkin, Aubree PA Unavailable Unavailable Larkin, Aubree PA Unavailable Unavailable Lrakin, Aubree PA Unavailable Unavailable Larkin, Aubree PA Unavailable Unavailable Larkin, Aubree PA Unavailable Unavailable Larkin, Aubree PA Unavailable Unavailable Larkin, Aubree PA Unavailable Unavailable Larkin, Aubree PA Unavailable Unavailable Larkin, Aubree PA Unavailable Unavailable Larkin, Aubree PA Unavailable Unavailable Larkin, Aubree PA Unavailable Unavailable Larkin, Aubree PA Unavailable Unavailable Larkin, Aubree PA Unavailable Unavailable Larkin, Aubree PA Unavailable Unavailable Larkin, Aubree PA Unavailable Unavailable Larkin, Aubree PA Unavailable Unavailable Larkin, Aubree PA Unavailable Unavailable Larkin, Aubree PA Unavailable Unavailable Larkin, Aubree PA Unavailable Unavailable Larkin, Aubree PA Unavailable Unavailable Larkin, Aubree PA Unavailable Unavailable Larkin, Aubree PA Unavailable Unavailable Larkin, Aubree PA Unavailable Unavailable Larkin, Aubree PA Unavailable Unavailable Larkin, Aubree PA Unavailable Unavailable Larkin, Aubree PA Unavailable Unavailable Larkin, Aubree PA Unavailable Unavailable Larkin, Aubree PA Unavailable Unavailable Larkin, Aubree PA Unavailable Unavailable Larkin, Aubree PA Unavailable Unavailable Larkin, Aubree PA Unavailable Unavailable Larkin, Aubree PA Unavailable Unavailable Larkin, Aubree PA Unavailable Unavailable Larkin, Aubree PA Unavailable Unavailable Larkin, Aubree PA Unavailable Unavailable Larkin, Aubree PA Unavailable Unavailable Larkin, Aubree PA Unavailable Unavailable Larkin, Aubree PA Unavailable Unavailable Larkin, Aubree PA Unavailable Unavailable Larkin, Aubree PA Unavailable Unavailable Larkin, Aubree PA Unavailable Unavailable Larkin, Aubree PA Unavailable Unavailable Larkin, Aubree PA Unavailable Unavailable Larkin, Aubree PA Unavailable Unavailable Larkin, Aubree PA Unavailable Unavailable Larkin, Aubree PA Unavailable Unavailable Larkin, Aubree PA Unavailable Unavailable Larkin, Aubree PA Unavailable Unavailable Larkin, Aubree PA Unavailable Unavailable Larkin, Aubree PA Unavailable Unavailable Larkin, Aubree PA Unavailable Unavailable Larkin, Aubree PA Unavailable Unavailable Larkin, Aubree PA Unavailable Unavailable Larkin, Aubree PA Unavailable Unavailable Larkin, Aubree PA Unavailable Unavailable Larkin, Aubree PA Unavailable Unavailable Larkin, Aubree PA Unavailable Unavailable Larkin, Aubree PA Unavailable Unavailable Larkin, Aubree PA Unavailable Unavailable Larkin, Aubree PA Unavailable Unavailable Larkin, Aubree PA Unavailable Unavailable Larkin, Aubree PA Unavailable Unavailable Larkin, Aubree PA Unavailable Unavailable Larkin, Aubree PA Unavailable Unavailable Larkin, Aubree PA Unavailable Unavailable Larkin, Aubree PA Unavailable Unavailable Larkin, Aubree PA Unavailable Unavailable Larkin, Aubree PA Unavailable Unavailable Larkin, Aubree PA Unavailable Unavailable Larkin, Aubree PA Unavailable Unavailable Larkin, Aubree PA Unavailable Unavailable Larkin, Aubree PA Unavailable Unavailable Larkin, Aubree PA Unavailable Unavailable Larkin, Aubree PA Unavailable Unavailable Larkin, Aubree PA Unavailable Unavailable Doug Vicente MD Unavailable Unavailable Doug Vicente MD Unavailable Unavailable Doug Vicente MD Unavailable Unavailable Doug Vicente MD Unavailable Unavailable Doug Vicente MD Unavailable Unavailable Doug Vicente MD Unavailable Unavailable Doug Vicente MD Unavailable Unavailable Doug Vicente MD Unavailable Unavailable Doug Vicente MD Unavailable Unavailable Doug Vicente MD Unavailable Unavailable Doug Vicente MD Unavailable Unavailable Doug Vicente MD Unavailable Unavailable Doug Vicente MD Unavailable Unavailable Doug Vicente MD Unavailable Unavailable Doug Vicente MD Unavailable Unavailable Doug Vicente MD Unavailable Unavailable Doug Vicente MD Unavailable Unavailable Doug Vicente MD Unavailable Unavailable Doug Vicente MD Unavailable Unavailable Doug Vicente MD Unavailable Unavailable Doug Vicente MD Unavailable Unavailable Doug Vicente MD Unavailable Unavailable Doug Vicente MD Unavailable Unavailable Doug Vicente MD Unavailable Unavailable Doug Vicente MD Unavailable Unavailable Doug Vicente MD Unavailable Unavailable Doug Vicente MD Unavailable Unavailable Doug Vicente MD Unavailable Unavailable Doug Vicente MD Unavailable Unavailable Doug Vicente MD Unavailable Unavailable Doug Vicente MD Unavailable Unavailable Doug Vicente MD Unavailable Unavailable Doug Vicente MD Unavailable Unavailable Doug Vicente MD Unavailable Unavailable Doug Vicente MD Unavailable Unavailable Neil, D Greg CAMPAIGN ASSISTANT Unavailable Unavailable Neil, D Greg CAMPAIGN ASSISTANT Unavailable Unavailable Neil, D Greg CAMPAIGN ASSISTANT Unavailable Unavailable Neil, D Greg CAMPAIGN ASSISTANT Unavailable Unavailable Neil, D Greg CAMPAIGN ASSISTANT Unavailable Unavailable Neil, D Greg CAMPAIGN ASSISTANT Unavailable Unavailable Neil, D Greg CAMPAIGN ASSISTANT Unavailable Unavailable Neil, D Greg CAMPAIGN ASSISTANT Unavailable Unavailable Neil, D Greg CAMPAIGN ASSISTANT Unavailable Unavailable Neil, D Greg CAMPAIGN ASSISTANT Unavailable Unavailable Neil, D Greg CAMPAIGN ASSISTANT Unavailable Unavailable Neil, D Greg CAMPAIGN ASSISTANT Unavailable Unavailable Neil, D Greg CAMPAIGN ASSISTANT Unavailable Unavailable Neil, D Greg CAMPAIGN ASSISTANT Unavailable Unavailable Neil, D Greg CAMPAIGN ASSISTANT Unavailable Unavailable Neil, D Greg CAMPAIGN ASSISTANT Unavailable Unavailable Neil, D Greg CAMPAIGN ASSISTANT Unavailable Unavailable Neil, D Greg CAMPAIGN ASSISTANT Unavailable Unavailable Neil, D Greg CAMPAIGN ASSISTANT Unavailable Unavailable Neil, D Greg CAMPAIGN ASSISTANT Unavailable Unavailable Neil, D Greg CAMPAIGN ASSISTANT Unavailable Unavailable Neil, D Greg CAMPAIGN ASSISTANT Unavailable Unavailable Neil, D Greg CAMPAIGN ASSISTANT Unavailable Unavailable Neil, D Greg CAMPAIGN ASSISTANT Unavailable Unavailable Neil, D Greg CAMPAIGN ASSISTANT Unavailable Unavailable Neil, D Greg CAMPAIGN ASSISTANT Unavailable Unavailable Neil, D Greg CAMPAIGN ASSISTANT Unavailable Unavailable Neil, D Greg CAMPAIGN ASSISTANT Unavailable Unavailable Neil, D Greg CAMPAIGN ASSISTANT Unavailable Unavailable Neil, D Greg CAMPAIGN ASSISTANT Unavailable Unavailable Neil, D Greg CAMPAIGN ASSISTANT Unavailable Unavailable Neil, D Greg CAMPAIGN ASSISTANT Unavailable Unavailable Neil, D Greg CAMPAIGN ASSISTANT Unavailable Unavailable Neil, D Greg CAMPAIGN ASSISTANT Unavailable Unavailable Neil, D Greg CAMPAIGN ASSISTANT Unavailable Unavailable Neil, D Greg CAMPAIGN ASSISTANT Unavailable Unavailable Neil, D Greg CAMPAIGN ASSISTANT Unavailable Unavailable Neil, D Greg CAMPAIGN ASSISTANT Unavailable Unavailable Neil, D Greg CAMPAIGN ASSISTANT Unavailable Unavailable Neil, D Greg CAMPAIGN ASSISTANT Unavailable Unavailable Fanny Reis MD Unavailable Unavailable Fanny Reis MD Unavailable Unavailable Fanny Reis MD Unavailable Unavailable Fanny Reis MD Unavailable Unavailable Fanny Reis MD Unavailable Unavailable Fanny Reis MD Unavailable Unavailable Fanny Reis MD Unavailable Unavailable Smiley, E Vianey MD Unavailable Unavailable Smiley, E Vianey MD Unavailable Unavailable Smiley, E Ivaney MD Unavailable Unavailable Smiley, E Vianey MD Unavailable Unavailable Smiley, E Vianey MD Unavailable Unavailable Smiley, E Vianey MD Unavailable Unavailable Smiley, E Vianey MD Unavailable Unavailable Smiley, E Vianey MD Unavailable Unavailable Smiley, E Vianey MD Unavailable Unavailable Smiley, E Vianey MD Unavailable Unavailable Smiley, E Vianey MD Unavailable Unavailable Smiley, E Vianey MD Unavailable Unavailable Smiley, E Vianey MD Unavailable Unavailable Smiley, E Vianey MD Unavailable Unavailable Smiley, E Vianey MD Unavailable Unavailable Smiley, E Vianey MD Unavailable Unavailable Smiley, E Vianey MD Unavailable Unavailable Smiley, E Vianey MD Unavailable Unavailable Smiley, E Vianey MD Unavailable Unavailable Smiley, E Vianey MD Unavailable Unavailable Smiley, E Vianey MD Unavailable Unavailable Smiley, E Vianey MD Unavailable Unavailable Smiley, E Vianey MD Unavailable Unavailable Smiley, E Vianey MD Unavailable Unavailable Smiley, E Vianey MD Unavailable Unavailable Smiley, E Vianey MD Unavailable Unavailable Smiley, E Vianey MD Unavailable Unavailable Smiley, E Vianey MD Unavailable Unavailable Smiley, E Vianey MD Unavailable Unavailable Smiley, E Vianey MD Unavailable Unavailable Smiley, E Vianey MD Unavailable Unavailable Smiley, E Vianey MD Unavailable Unavailable Smiley, E Vianey MD Unavailable Unavailable Smiley, E Vianey MD Unavailable Unavailable Smiley, E Vianey MD Unavailable Unavailable Smiley, E Vianey MD Unavailable Unavailable Smiley, E Vianey MD Unavailable Unavailable Smiley, E Vianey MD Unavailable Unavailable Smiley, E Vianey MD Unavailable Unavailable Smiley, E Vianey MD Unavailable Unavailable Smiley, E Vianey MD Unavailable Unavailable Smiley, E Vianey MD Unavailable Unavailable Smiley, E Vianey MD Unavailable Unavailable Smiley, E Vianey MD Unavailable Unavailable Smiley, E Vianey MD Unavailable Unavailable Smiley, E Vianey MD Unavailable Unavailable Smiley, E Vianey MD Unavailable Unavailable Re-disclosure Warning The records that you are about to access may contain information from federally-assisted alcohol or drug abuse programs. If such information is present, then the following federally mandated warning applies: This information has been disclosed to you from records protected by federal confidentiality rules (42 CFR part 2). The federal rules prohibit you from making any further disclosure of this information unless further disclosure is expressly permitted by the written consent of the person to whom it pertains or as otherwise permitted by 42 CFR part 2. A general authorization for the release of medical or other information is NOT sufficient for this purpose. The Federal rules restrict any use of the information to criminally investigate or prosecute any alcohol or drug abuse patient.The records that you are about to access may contain highly sensitive health information, the redisclosure of which is protected by Article 27-F of the [place] [facility] [place] [employer] law. If you continue you may have access to information: Regarding HIV / AIDS; Provided by facilities licensed or operated by the [facility] Office of Mental Health; or Provided by the [facility] Office for People With Developmental Disabilities. If such information is present, then the following [facility] mandated warning applies: This information has been disclosed to you from confidential records which are protected by state law. State law prohibits you from making any further disclosure of this information without the specific written consent of the person to whom it pertains, or as otherwise permitted by law. Any unauthorized further disclosure in violation of state law may result in a fine or chcf sentence or both. A general authorization for the release of medical or other information is NOT sufficient authorization for further disc losure. Allergies and Adverse Reactions Type Description Substance Reaction Status Data Source(s ) Drug allergy Macrobid Nitrofurantoin Monohyd Macro Nausea, Vomiting Active [place] ([facility]) Drug allergy Macrobid Nitrofurantoin Monohyd Macro Nausea, Vomiting Active [place] ([facility]) Drug allergy Macrobid Nitrofurantoin Monohyd Macro Nausea, Vomiting Active [place] ([facility]) Family History Family Member Name Family Member Gender Family Member Status Date o f Status Description Data Source(s) Unknown Condition [facility] Unknown Condition [facility] Unknown Condition [facility] Unknown Condition [facility] Unknown Condition [facility] Unknown Condition [facility] Unknown Condition [facility] Condition [facility] Unknown Condition [facility] Unknown Condition [facility] Unknown Condition [facility] Unknown Condition [facility] Unknown Condition [facility] Unknown Condition [facility] Unknown Condition [facility] Unknown Condition [facility] Unknown Condition [facility] Unknown Condition [facility] Unknown Condition [facility] Unknown Condition [facility] Unknown Condition [facility] Unknown Condition [facility] Unknown Condition [facility] Unknown Condition [facility] Unknown Condition [facility] Unknown Condition [facility] Unknown Condition [facility] Encounters Encounter Providers Location Date Indications Data Source(s ) ( ESTOB) [facility] Est OB [address] [place] [address] 03/06/2021 12:00:00 AM EDT eCW1 ([facility]) ( ESTOB) [facility] [address] [place] [address] 02/27/2021 12:00:00 AM EDT eCW1 ([facility]) ( ESTOB) [facility] [address] [place] [address] 02/21/2021 12:00:00 AM EDT eCW1 ([facility]) ( ESTOB) [facility] Est OB [address] [place] [address] 02/14/2021 12:00:00 AM EDT eCW1 ([facility]) ( ESTOB) [facility] [address] [place] [address] 02/07/2021 12:00:00 AM EDT eCW1 ([facility]) ( ESTOB) [facility] [address] [place] [address] 01/24/2021 12:00:00 AM EDT eCW1 ([facility]) Unknown [address] [facility] [address] 01/20/2021 12:00:00 AM EDT eCW1 ([facility]) Outpatient Attender: Elijah Vicente MD 01/14/2021 07:46:11 PM EDT [facility] Outpatient Attender: Elijah Vicente MDAdmitter: Elijah anderson MD 01/14/2021 06:19:00 PM EDT - 01/14/2021 09:00:00 PM EDT RULE OUT RUPTURE DD [id number] [facility] RULE OUT RUPTURE DD [id number] Patient discharged. Emergency Attender: GREG NGUYEN MD [id number] 01/14/2021 12:00:00 AM EDT - 01/14/2021 06:14:00 PM EDT [facility] Patient discharged. ( ESTOB) [facility] Est OB [address] [place] [address] 01/10/2021 12:00:00 AM EDT eCW1 ([facility]) ( ESTOB) [facility] Est OB [address] [place] [address] 12/26/2020 12:00:00 AM EDT eCW1 ([facility]) ( ESTOB) [facility] Est OB [address] [place] [address] 11/28/2020 12:00:00 AM EDT eCW1 ([facility]) ( ESTOB) [facility] Est OB [address] [place] [address] 11/02/2020 12:00:00 AM EDT eCW1 ([facility]) [place] [address] [facility] [address] 10/21/2020 12:00:00 AM EDT eCW1 ([facility]) Outpatient Attender: Vianey Reis MD 10/20/2020 11:24:[address] [facility] ANATOMY [place] [address] [facility] [address] 10/10/2020 12:00:00 AM EDT eCW1 ([facility]) ( NEWOB) [facility] New OB Visit [address] [place] [address] 10/04/2020 12:00:00 AM EDT eCW1 ([facility]) Outpatient<td ID="encounterTypeDescripti [email or web address]">REVISIT- Routine (OB) Visit</td><td>Vianey Reis MD</td><td>[facility]</td><td>09/13/2020</td><td>10:34AM</td><td>08/16/2020 11:59PM</td><td></td> Attender: Vianey Reis MD [facility], [place] 09/13/2020 10:34:00 AM EDT - 08/16/2020 11:59:00 PM EDT [facility] ([facility]) Outpatient Attender: Vianey Reis MD 08/16/2020 10:20:[address] [facility] Z3A.11 Outpatient<td ID="encounterTypeDescripti [email or web address]">Obstetrics/ first visit</td><td>Vianey Reis MD</td><td>[facility]</td><td>08/16/2020</td><td>9:59AM</td><td>10:38AM</td><td></td> Attender: Vianey Reis MD [facility], [place] 08/16/2020 09:59:00 A M EDT - 08/16/2020 10:38:52 AM EDT [facility] ([facility]) Outpatient Attender: Vianey Reis MD 08/11/2020 11 :05:00 AM EDT DATING/Z3A.09 [facility] DATING/Z3A.09 Outpatient Attender: Vianey Reis MD 08/09/2020 08:15:[address] [facility] R30.0 Outpatient<td ID="encounterTypeDescripti onID2">nursing visit</td><td>Vianey Reis MD</td><td>[facility]</td><td>08/09/2020</td><td>8:08AM</td><td>8:19AM</td><td></td> Attender: Vianey Reis MD [facility] 08/09/2020 08:08:00 A M EDT - 08/09/2020 08:19:17 AM EDT ERMA ([facility]) Outpatient Attender: Aubree CHRISTIANSEN 07/05/2020 10:50:[address] [facility] N91.2 Outpatient Attender: Greg Trejo NP 02:35:00 PM EST - 07/02/2020 02:35:00 PM EST [facility] Outpatient Attender: Greg Trejo NP [facility] 01:30:00 PM EST [facility] Outpatient<td ID="encounterTypeDescripti onID4">Ambulatory Procedure</td><td>Aubree Larkin [facility]</td><td>[facility]</td><td>06/07/2020</td><td>11:26AM</td><td>11:55AM</td><td><content ID="encounterDiagnosisID4-0">Dysplastic Nevus</content></td> Attender: Aubree CHRISTIANSEN [facility] 06/07/2020 11:26:00 A M EST - 06/07/2020 11:55:00 AM EST Dysplastic NevusDysplastic NevusDysplast ic NevusDysplastic Nevus ER[facility] ([facility]) Dysplastic Nevus Dysplastic Nevus Dysplastic Nevus Dysplastic Nevus <td ID="encounterTypeDescriptionID3">Lab Requistion- medicinal plant picker in office</td><td>Vianey Reis MD</td><td></td><td>07/04/2020</td><td>06/07/2020 8:58AM</td><td>06/07/2020 11:59PM</td><td></td>Outpatient Attender: Vianey Reis MD 06/07/2020 08:58:00 AM EST - 06/07/2020 11:59:00 PM EST [place] ([facility]) Outpatient Attender: Vianey Reis MD 05/31/2020 07 :30:00 PM EST DYSPLASTIC NEVUS [facility] DYSPLASTIC NEVUS Outpatient<td ID="encounterTypeDescripti onID5">Ambulatory Procedure</td><td>Vianey Reis MD</td><td>[facility]</td><td>05/31/2020</td><td>9:55AM</td><td>10:48AM</td><td><content ID="encounterDiagnosisID5-0">Visit For: Contraceptive Management</content>, <content ID="encounterDiagnosisID5-1">Dysplastic Nevus</content>, <content ID="encounterDiagnosisID5-2">Signs and Symptoms in Breast</content></td> Attender: Vianey Reis MD [facility] 05/31/2020 09:55:00 AM EST - 05/31/2020 10:48:00 AM EST Signs and Symptoms in BreastDysplastic NevusVisit For: Contraceptive ManagementSigns and Symptoms in BreastDysplastic NevusVisit For: Contraceptive ManagementSigns and Symptoms in BreastDysplastic NevusVisit For: Contraceptive ManagementSigns and Symptoms in BreastDysplastic NevusVisit For: Contraceptive Management [place] ([facility]) Signs and Symptoms in Breast Dysplastic Nevus Visit For: Contraceptive Management Signs and Symptoms in Breast Dysplastic Nevus Visit For: Contraceptive Management Signs and Symptoms in Breast Dysplastic Nevus Visit For: Contraceptive Management Signs and Symptoms in Breast Dysplastic Nevus Visit For: Contraceptive Management Emergency Attender: Tre Esquivel MD 10:03:00 AM EST - 04/02/2020 01:51:00 PM EST R/O COVID [facility] R/O COVID Patient discharged. Outpatient<td ID="encounterTypeDescripti onID6">ANNUAL PE-followup exam</td><td>Aubree Larkin RPA</td><td>[facility]</td><td>03/10/2020</td><td>2:58PM</td><td>3:59PM</td><td><content ID="encounterDiagnosisID6-0">Routine History and Physical Adult (18 - 64 Yrs)</content>, <content ID="encounterDiagnosisID6-1">Skin Neoplasm Uncertain Behavior</content>, <content ID="encounterDiagnosisID6-2">Acrochordon</content></td> Attender: Aubree CHRISTIANSEN [facility] 03/10/2020 02:58:00 P M EDT - 03/10/2020 03:59:00 PM EDT AcrochordonSkin Neoplasm Uncertain Behav iorRoutine History and Physical Adult (18 - 64 Yrs)AcrochordonSkin Neoplasm Uncertain BehaviorRoutine History and Physical Adult (18 - 64 Yrs)AcrochordonSkin Neoplasm Uncertain BehaviorRoutine History and Physical Adult (18 - 64 Yrs)AcrochordonSkin Neoplasm Uncertain BehaviorRoutine History and Physical Adult (18 - 64 Yrs)AcrochordonSkin Neoplasm Uncertain BehaviorRoutine History and Physical Adult (18 - 64 Yrs) [facility] ([facility]) Acrochordon Skin Neoplasm Uncertain Behavior Routine History and Physical Adult (18 - 64 Yrs) Acrochordon Skin Neoplasm Uncertain Behavior Routine History and Physical Adult (18 - 64 Yrs) Acrochordon Skin Neoplasm Uncertain Behavior Routine History and Physical Adult (18 - 64 Yrs) Acrochordon Skin Neoplasm Uncertain Behavior Routine History and Physical Adult (18 - 64 Yrs) Acrochordon Skin Neoplasm Uncertain Behavior Routine History and Physical Adult (18 - 64 Yrs) Immunizations Vaccine Date Status Description Data Source(s) Tdap 01/10/2021 04:37:00 PM EDT completed e CW1 ([facility]) Tdap 01/10/2021 04:37:00 PM EDT completed e CW1 ([facility]) Tdap 01/10/2021 04:37:00 PM EDT completed e CW1 ([facility]) Tdap 01/10/2021 04:37:00 PM EDT completed e CW1 ([facility]) Tdap 01/10/2021 04:37:00 PM EDT completed e CW1 ([facility]) Tdap 01/10/2021 04:37:00 PM EDT completed e CW1 ([facility]) Tdap 01/10/2021 04:37:00 PM EDT completed e CW1 ([facility]) Tdap 01/10/2021 04:37:00 PM EDT completed e CW1 ([facility]) 12/26/2020 04:04:00 PM EDT completed e CW1 ([facility]) 12/26/2020 04:04:00 PM EDT completed e CW1 ([facility]) 12/26/2020 04:04:00 PM EDT completed e CW1 ([facility]) 12/26/2020 04:04:00 PM EDT completed e CW1 ([facility]) 12/26/2020 04:04:00 PM EDT completed e CW1 ([facility]) 12/26/2020 04:04:00 PM EDT completed e CW1 ([facility]) 12/26/2020 04:04:00 PM EDT completed e CW1 ([facility]) 12/26/2020 04:04:00 PM EDT completed e CW1 ([facility]) 12/26/2020 04:04:00 PM EDT completed e CW1 ([facility]) Medications Medication Brand Name Start Date Product Form Dose Route Admi nistrative Instructions Pharmacy Instructions Status Indications Reaction Description Data Source(s) labetalol (TRANDATE) injection 20 mg [id number] 01/14/2021 05:36: 08 PM EDT 20 mg Intravenous active 20 mg, I ntravenous, Once PRN, High Blood Pressure, >160/110, Starting on 01/14/21 at 1736, For 1 dose
Dilute in 25- 50 mL normal saline. Administer over 30 minutes.
[facility] Medication administered onsite Cephalexin 250 MG Oral Capsule Cephalexin 250 MG Oral Capsul e 08/16/2020 12:00:00 AM EDT 1 active cephalex in 250 MG Oral Capsule [facility] ([facility]) Cephalexin 500 MG Oral Capsule Cephalexin 500 MG Oral Capsul e 08/15/2020 12:00:00 AM EDT 1 active cephalex in 500 MG Oral Capsule [facility] ([facility]) Cephalexin 500 MG Oral Capsule Cephalexin 500 MG Oral Capsul e 08/15/2020 12:00:00 AM EDT 1 aborted cephale merle 500 MG Oral Capsule [facility] ([facility]) NITROFURANTOIN, MACROCRYSTALS 25 MG / Ni trofurantoin, Monohydrate 75 MG Oral Capsule Nitrofurantoin Monohyd Macro 100 MG Oral Capsule Nitrofurantoin Monohyd Macro 100 MG Oral Capsule 08/09/2020 12:00:00 AM EDT 1 completed nitrofurantoin, macrocrystals 25 MG / nitrofurantoin, monohydrate 75 MG Oral Capsule [facility] ([facility]) 100 mg 08/09/2020 12:00:00 AM EDT capsule 14 TAKE ONE CAPSULE BY MOUTH TWICE A DAY TAKE ONE CAPSULE BY MOUTH TWICE A DAY SOLD: 08/09/2020 [facility] 100 mg 07/02/2020 12:00:00 AM EST capsule 14 TAKE ONE CAPSULE BY MOUTH TWICE A DAY FOR 7 DAYS TAKE ONE CAPSULE BY MOUTH TWICE A DAY FOR 7 DAYS SOLD: 07/04/2020 [facility] NITROFURANTOIN, MACROCRYSTALS 25 MG / Ni trofurantoin, Monohydrate 75 MG Oral Capsule Nitrofurantoin Monohyd Macro 07/02/2020 12:00:00 AM EST ORAL active [facility] ([facility]) No Active Medications 07/02/2020 12:00:00 AM EST completed [facility] ([facility]) Azithromycin 250 MG Oral Tablet Azithromycin (Zithroma x Z-Alex) 250 mg tablet Azithromycin (Zithromax Z-Alex) 250 mg tablet 04/02/2020 01:32:02 PM EST 250 MG active [facility] Cephalexin 500 MG Oral Capsule Cephalexin 500MG Oral C apsule Cephalexin 500MG Oral Capsule 05/15/2019 12:00:00 AM EST 1 abort ed cephalexin 500 MG Oral Capsule [facility] ([facility]) Etonogestrel 68 MG Drug Implant [Nexplanon] Nexplanon 68MG Subcutaneous Implant Nexplanon 68MG Subcutaneous Implant 03/06/2019 12:00:00 AM EDT aborted etonogestrel 68 MG Drug Implant [Nexplanon] [place] ([facility]) Acetaminophen 325 MG / butalbital 50 MG / Caffeine 40 MG Oral Capsule Lswcuepgug-JMXR-Jjszowee 50-325-40MG Oral Capsule Irahggoovj-ASBO-Zinyqvcr 50-325-40MG Oral Capsule 06/18/2018 12:00:00 AM EST aborted acetaminophen 325 MG / butalbital 50 MG / caffeine 40 MG Oral Capsule [place] ([facility]) PNV-DHA 27-0.6-0.4-300MG Oral Capsule PNV-DHA 27-0.6-0.4-300 MG Oral Capsule 05/21/2018 12:00:00 AM EST 1 aborted PNV-DHA [place] ([facility]) Insurance Providers Payer name Policy type / Coverage type Policy ID Covered democrat ID Covered democrat's relationship to higgins Policy Higgins Plan Information BCBS of [facility] Other 0 [id number] Family Dependent Venita Cummings 0 BCBS of [place] [place] Other 0 [id number] Family Dependent Venita Cummings 0 BCBS of [place] [facility] [place] Other 0 [id number] Family Dependent Venita Cummings 0 BCBS of [facility] [place] Other 0 [id number] Family Dependent Venita Cummings 0 BCBS of [facility] [place] Other 0 [id number] Family Dependent Venita Cummings 0 BCBS of [place] [place] Other 0 [id number] Family Dependent Venita Cummings 0 BCBS of [place] [facility] [place] Other 0 [id number] Family Dependent Venita Cummings 0 BCBS of [place] [place] Other 0 [id number] Family Dependent Venita Cummings 0 BCBS of [place] [facility] [place] Other 0 [id number] Family Dependent Venita Cummings 0 BCBS of [place] [facility] [place] Other 0 [id number] Family Dependent Venita Cummings 0 BCBS of [facility] [place] Other 0 [id number] Family Dependent Venita Pickensonnell 0 BCBS of [place] [place] Other 0 [id number] Family Dependent Venita Pickensonnell 0 BCBS of [place] [place] Other 0 [id number] Family Dependent Venita Pickensonnell 0 BCBS of [place] [place] Other 0 [id number] Family Dependent Venita Pickensonnell 0 BCBS of [facility] [place] Other 0 [id number] Family Dependent Venita Pickensonnell 0 BCBS of [facility] [place] Other 0 [id number] Family Dependent Venita Pickensonnell 0 BC[employer] of [facility] [place] Other 0 [id number] Family Dependent Venita Pickensonnell 0 BCBS of [facility] [place] Other 0 [id number] Family Dependent Venita Pickensonnell 0 BCBS of [facility] [place] Other 0 [id number] Family Dependent Venita Pickensonnell 0 BCBS of [facility] [place] Other 0 [id number] Family Dependent Venita Pickensonnell 0 BCBS of [facility] [place] Other 0 [id number] Family Dependent Venita Pickensonnell 0 BCBS of [facility] [place] Other 0 [id number] Family Dependent Venita Pickensonnell 0 BCBS of [facility] [place] Other 0 [id number] Family Dependent Venita Pickensonnell 0 BCBS of [facility] [place] Other 0 [id number] Family Dependent Venita Pickensonnell 0 BCBS of [facility] [place] Other 0 [id number] Family Dependent Venita Pickensonnell 0 BCBS of [place] [place] Other 0 [id number] Family Dependent Venita Pickensonnell 0 EMPIRE PLAN [facility] [id number] Spouse [id number] COUNTS INCLUDE 234 BEDS AT [facility] U [id number] Self [id number] BCBS EMPIRE FRANKIE DIV [id number] [facility] COMMUNITY PLAN [facility] [id number] SP [id number] [employer] Other 0 [id number] Self 0 UnitedHealth[employer] Other 0 [id number] Self 0 UnitedHealth[employer] Other 0 [id number] Self 0 UnitedHealthcare Other 0 [id number] Self 0 UNITED HEALTHCARE [id number] SP [id number] EXCELLUS BLUE CROSS BLUE SHIELD HEA [id number] SP [id number] BCBS EMPIRE FRANKIE DIV [id number] UNHC COMMUNITY PLAN MCDHMO [id number] SP [id number] [facility] EMPIRE PLAN HM UNAVAILABLE 01 UN AVAILABLE United[employer] Other 0 [id number] Self 0 UnitedHealth[employer] Other 0 [id number] Self 0 UnitedHealth[employer] Other 0 [id number] Self 0 UnitedHealth[employer] Other 0 [id number] Self 0 UnitedHealth[employer] Other 0 [id number] Self 0 UnitedHealth[employer] Other 0 [id number] Self 0 United[employer] Other 0 [id number] Self 0 BCBS [id number] Blue Cross/Bl ue Shield [id number] EXCELLUS BCBS B [id number] C [id number] United[employer] Other 0 [id number] Self 0 BCBS EMPIRE FRANKIE DIV [id number] SP [id number] UnitedHealthcare Other 0 [id number] Self 0 BCBS [place] PPO 302/[id number] UNITED HEALTHCARE [id number] Problems, Conditions, and Diagnoses Code Display Name Description Problem Type Effective Dates Data Source(s) In Labor In Labor Diagnosis 01/14/2021 04:55:00 PM ED [facility] D68.51 [id number] Factor V Leiden Problem 11/02/2020 12:00:00 AM EDT eCW1 ([facility]) 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, unspecified Problem 10/04/2020 12:00:00 AM EDT eCW1 ([facility]) G43.909 Migraine Migraine Problem 10/04/2020 12:00:00 AM ED T eCW1 ([facility]) K58.9 Irritable bowel syndrome Irritable bowel syndrome Prob bernard 10/04/2020 12:00:00 AM EDT eCW1 ([facility]) Z34.80 care Supervision of other normal P roblem 10/03/2020 12:00:00 AM EDT eCW1 ([facility]) 16725 Finding 05/31/2020 12:00:00 AM ES Aggie RITCH[place] ([facility]) [id number] Family history with explicit context per taining to mother (situation) Maternal Blood Type Rh- Problem 05/31/2020 12:00:00 AM EST [facility] ([facility]) 84607 Finding 05/31/2020 12:00:00 AM ES Aggie RITCH[place] ([facility]) [id number] Family history with explicit context per taining to mother (situation) Maternal Blood Type Rh- Problem 05/31/2020 12:00:00 AM EST [facility] ([facility]) 42695 Finding 05/31/2020 12:00:00 AM ES Aggie ERMA ([facility]) [id number] Family history with explicit context per taining to mother (situation) Maternal Blood Type Rh- Problem 05/31/2020 12:00:00 AM EST [facility] ([facility]) 49470 Finding 05/31/2020 12:00:00 AM ES Aggie RITCHIE ([facility]) [id number] Family history with explicit context per taining to mother (situation) Maternal Blood Type Rh- Problem 05/31/2020 12:00:00 AM EST [facility] ([facility]) Surgeries/Procedures Procedure Description Date Indications Data Source(s) BLOOD COUNT COMPLETE AUTO&AUTO DIFRNTL WBC COUNT <td>C BC AND DIFFERENTIAL</td><td>Routine</td><td>01/14/2021 6:05 PM EDT</td><td></td><td> </td> 01/14/2021 06:05:00 PM [facility] URIC ACID BLOOD <td>URIC ACID</td><td>Routin e</td><td>01/14/2021 6:05 PM EDT</td><td></td><td> </td> 01/14/2021 06:05:00 PM [facility] LACTATE DEHYDROGENASE LDH <td>LACTATE DEHYDROGENASE</td><td>Routine</td><td>01/14/2021 6:05 PM EDT</td><td></td><td> </td> 01/14/2021 06:05:00 PM [facility] COMPREHENSIVE METABOLIC PANEL <td>COMPREHENSIVE METABO LIC PANEL</td><td>STAT</td><td>01/14/2021 6:05 PM EDT</td><td></td><td> </td> 01/14/2021 06:05:00 PM [facility] TDAP VACCINE 7/> YR IM 01/10/2021 12:00:00 AM EDT [facility] ([facility]) Inj: RhoGAM 300mcg/1.5mL IM Rho D Immune Globulin Human 12/26/2020 12:00:00 AM EDT [facility] ([facility]) NO CHARGE- Nurse visit- OB establish NO CHARGE- Nurse visit- OB establish 08/16/2020 12:00:00 AM [facility] ([facility]) Urinalysis w/o Microscopy Urinalysis w/o Microscopy 08/09/2020 1 2:00:00 AM [facility] ([facility]) no charge procedure no charge procedure 06/07/2020 12:00:00 AM [facility] ([facility]) REMOVAL NON-BIODEGRADABLE DRUG DELIVERY IMPLANT Remova l, non biodegradable implant (NEXPLANON) (Distinct Seperate service-same day) 05/31/2020 12:00:00 AM [facility] ([facility]) Excision Benign Lesion .5 cm or less (trunk, arms, l egs) Excision Benign Lesion .5 cm or less (trunk, arms, legs) 05/31/2020 12:00:00 AM [facility] ([facility]) Plain chest X-ray (procedure) 04/02/2020 12:30:00 PM E [facility] Bacterial antigen assay (procedure) 04/02/2020 12:00:0 0 AM [facility] Streptococcus Rapid Screen 04/02/2020 12:00:00 AM [facility] History of surgery (situation) Prior surgery c-sectio n, unresponsive to anesthesia 03/10/2020 12:00:00 AM EDT [place] ([facility]) Results ID Date Data Source GROUP B STREP CULTURE 02/07/2021 12:00:00 AM EDT [facility] ([facility]) Name Value Range Interpretation Code Description Data Bria rce(s) Supporting Document(s) GROUP B STREP CULTURE eCW1 ([facility]) ID Date Data Source [id number] 01/16/2021 08:26:11 AM EDT [facility] Name Value Range Interpretation Code Description Data Bria rce(s) Supporting Document(s) Consultation [facility] QQKZQy5mMvIONoIo10/YPPmcDMYyx9PsMIgdJAg6LCwlGAMsE4ZsCIB6gK0xYIH4CEeHSfAoZwXxTHUr [facility] [file] STARCH COOKER+Qf7FKIMuMG8PrXFFN9NovEWlRTpaS1OXYW1ETQS5EZ4YkFPeVJ9OnUOXN4RkzALkKn9kJJPzc5Dv Ni4kA5NMXYOUBCUmREplPRodUUXzSXd4C2E0CARmD5DQW627wJRliSy3Ru3pI3SWMIfOFlJpQXtkESvj SDUsJXg2I5H2VDDiN6OJZ2KyPxVodlUfJ3A+PiAvUE MDFB5GZRFNHUs8E1G9pFCjT3O6fQuSlQK8DT9ZVQ7PhRMbbWLaz35+ZvSLMsVnGAZcE6YSIBTYBnKeBT rqOBkeBLUtVNj2M9M1YPMnD8VXQ2gdF4x9MR1+GyCUZxBsGBEdHi4RQoRtUn3VLhJwIX4hvc5KFWUtOD YtFhrORzp3J0bskty6mLMtFaB7A9T7FaY8lQHcUC1G M6B1oKMqFPB1XFJgoCO+Pc1Ir3PdXMPdSUh9Q7rzACLhDLUpWaLxxQ77X++0kknykSG8G9z2RONSoACv wJaYdqKyR2qKHWM7p4X8XIp/Jb3XOWE3jHn0tCOiNIIyVQn4rN5lpGd6LhOjGI52YHOxVOfjnB1cNqy0 I5Ves8LfDr8dAe8niSZtTi4FXpPiMJL7kqBuWxCFRe X3qVrkvcmkWXC2S2z6jEQ0Bd26p3yuzkBaz0KaZyA8NVtuSACnHxCcsvPrGFB4reVlrC6eonMaUk5IBQ QjWNnvkxZhFqINTc9VZpGjEZ33DhafrS9ycCV+DQogICAgICAgICAgICAgICAgICAgICAgICAgICAgIC AgICAgICAgICAgICAgICAgICAgICAgICAgICAgICAg ICAgICAgICAgICAgICAgICAgICAgICAgICAgICAgICAgICAgICAgDQogICAgICAgICAgICAgICAgICAg ICAgICAgICAgICAgICAgICAgICAgICAgICAgICAgICAgICAgICAgICAgICAgICAgICAgICAgICAgICAg ICAgICAgICAgICAgICAgICAgICAgDQogICAgICAgIC AgICAgICAgICAgICAgICAgICAgICAgICAgICAgICAgICAgICAgICAgICAgICAgICAgICAgICAgICAgIC AgICAgICAgICAgICAgICAgICAgICAgICAgICAgICAgDQogICAgICAgICAgICAgICAgICAgICAgICAgIC AgICAgICAgICAgICAgICAgICAgICAgICAgICAgICAg ICAgICAgICAgICAgICAgICAgICAgICAgICAgICAgICAgICAgICAgICAgDQogICAgICAgICAgICAgICAg ICAgICAgICAgICAgICAgICAgICAgICAgICAgICAgICAgICAgICAgICAgICAgICAgICAgICAgICAgICAg ICAgICAgICAgICAgICAgICAgICAgICAgDQogICAgIC AgICAgICAgICAgICAgICAgICAgICAgICAgICAgICAgICAgICAgICAgICAgICAgICAgICAgICAgICAgIC AgICAgICAgICAgICAgICAgICAgICAgICAgICAgICAgICAgDQogICAgICAgICAgICAgICAgICAgICAgIC AgICAgICAgICAgICAgICAgICAgICAgICAgICAgICAg ICAgICAgICAgICAgICAgICAgICAgICAgICAgICAgICAgICAgICAgICAgICAgDQogICAgICAgICAgICAg ICAgICAgICAgICAgICAgICAgICAgICAgICAgICAgICAgICAgICAgICAgICAgICAgICAgICAgICAgICAg ICAgICAgICAgICAgICAgICAgICAgICAgICAgDQogIC AgICAgICAgICAgICAgICAgICAgICAgICAgICAgICAgICAgICAgICAgICAgICAgICAgICAgICAgICAgIC AgICAgICAgICAgICAgICAgICAgICAgICAgICAgICAgICAgICAgDQogICAgICAgICAgICAgICAgICAgIC AgICAgICAgICAgICAgICAgICAgICAgICAgICAgICAg SYNwSQAxEYDkBADxTTGuMXTjNZHfTFQuYHOcJQZsNHXuULZaXDBgPRGqRBCqSSZqDFa4D6dlPVUvIDCk TQ3lLOg7Bm4+MFsXNxMoJIN2zkCbqE4DEY6rd3SmJHtmGOKyo9MoLXk4BO7HDFQkFSulMM5JVLikew9M GOEeGTRslCHXa8lfXuSnEVB9JGFvHvktRT7VFMOoM2 rmzkBfWWLbZHHPGQ5VPsYqF8LjlK80TZVVCf4+MGuzueZqOroDQwP2TYMhz6EuREg0JY3LTTUlBkpzk0 GwWKhyMMZOXOngSP7FDYN0HVH4OKXgEm0NGCUyE556lxQtZM0ZOn0QUvIfDS6jcn2DLTlrWYGiLdbJMz w7FZneRW1UxUAjLQmOv54anKq5kqZyjSHOUOWjLPGv euXuFxPVcpBqAGknEJQlTFEmTM0qPY1eHGUfMPH9MmL4GGVZAT7GCWQpLBOlbUWnAOKbBRRQYH2DIRih ZRG1YTKmiwBcpQAsMWwjRX5QZTZcjuMsFDhdMBIGRXm+Yv3ZQC9im2MbHBojREIeGX1pdu2VFTaGAzPj M3R1vKOgK5L9OYkpDt0JWWTfSKQmNOVpJAKOEJqtFN 2AHN0dfkB7ER3NtQMkRPLjVMDzpVWkGPf8R03wjQBbNOvdEO7URBE+Ling+Ao8ATQIiMFHqLVDiXfXgXS BJQwZgX7RbW8TCa4QzL8NwDZ36mRztclFpQEudSN5MMW2hSUAgUJMADP1GqWFblN8ljnQaMxEiAQXIVt JgX97tgALxULHhXRJ5YXXkBl8BKYPoG0OiclNzbFly bwEbTNJmFMYFIM7JARgmtoUccHZcyVxjNM94mKipUY1MQt6UFaOrPK4qsq0WsGKyAx3DSYZiRM0MXRRm YEAqWVGbLUV9OVQuLhMiGFtoOCCgHRTtGYZ4MFElIBHwDG1ASaXnFAEmBZb6ZYAaZXXqZWDdnv7MQAYg AVGuGHJ9OnIcGJVxSRIwZUpzLAHuTYOsHBP2VWVxRT RjZH0JZyRcHGPmKQTbWBUoUKLlUPWdmf8YFYYsCPNgQhU6ZHJlTPSaHDRiYMurZVLdCXB6EiQ9YHXvPM PxUG1EFvUyZWWjJKZ7ETTyTAOfXWArcn1WYJLeJMBnPSlzWnUgCCMnRVFcZNjwMSDqGOX3MukuFWObYK PhSV5TDoRpKSZmCDW6TRBtQZLeKXTinj9ASFOrKMBu HmZ9IYEnIHGyMPYtZYoaBEAsYTJ2URKgFYPqMTSeVC9MAyPpJOHcGHcnMuqvPQVoUWSnzs2CLNErMTVu ClWtOSQuEJJcTUZkUFrsPLKxOHD6BGXaLFGjNEBtBG9VEmVyZHUkMRqqQUWqAUIiZTOjca6WWSGhBSRb LOM1DFFwHGFtYDUwSBaaOEBlYHF4JKt4TOCbMLTcIW 7UZbOjSMsmNZHHVvh8PHczV7d8YUIyOH5SW3Dik8NtPOsyUWCVUVvrNB9jlyPhZKLfAl1JL3aLKctiEQ v5HCtpHkKsYTX3USO4WvBaMEMzXiDuElE3DzUaVN8qMVLuFJq8LEDlNOZ8Okg5UGSgPIZfB2S4MsOiNs V0SpHiTqWpEP8FNg0HGbD7TQD6uNLuNf0AFAf4RC9JABFLG9RNTi== ID Date Data Source [id number] 01/15/2021 04:04:12 PM EDT [facility] Name Value Range Interpretation Code Description Data Bria rce(s) Supporting Document(s) ED Provider Note [facility] HHZHHq9eGtGHHfVa49/DFRndAXQmm6IjUVblFYo1YXswZFJlV7ExYBS5aE6zTTF4OVyAIdMdGiUqFHH2 lbm [file] xeVN/attendant child activity/8iUgJC3uku80BM8gqrbMhbHEYtbM6DVpPWeUXt79j8dVw6RfoEKsMEr5+XNod9lP8wm3Is9i [file] naCO6OCNG+Ling+Fe2KMDChGIKbXGRrIpJdXKIJSkUcC7AaU6UBq3LaV3TnWH62iXdwdhMkSSrkQV8BHO 9yAEDdLBKIAA9RsFEjaT2pjnE7CdRkJKVBIvJjK37p rWBcSSXqKEI5XXEjHx7XKHCkP8LakqLktVeqbeBtSAVvSWWVLW6PVKinzfTqyLIjcBrhEZ61oDtfAI1V Aj0MHlFaMN7uit1UaVFgMc6VGAO9Hr8PNPHzNKUdNRWbHQU2KBSrWdQeVJqbMJPnXZBkGPU5ZVAcBIPv JI3WNmOpLTXpQTG5VDPgENKeRGZytf8DOTXhMVT3Vm R8XPWlNPVpKDWqSGwtZCVmFXNwTTW2VJXyQEZoIZ4PTmWvDBXfCRGmCmCgQUQxIEJinl9SYLTkRRWkRg K3WXKsMKMdFXIePArsKUOwCTP7HRQpYPUdLFFzVF0ZWdLtQGZpYRNeBdneOWZfKSZpsv5WOKYlUHGhQR h8KtBwAATfTJFrBRioZHQqLDE7BHalKRXjDEMpDT1Y LaKoXODqBYQxLbnfDLFnUNLxmh7AZVWfIJIlPfVjWbLaNBRhOAAbBEudBKJbAHY9XCGcAVWiLJDhAO0V QcQmIBZcOWYuIRwfXBMkOTLakr2PHEGfADAzTtr2LyTkQSWcDXDaCMdzNDXnWXC5QMl1QUFhFUHuPD3J HiQqXJQcYxAcCnExPMIrWHHfse3JYOIgJQImUKT5GI WyBBNlRSDwFKimPILdLSC8SLDuSVLsXLVdHP0RGyClKYUaDrZeTodkOKIuULZxjc8MSFAiFUDiHzu3Eh JgDEQcNLGiRFltHDVtEIL6GMFkSIXfQBUbSE0MVrXjXWNbRzi0VFPeAUOdSICpvk2FRAHxLWBvUOY7Eq GwKAIoEPGiDCvuSGLtWCYsSHS0UZWuWWUbVY7UBoDi NXZfOwIlBdXpUSBgLKZvcr4JPNPxPIWrJjPwBbMlPPTyHMJhGGssCJWfBAWuSnHdXFAeSSTbJH0OWqLn VPMeJfZ5YIEcSTGtMHZofv7UVXQbGLRbFKh7FVReKUKpMOStAUnzYMMbPTN7VXoaQBZuDLHpTP6ZYkWs OEXoYxWdWQJmHHCdWKFrhf1UTHJcSGGtBxW4PqYqGE XhBEWlBPakRBAbVCO7LOVhGBRtPIZlBT5AJbGqBIFcCkptFTUqCESsKPOclu5HMXOcOXYiQfM1DWPiVC CjKKRmTJsoRPQmSFI4ZyczCQJuZNCgHV4UFqFiITVzMYhgSAOuZZVyVFLqwf2YRWQbGCR3OWZ3LJDmEF WkYQHtMBbeMUKkFWY1JpzfGWDeAMQwLO5KJiYmSUMy CBl1EeMiDTFyIWLoti4QBVUeLKJ1RHK1YWHgUTJrAGMwFVgeVSRmWGUuBFMrUDGrUMAkVQ3MLfVoBZHz YBDlBUGuFWQdUPYcvb3LNSUfCDC7EPE1CNJtWLUfTALvZStxAPDdRFEiDGWtELHcJISmDU9FXxJqWQUy LKBuXzXtKJCwUOEdzb9MCXBlXXH2MkI4WdVpZGGpGX VnMYicVJWkUQEyYkBsYKGwWPKvWA9WZfTgVOMlBVO0CEOpVMScCZAwzh5SQLXiISG3ClbbSuCgQOYrIP JyYZcaEEHiQJQ0ZNC2CEQeREHxBX3JOgCjHBzvPCPMFec1YSfyW5a1BRK1Ur3MB7Unt1DcBGFdCFEZRD ryNV4wbqUyMRQoFg9MB2sOIcdiWEEbOHV1YbfyPSpy KvGbKrJfVIyfSvY5UKJhRVVtDa6aQMKmQeLjKvErDxF9QMZyCZErZKBxBdZwFYz5AmC3YuMsNrEuOM2G Tc6WKaF2RTD7xQMpGv2AWSUxTYgICeBaWH3NFPg= ID Date Data Source [id number] 01/14/2021 08:01:28 PM EDT [facility] Name Value Range Interpretation Code Description Data Bria rce(s) Supporting Document(s) URINE WBC (0-5) [facility] URINE RBC (0-2) [facility] EPITHELIAL CELLS 2+ [HPF] [facility] BACTERIA 1+ [HPF] [facility] CAOX CRYSTALS 2+ [HPF] [facility] ID Date Data Source [id number] 01/14/2021 07:46:11 PM EDT [facility] Name Value Range Interpretation Code Description Data Bria rce(s) Supporting Document(s) COLOR [facility] PERFORMED AT [address] [place] [address] APPEARANCE [facility] SPEC GRAV URINE 1.023 (1.003-1.030) [facility] PH URINE 6.0 (5.0-7.5) [facility] LEUK ESTERASE (NEG) [facility] CRITERIA FOR CULTURE NOT MET.CULTURE CAN BE ADDED WITHIN 36 HOURS OFCOLLECTION. NITRITE URINE (NEG) [facility] PROTEIN URINE (NEG) A [facility] GLUCOSE URINE (NEG) A [facility] KETONE URINE (NEG) A [facility] UROBILINOGEN 0.2 mg/dL (0-1.0) [facility] BILIRUBIN URINE (NEG) [facility] BLOOD/HGB URINE (NEG) [facility] ID Date Data Source [id number] 01/14/2021 06:26:03 PM EDT [facility] Name Value Range Interpretation Code Description Data Bria rce(s) Supporting Document(s) Leukocytes [#/volume] in Blood by Automated count 10.5 10*3/uL 4-10 [facility] Erythrocytes [#/volume] in Blood by Automated count 4.38 10*6/uL 4.1- 5.3 [facility] Hemoglobin [Mass/volume] in Blood 13.6 g/dL 11.5-15.5 [facility] Hematocrit [Volume Fraction] of Blood by Automated count 39.4 % 3 6-45 [facility] Erythrocyte mean corpuscular volume [Entitic volume] by Auto mated count 90.0 fL 80-96 [facility] Erythrocyte mean corpuscular hemoglobin [Entitic mass] by Automated count 31.1 pg 27-33 [facility] Erythrocyte mean corpuscular hemoglobin concentration [Mass/volume] by Automated count 34.6 g/dL 32.0-36.0 [facility] distribution width [Ratio] by Automated count 13.5 % 11.5-14.5 [facility] Platelets [#/volume] in Blood by Automated count 267 10*3/uL 150-400 [facility] Differential cell count method - Blood [facility] Neutrophils/100 leukocytes in Blood by Automated count 74 % [facility] Lymphocytes/100 leukocytes in Blood by Automated count 20 % [facility] Monocytes/100 leukocytes in Blood by Automated count 4 % [facility] Eosinophils/100 leukocytes in Blood by Automated count 2 % [facility] Basophils/100 leukocytes in Blood by Automated count 0 % [facility] Neutrophils [#/volume] in Blood by Automated count 7.80 10*3/uL 1.8-7 .0 H [facility] Lymphocytes [#/volume] in Blood by Automated count 2.13 10*3/uL 1.2-4 .0 [facility] Monocytes [#/volume] in Blood by Automated count 0.41 10*3/uL 0-0.8 [facility] Eosinophils [#/volume] in Blood by Automated count 0.16 10*3/uL 0-0.5 [facility] Basophils [#/volume] in Blood by Automated count 0.03 10*3/uL 0-0.2 [facility] Nucleated erythrocytes/100 leukocytes [Ratio] in Blood by Automated count 0 /100{WBCs} 0-0 [facility] ID Date Data Source [id number] 01/14/2021 07:08:27 PM EDT [facility] Name Value Range Interpretation Code Description Data Bria rce(s) Supporting Document(s) Lactate dehydrogenase [Enzymatic activit y/volume] in Serum or Plasma by Lactate to pyruvate reaction 197 U/L 122-214 [facility] ID Date Data Source [id number] 01/14/2021 07:08:27 PM EDT [facility] Name Value Range Interpretation Code Description Data Bria rce(s) Supporting Document(s) Albumin [Mass/volume] in Serum or Plasma by Bromocresol green (BCG) dye binding method 4.0 g/dL 3.5-5.2 [facility] Bilirubin.total [Mass/volume] in Serum or Plasma 0.2 mg/dL <1.2 [facility] Calcium [Mass/volume] in Serum or Plasma 9.0 mg/dL 8.6-10.0 [facility] Chloride [Moles/volume] in Serum or Plasma 99 mmol/L 98-107 [facility] Creatinine [Mass/volume] in Serum or Plasma 0.57 mg/dL 0.50-0.90 [facility] Glucose [Mass/volume] in Serum or Plasma 117 mg/dL 70-140 [facility] Alkaline phosphatase [Enzymatic activity/volume] in Serum or Plasma 113 U/L 35-104 H [facility] Potassium [Moles/volume] in Serum or Plasma 3.6 mmol/L 3.4-5.1 [facility] Protein [Mass/volume] in Serum or Plasma 6.5 g/dL 6.4-8.3 [facility] Sodium [Moles/volume] in Serum or Plasma 131 mmol/L 136-145 L [facility] Aspartate aminotransferase [Enzymatic activity/volume] in Serum or Plasma 14 U/L <32 [facility] Urea nitrogen [Mass/volume] in Serum or Plasma 7 mg/dL 6-20 [facility] Osmolality of Serum or Plasma by calculation 272 mosm/kg 275-300 L [facility] Creatinine/Urea nitrogen [Mass Ratio] in Serum or Plasma 11 [facility] Bicarbonate [Moles/volume] in Serum 20 mmol/L 22-29 L [facility] Alanine aminotransferase [Enzymatic activity/volume] in Seru m or Plasma 10 U/L <33 [facility] Anion gap 3 in Serum or Plasma 12 mmol/L 8-15 [facility] Glomerular filtration rate/1.73 sq M pre dicted among non-blacks [Volume Rate/Area] in Serum or Plasma by Creatinine-based formula (MDRD) >6 0 [facility] Glomerular filtration rate/1.73 sq M pre dicted among blacks [Volume Rate/Area] in Serum or Plasma by Creatinine-based formula (MDRD) >60 [facility] ID Date Data Source [id number] 01/14/2021 07:08:27 PM EDT [facility] Name Value Range Interpretation Code Description Data Bria rce(s) Supporting Document(s) Urate [Mass/volume] in Serum or Plasma 3.7 mg/dl 2.4-5.7 [facility] ID Date Data Source [id number] 10/20/2020 02:54:00 PM EDT [facility] [address] [place] [address] [phone] NAME SEX PT STATUS ACCOUNT NUMBER KAYDEN CUMMINGS REG REF [id number] ORDERING PHYSICIAN LOCATION MEDICAL RECORD NO. Vianey Reis MD [id number] ATTENDING PHYSICIAN DATE OF DATE OF EXAM/TIME Vianey Reis MD 1995 10/20/20 / 1201 TYPE / EXAM US OB Ultrasound >14 wks REASON FOR EXAM ANATOMY COMPARISON: 08/11/2020 FINDINGS: Gestation: Single Position: Variable Placental Position: Posterior Placental Grade: 2 heart rate: 157bpm Estimated Weight: 376g +/- 56g Estimated Weight Percentile: 56.3% Maximal Vertical Pocket: Adequate VICTORIANO based on first ultrasound: 03/05/2021. Average ultrasound age today: 20 weeks 3 days with VICTORIANO of 03/06/2021. This demonstrates Normal interval growth. Cervix: 5.3 cm. anatomy: The stomach, bladder, kidneys, four-chamber view of the heart, spine, diaphragm, three-vessel cord, cord insertion, orbits, nose, lips, profile, upper extremities and lower extremities are well visualized without acute abnormality. Measurements: BPD: 4.6cm 20weeks 0 days HC: 17.7cm 20weeks 1 days AC: 15.9cm 21weeks 1 days FL: 3.4cm 20weeks 4 days Additional Findings: None IMPRESSION: 1. Single live intrauterine with heart rate of 157bpm. 2. Average ultrasound age today: 20 weeks 3 days with VICTORIANO of 03/05/2021. Reported By Ynes Gallegos MD on 10/20/20 1454 Signed By Ynes Gallegos MD on 10/20/20 1501 Date Time CC: Vianey Reis MD; Ynes Gallegos MD Techn: BUSMI Trans Dt/Tm: Trans by: DT Prt Dt/Tm: : Total DLP = 0.00 mGy-cm : Total Radiation Dose = 0.0000 mSv Lifetime Dose: 13.9050 mSv Name Value Range Interpretation Code Description Data Bria rce(s) Supporting Document(s) ID Date Data Source [id number] 08/24/2020 07:53:[address] [facility] [id number] Technique: BRUSH-SPA TULALA MENSTRUAL PERIOD: [id number] CYTOLOGY: NEGATIVEBody Site: CERVIX Name Value Range Interpretation Code Description Data Bria rce(s) Supporting Document(s) Microscopic observation [Identifier] in Vaginal fluid by Cyt o stain.thin prep [facility] ID Date Data Source [id number] 08/16/2020 05:39:[address] [facility] CT/NG IS A QUALITATIVE IN VITRO REAL-LEIGHANN E PCR TEST FORDETECTION OF CHLAMYDIA TRACHOMATIS (CT) AND NEISSERIAGONORRHOEAE (NG)NORMAL VALUE FOR CT/NG IS " NO ORGANISMS DETECTED "C trach DNA Vag Ql ALEJANDRO+probeN gonorrhoea rRNA Vag Ql ALEJANDRO+probe Name Value Range Interpretation Code Description Data Bria rce(s) Supporting Document(s) ID Date Data Source [id number] 08/16/2020 10:20:00 AM EDT [place] ([facility]) Name Value Range Interpretation Code Description Data Bria rce(s) Supporting Document(s) Reported Physicians See Note Reported Physici ans [place] ([facility]) Note: Reported Physicians:Ordering: Vianey CaceresAttending: Vianey Reis ID Date Data Source [id number] 08/16/2020 10:20:00 AM EDT [place] ([facility]) Name Value Range Interpretation Code Description Data Bria rce(s) Supporting Document(s) Microscopic observation [Identifier] in Vaginal fluid by Cyto stain.thin prep See Note Thin Prep Vag [place] ([facility]) Note: See scanned reportSee scanned repo rtLSee scanned reportResponsible Observer: TP w/HPV if ASC Thinprep w/HPV if ASCUS 805.1454 ([facility]) Notes [TIMP] See Note NOTES [facility] ([facility]) Note: [id number] Technique: BRU SH-SPATULALAST MENSTRUAL PERIOD: [id number] CYTOLOGY: NEGATIVEBody Site: CERVIX ID Date Data Source [id number] 08/16/2020 10:20:00 AM EDT [place] ([facility]) Name Value Range Interpretation Code Description Data Bria rce(s) Supporting Document(s) Reported Physicians See Note Reported Physici ans [place] ([facility]) Note: Reported Physicians:Ordering: Vianey CaceresAttending: Vinaey Reis ID Date Data Source [id number] 08/16/2020 10:20:00 AM EDT [place] ([facility]) Name Value Range Interpretation Code Description Data Bria rce(s) Supporting Document(s) Cepheid CT/NG RT-PCR See Note Cepheid CT/NG R T-PCR [place] ([facility]) Note: CT/NG IS A QUALITATIVE IN VITRO RE AL-TIME PCR TEST FORDETECTION OF CHLAMYDIA TRACHOMATIS (CT) AND NEISSERIAGONORRHOEAE (NG)NORMAL VALUE FOR CT/NG IS " NO ORGANISMS DETECTED "21099-3Z trach DNA Vag Ql ALEJANDRO+probeLNCHLAMNC. trachomatis NOT [id number]. trachomatis NOT [id number] gonorrhoea rRNA Vag Ql ALEJANDRO+probeLNNEIGNN.gonorrhoeae NOT [id number].gonorrhoeae NOT DETECTED ID Date Data Source [id number] 08/11/2020 04:08:00 PM EDT [facility] [address] [place] [address] [phone] NAME SEX PT STATUS ACCOUNT NUMBER KAYDEN CUMMINGS REG REF [id number] ORDERING PHYSICIAN LOCATION MEDICAL RECORD NO. Vianey Reis MD [id number] ATTENDING PHYSICIAN DATE OF DATE OF EXAM/TIME Vianey Reis MD 1995 08/11/20 / 1059 TYPE / EXAM US OB Ultrasound <14 weeks REASON FOR EXAM DATING FINDINGS: Gestation: Single Weimar-rump length: 37.24mm compatible with a 10 week 4 day gestational age. Yolk sac: 3.7 heart rate: 150bpm. Uterus: 13 x 6.5 x 8.3cm. Right ovary: 3.3 x 2.5 x 2.7cm right ovarian cyst is identified measuring 1.48 x 1.80 x 12.15 cm Left ovary: 2.7 x 2.3 x 1.98cm Color flow is identified in both ovaries. Average ultrasound age of 10 weeks 4 days. EDC: 03/07/2021. Weimar-rump length: 37.24mm IMPRESSION: 1. Single live intrauterine with heart rate of 150 bpm. 2. Weimar-rump length compatible with a 10 week 4 day gestational age. Reported By Ynes Gallegos MD on 08/11/20 1608 Signed By Ynes Gallegos MD on 08/11/20 1610 Date Time CC: Vianey Reis MD; Ynes Gallegos MD Techn: CARAI Trans Dt/Tm: Trans by: DT Prt Dt/Tm: 324- 5: Total DLP = 0.00 mGy-cm : Total Radiation Dose = 0.0000 mSv Lifetime Dose: 13.9050 mSv Name Value Range Interpretation Code Description Data Bria rce(s) Supporting Document(s) ID Date Data Source [id number] 08/12/2020 01:00:[address] [facility] 25,000 CFU/MLStaph spp. coag negNormal C ommensal FloraProbable contaminants no senst done @08/11/20 1202: UA W/ MICRO added. RFLXG = UMIC.Method of Collection:: Clean Catch @08/11/20 1202: UA W/ MICRO added. RFLXG = UMIC.Method of Collection:: Clean Catch Name Value Range Interpretation Code Description Data Bria rce(s) Supporting Document(s) ID Date Data Source [id number] 08/15/2020 03:45:[address] [facility] 25,000 CFU/MLStaph spp. coag negNormal C ommensal FloraProbable contaminants no senst done @08/11/20 1202: UA W/ MICRO added. RFLXG = UMIC.Method of Collection:: Clean Catch @08/11/20 1202: UA W/ MICRO added. RFLXG = UMIC.Method of Collection:: Clean Catch Name Value Range Interpretation Code Description Data Bria rce(s) Supporting Document(s) MEDMATCH See scanned report [facility] ID Date Data Source [id number] 08/11/2020 12:22:[address] [facility] 25,000 CFU/MLStaph spp. coag negNormal C ommensal FloraProbable contaminants no senst done @08/11/20 1202: UA W/ MICRO added. RFLXG = UMIC.Method of Collection:: Clean Catch @08/11/20 1202: UA W/ MICRO added. RFLXG = UMIC.Method of Collection:: Clean Catch Name Value Range Interpretation Code Description Data [facility] rce(s) Supporting Document(s) Color of Urine [facility] Appearance of Urine CLEAR Abnormal (applies to non-nu meric results) [facility] pH of Urine by Test strip 6.0 5-8 [facility] Specific gravity of Urine by Refractometry 1.013 1.005-1.030 [facility] Leukocyte esterase [Presence] in Urine by Test strip NEGATIVE Above high normal [facility] @DO MICRO!!!! Nitrite [Presence] in Urine by Test strip NEGATIVE [facility] Protein [Presence] in Urine by Test strip NEGATIVE [facility] Glucose [Mass/volume] in Urine by Automated test strip NEGATIVE NEG ATIVE [facility] Ketones [Presence] in Urine by Test strip NEGATIVE [facility] Urobilinogen [Presence] in Urine 0.2-1 EU/dl [facility] Bilirubin.total [Presence] in Urine by Automated test strip NEGATIVE [facility] Erythrocytes [#/volume] in Urine by Test strip NEGATIVE NEGATIVE [facility] URINE MICROSCOPIC ADDED Microscopic Added [facility] ID Date Data Source [id number] 08/11/2020 12:22:[address] [facility] 25,000 CFU/MLStaph spp. coag negNormal C ommensal FloraProbable contaminants no senst done @08/11/20 1202: UA W/ MICRO added. RFLXG = UMIC.Method of Collection:: Clean Catch @08/11/20 1202: UA W/ MICRO added. RFLXG = UMIC.Method of Collection:: Clean Catch Name Value Range Interpretation Code Description Data Bria rce(s) Supporting Document(s) Leukocytes [#/volume] in Urine by Manual count 1-2 /hpf 0-5 [facility] Cells [Type] in Urine sediment by Light microscopy [facility] Bacteria [Presence] in Urine sediment by Light microscopy NEGATIVE Above high normal [facility] ID Date Data Source [id number] 08/11/2020 11:44:00 AM EDT [place] ([facility]) Name Value Range Interpretation Code Description Data Bria rce(s) Supporting Document(s) MEDMATCH See scanned report MEDMATCH [facility] ([facility]) Note: Responsible Observer: MEDMATCH MED MATCH [id number] (QUEST) ID Date Data Source [id number] 08/11/2020 11:44:00 AM EDT [place] ([facility]) Name Value Range Interpretation Code Description Data Bria rce(s) Supporting Document(s) Urine culture result See Note Urine culture r esult [facility] ([facility]) Note: 25,000 CFU/MLStaph spp. coag negNo rmal Commensal FloraProbable contaminants no senst done ID Date Data Source [id number] 08/11/2020 11:44:00 AM EDT [facility] ([facility]) Name Value Range Interpretation Code Description Data Bria rce(s) Supporting Document(s) Urine culture result See Note Urine culture r esult [facility] ([facility]) Note: 25,000 CFU/MLStaph spp. coag negNo rmal Commensal FloraProbable contaminants no senst done ID Date Data Source [id number] 08/11/2020 11:43:00 AM EDT [place] ([facility]) Name Value Range Interpretation Code Description Data Bria rce(s) Supporting Document(s) Reported Physicians See Note Reported Physici ans [place] ([facility]) Note: Reported Physicians:Ordering: Vianey CaceresAttending: Vianey Reis ID Date Data Source [id number] 08/11/2020 11:43:00 AM EDT [place] ([facility]) Name Value Range Interpretation Code Description Data Bria rce(s) Supporting Document(s) Urobilinogen [Presence] in Urine See Note Uro bilinogen Ur Ql [place] ([facility]) Note: 0.2 EU/dl0.2 EU/[id number] E U/dlResponsible Observer: UROBILINOGEN UROBILINOGEN 300.4500 (C) Erythrocytes [#/volume] in Urine by Test strip NEGATIVE RBC # Ur Strip [place] ([facility]) Note: Responsible Observer: BLOOD BLOOD 300.4650 (C) Ketones [Presence] in Urine by Test strip See Note Ketones Ur Ql Strip [facility] ([facility]) Note: [id number] EResponsible Observer: KETONE KETONE 300.3900 (C) Protein [Presence] in Urine by Test strip See Note Prot Ur Ql Strip [place] ([facility]) Note: [id number] EResponsible Observer: PROTEIN PROTEIN 300.3750 (C) Bilirubin.total [Presence] in Urine by Automated test strip See Not e Bilirub Ur Ql Strip.auto [facility] ([facility]) Note: [id number] EResponsible Observer: BILIRUBIN BILIRUBIN 300.4550 (C) Glucose [Mass/volume] in Urine by Automated test strip NEGATIVE Glucose Ur Strip.auto-mCnc [place] ([facility]) Note: Responsible Observer: GLUCOSE GLUC OSE 300.3850 (C) Appearance of Urine See Note Abnormal (applies to non-numeric results) Appearance Ur [place] ([facility]) Note: CLOUDYCLOUDYLCLOUDYResponsible Obs erver: APPEARANCE APPEARANCE 300.3400 (A) Color of Urine See Note Color Ur [facility] ([facility]) Note: YELLOWYELLOWLYELLOWResponsible Obs erver: COLOR COLOR 300.3300 (A) Leukocyte esterase [Presence] in Urine by Test strip See Note Leukocyte esterase Ur Ql Strip [place] ([facility]) Note: [id number]@DO MICR O!!!!Responsible Observer: LEUKOCYTES LEUKOCYTES 300.3575 (C) Nitrite [Presence] in Urine by Test strip See Note Nitrite Ur Ql Strip [place] ([facility]) Note: [id number] EResponsible Observer: NITRITE NITRITE 300.3650 (B) Specific gravity of Urine by Refractometry 1.013 Sp Gr Ur Refractometry [place] ([facility]) Note: Responsible Observer: SP GRAVITY U RINE SPECIFIC GRAVITY-MAN 300.3475 (C) pH of Urine by Test strip 6.0 pH Ur Stri p [place] ([facility]) Note: Responsible Observer: PH PH 300.3 450 (C) URINE MICROSCOPIC ADDED Microscopic Added URINE MICROSCOPIC ADDED [place] ([facility]) Note: Responsible Observer: UA URINE ARMANDO ROSCOPIC PENDING 300.4660 (D) Notes [TIMP] See Note NOTES [facility] ([facility]) Note: @08/11/20 1202: UA W/ MICRO added. RFLXG = UMIC.Method of Collection:: Clean Catch ID Date Data Source [id number] 08/11/2020 11:43:00 AM EDT [place] ([facility]) Name Value Range Interpretation Code Description Data Bria rce(s) Supporting Document(s) Reported Physicians See Note Reported Physici ans [place] ([facility]) Note: Reported Physicians:Ordering: Vianey CaceresAttending: Vianey Reis ID Date Data Source [id number] 08/11/2020 11:43:00 AM EDT [place] ([facility]) Name Value Range Interpretation Code Description Data Bria rce(s) Supporting Document(s) ADD ON MICROSCOPIC See Note ADD ON MICROSCOPI C [place] ([facility]) Note: NOTES OTHER/NOT INTERPRETED Bacteria UrnS Ql Micro MODERATE AMOUNT Bacteria UrnS Ql Micro MODERATE AMOUNT Bacteria UrnS Ql Micro L Bacteria UrnS Ql Micro Bacteria UrnS Ql Micro Bacteria UrnS Ql Micro Bacteria UrnS Ql Micro [id number] Bacteria UrnS Ql Micro Bacteria UrnS Ql [...] Clean CatchResponsible Observer: WBC WBC 300.5000 (A) ID Date Data Source [id number] 08/11/2020 11:43:00 AM EDT [place] ([facility]) Name Value Range Interpretation Code Description Data Bria rce(s) Supporting Document(s) Reported Physicians See Note Reported Physici ans [place] ([facility]) Note: Reported Physicians:Ordering: Vianey CaceresAttending: Vianey Reis ID Date Data Source [id number] 08/11/2020 11:43:00 AM EDT [place] ([facility]) Name Value Range Interpretation Code Description Data Bria rce(s) Supporting Document(s) Erythrocytes [#/volume] in Urine by Test strip NEGATIVE RBC # Ur Strip [place] ([facility]) Note: Responsible Observer: BLOOD BLOOD 300.4650 (C) Urobilinogen [Presence] in Urine See Note Uro bilinogen Ur Ql [place] ([facility]) Note: 0.2 EU/dl0.2 EU/[id number] E U/dlResponsible Observer: UROBILINOGEN UROBILINOGEN 300.4500 (C) Protein [Presence] in Urine by Test strip See Note Prot Ur Ql Strip [facility] ([facility]) Note: [id number] EResponsible Observer: PROTEIN PROTEIN 300.3750 (C) Bilirubin.total [Presence] in Urine by Automated test strip See Not e Bilirub Ur Ql Strip.auto [facility] ([facility]) Note: [id number] EResponsible Observer: BILIRUBIN BILIRUBIN 300.4550 (C) Ketones [Presence] in Urine by Test strip See Note Ketones Ur Ql Strip [facility] ([facility]) Note: [id number] EResponsible Observer: KETONE KETONE 300.3900 (C) Glucose [Mass/volume] in Urine by Automated test strip NEGATIVE Glucose Ur Strip.auto-mCnc [place] ([facility]) Note: Responsible Observer: GLUCOSE GLUC OSE 300.3850 (C) Appearance of Urine See Note Abnormal (applies to non-numeric results) Appearance Ur [place] ([facility]) Note: CLOUDYCLOUDYLCLOUDYResponsible Obs erver: APPEARANCE APPEARANCE 300.3400 (A) Color of Urine See Note Color Ur [place] ([facility]) Note: YELLOWYELLOWLYELLOWResponsible Obs erver: COLOR COLOR 300.3300 (A) Leukocyte esterase [Presence] in Urine by Test strip See Note Leukocyte esterase Ur Ql Strip [place] ([facility]) Note: [id number]@DO MICR O!!!!Responsible Observer: LEUKOCYTES LEUKOCYTES 300.3575 (C) Nitrite [Presence] in Urine by Test strip See Note Nitrite Ur Ql Strip [place] ([facility]) Note: [id number] EResponsible Observer: NITRITE NITRITE 300.3650 (B) pH of Urine by Test strip 6.0 pH Ur Stri p [place] ([facility]) Note: Responsible Observer: PH PH 300.3 450 (C) Specific gravity of Urine by Refractometry 1.013 Sp Gr Ur Refractometry [place] ([facility]) Note: Responsible Observer: SP GRAVITY U RINE SPECIFIC GRAVITY-MAN 300.3475 (C) URINE MICROSCOPIC ADDED Microscopic Added URINE MICROSCOPIC ADDED [place] ([facility]) Note: Responsible Observer: UA URINE ARMANDO ROSCOPIC PENDING 300.4660 (D) Notes [TIMP] See Note NOTES [place] ([facility]) Note: @08/11/20 1202: UA W/ MICRO added. RFLXG = UMIC.Method of Collection:: Clean Catch ID Date Data Source [id number] 08/11/2020 12:09:[address] [facility] @08/11/20 1132: CBC-MAN DIFF,PN added. R FLXG = DIFFPNP. Patient Street Address: [address] [place] [address]: [place]: [place] Zip Code: [address]Mmksord Phone Number: [phone] @08/11/20 1132: CBC-MAN DIFF,PN added. R FLXG = DIFFPNP. Patient Street Address: [address] [place] [address]: [place] State: [place]Patient Zip Code: [address]Vdphfsz Phone Number: [phone] Patient Street Address: [address] [place] [address]: [place]: [place] Zip Code: [address]Wjzlzoi Phone Number: [phone] Name Value Range Interpretation Code Description Data Bria rce(s) Supporting Document(s) Leukocytes [#/volume] in Blood by Automated count 11.7 10*3/uL 4.45-10.[address] [facility] Erythrocytes [#/volume] in Blood by Automated count 4.64 10*6/uL 4.20 -5.[address] [facility] Hemoglobin [Moles/volume] in Blood 14.0 g/dL 10.7-15.[address] [facility] Hematocrit [Volume Fraction] of Blood by Automated count 41.7 % 3 7-[address] [facility] Erythrocyte mean corpuscular volume [Ent itic volume] in Cord blood by Automated count 90 fL 80-96 N [facility] ital Erythrocyte mean corpuscular hemoglobin [Entitic mass] by Au tomated count 30 pg 27-[address] [facility] Erythrocyte mean corpuscular hemoglobin concentration [Mass/volume] in Cord blood 34 g/dL 33-37 N [facility] ital Erythrocyte distribution width [Entitic volume] by Automated count 12 % 11-[address] [facility] Platelets [#/volume] in Blood by Automated count 276 10*3/uL 130-[address] [facility] Platelet mean volume [Entitic volume] in Blood 9.5 fL 9.1-13.[address] [facility] Neutrophils/100 leukocytes in Blood by Automated count 78.8 % 41-[address] [facility] Neutrophils [#/volume] in Blood by Automated count 9.2 U 1.7-7.[address] [facility] Lymphocytes/100 leukocytes in Blood by Automated count 15.3 % 14- [address] [facility] Lymphocytes [#/volume] in Blood by Automated count 1.8 U 0.6-4.[address] [facility] Monocytes/100 leukocytes in Blood by Automated count 3.8 % 4-[address] [facility] Monocytes [#/volume] in Blood by Automated count 0.5 U 0.2-1.[address] [facility] Eosinophils/100 leukocytes in Blood by Automated count 1.3 % 0-[address] [facility] Eosinophils [#/volume] in Blood by Automated count 0.2 U 0.0-0.[address] [facility] Basophils/100 leukocytes in Blood by Automated count 0.3 % 0.4-1.[address] [facility] Basophils [#/volume] in Blood by Automated count 0.0 U 0.0-0.[address] [facility] NUCLEATED RED BLOOD CELL 0 % [facility] NUCLEATED RED BLOOD CELL# 0 U [facility] Immature granulocytes [Presence] in Blood by Automated count 0-[address] [facility] Immature granulocytes [#/volume] in Blood by Automated count 0.1 U 0-0.1 [facility] Manual Differential panel - Blood Manual Diff Added [facility] ID Date Data Source [id number] 08/11/2020 12:16:[address] [facility] @08/11/20 1132: CBC-MAN DIFF,PN added. R FLXG = DIFFPNP. Patient Street Address: [address] [place] [address]: [place]: [place] Zip Code: [address]Qxnfydg Phone Number: [phone] @08/11/20 1132: CBC-MAN DIFF,PN added. R FLXG = DIFFPNP. Patient Street Address: [address] [place] [address]: [place] State: [place]Patient Zip Code: [address]Wvnwfmn Phone Number: [phone] Patient Street Address: [address] [place] [address]: [place] State: [place] Zip Code: [address]Odjutpu Phone Number: [phone] Name Value Range Interpretation Code Description Data Bria rce(s) Supporting Document(s) Thyrotropin [Units/volume] in Serum or Plasma by Detec tion limit <= 0.005 mIU/L 1.08 u[iU]/mL 0.35[facility]5.[facility] Date Data Source [id number] 08/12/2020 03:21:[address] [facility] @08/11/20 1132: CBC-MAN DIFF,PN added. R FLXG = DIFFPNP. Patient Street Address: [address] [place] [address]: [place] State: [place]Patient Zip Code: [address]Wzcmfoa Phone Number: [phone] @08/11/20 1132: CBC-MAN DIFF,PN added. R FLXG = DIFFPNP. Patient Street Address: [address] [place] [address]: [place]Patient State: [place]Patient Zip Code: [address]Utlorew Phone Number: [phone] Patient Street Address: [address] [place] [address]: [place] State: [place]Patient Zip Code: [address]Ytnxsjz Phone Number: [phone] Name Value Range Interpretation Code Description Data Bria rce(s) Supporting Document(s) Lead [Moles/volume] in Blood <1 mcg/dL <5 L [facility] See Note 1Note 1This test was developed and its analytical performancecharacteristics have been determined by [employer]. It has not been cleared or approved by theA. This assay has been validated pursuant to the CLIAregulations and is used for clinical purposes.THIS TEST WAS PERFORMED AT:[address] [id number] MERATI,MD ID Date Data Source [id number] 08/16/2020 11:23:[address] [facility] @08/11/20 1132: CBC-MAN DIFF,PN added. R FLXG = DIFFPNP. Patient Street Address: [address] [place] [address]: [facility] State: [place]Patient Zip Code: [address]Mzmlnea Phone Number: [phone] @08/11/20 1132: CBC-MAN DIFF,PN added. R FLXG = DIFFPNP. Patient Street Address: [address] [place] [address]: [place] State: [place]Patient Zip Code: [address]Kbxyeds Phone Number: [phone] Patient Street Address: [address] [place] [address]: [facility] State: [place]Patient Zip Code: [address]Tufggyl Phone Number: [phone] Name Value Range Interpretation Code Description Data Bria rce(s) Supporting Document(s) HIV (1&2) Screen, 4th Gen NON-REACTIVE NON-REACTIVE [facility] HIV-1 antigen and HIV-1/HIV-2 antibodies were notdetected. There is no laboratory evidence [...] for this purpose.For additional information please refer toht tp://education.Georgina Goodman/faq/GBU589(This link is being provided for informational/educational purposes only.)The performance of this assay has not been clinicallyvalidated in patients less than 2 years old.THIS TEST WAS PERFORMED AT:[facility] [address]AWHGYG MERATI,MD HIV 1 Ab [Presence] in Serum, Plasma or Blood by Rapid immunoassay [facility] HIV 1 RNA [Presence] in Serum or Plasma by Probe and target amplification method [facility] Treponema pallidum Ab [Presence] in Serum by Agglutination Nonreactive [facility] THIS TEST WAS PERFORMED AT:[facility] [place] [address]PZOZADZEDMOND LUNDY MD,PHD Rapid Plasma Reagin (RPR) [facility] Reagin Ab [Titer] in Serum by RPR [facility] Hepatitis B virus surface Ag [Presence] in Serum or Plasma b y Immunoassay NON-REACTIVE [facility] THIS TEST WAS PERFORMED AT:[facility] [address]TEAJQG MERATI,MD HBsAg Confirmation [facility] Rubella virus IgG Ab [Units/volume] in Serum or Plasma by Immunoassay 5.89 Index [facility] l Index Interpretation - ---- <0.90 Not consistent with immunity 0.90-0.99 Equivocal > or = 1.00 Consistent with immunityThe presence of rubella IgG antibody suggestsimmunization or past or current infection withrubella virus.THIS TEST WAS PERFORMED AT:[facility] [address]JNSNCE MERATI,MD ID Date Data Source [id number] 08/11/2020 12:09:[address] [facility] @08/11/20 1132: CBC-MAN DIFF,PN added. R FLXG = DIFFPNP. Patient Street Address: [address] [place] [address]: [place]: [place] Zip Code: [address]Kxsfvmh Phone Number: [phone] @08/11/20 1132: CBC-MAN DIFF,PN added. R FLXG = DIFFPNP. Patient Street Address: [address] [place] [address]: [place]: [place] Zip Code: [address]Pawyxpl Phone Number: [phone] Patient Street Address: [address] [place] [address]: [place]: [place] Zip Code: [address]Jbmzoef Phone Number: [phone] Name Value Range Interpretation Code Description Data Bria rce(s) Supporting Document(s) Cells counted [#] 100 [facility] Neutrophils [#/volume] in Blood by Manual count 83 % 41-[address] [facility] Lymphocytes [#/volume] in Blood by Manual count 14 % 14-[address] [facility] Monocytes [#/volume] in Blood by Manual count 2 % 4-[address] [facility] Eosinophils [#/volume] in Blood by Manual count 1 % 0-[address] [facility] Platelets [#/volume] in Blood by Estimate APPEARS NORMAL NORMAL [facility] Morphology [Interpretation] in Blood Narrative APPEARS NORMAL NORMAL [facility] ID Date Data Source [id number] 08/12/2020 03:21:[address] [facility] @08/11/20 1132: CBC-MAN DIFF,PN added. R FLXG = DIFFPNP. Patient Street Address: [address] [place] [address]: [place]: [place] Zip Code: [address]Kookjgn Phone Number: [phone] @08/11/20 1132: CBC-MAN DIFF,PN added. R FLXG = DIFFPNP. Patient Street Address: [address] [place] [address]: [place] State: [place] Zip Code: [address]Aylkocn Phone Number: [phone] Patient Street Address: [address] [place] [address]: [place] State: [place]Patient Zip Code: [address]Uuxwcnr Phone Number: [phone] Name Value Range Interpretation Code Description Data Bria rce(s) Supporting Document(s) Varicella zoster virus IgG Ab [Units/volume] in Serum by Immunoassay 580.00 index [facility] l Index Interpretatio n --------- <135.00 Negative - Antibody not detected 135.00 - 164.99 Equivocal > or = 165.00 Positive - Antibody detected A positive result indicates that the patient has antibody to VZV but does not differentiate between an active or past infection. The clinical d iagnosis must be interpreted in conjunction with the [...] Antibody Immunity Screen, ACIF.THIS TEST WAS PERFORMED AT:[facility] [address]QBZOTI MERATI,MD ID Date Data Source [id number] 08/12/2020 03:21:[address] [facility] @08/11/20 1132: CBC-MAN DIFF,PN added. R FLXG = DIFFPNP. Patient Street Address: [address] [place] [address]: [place] State: [place]Patient Zip Code: [address]Cyzbwpx Phone Number: [phone] @08/11/20 1132: CBC-MAN DIFF,PN added. R FLXG = DIFFPNP. Patient Street Address: [address] [place] [address]: [place]Patient State: [place]Patient Zip Code: [address]Idztqpr Phone Number: [phone] Patient Street Address: [address] [place] [address] [place] City: [place] State: [place]Patient Zip Code: [address]Notnryo Phone Number: [phone] Name Value Range Interpretation Code Description Data Bria rce(s) Supporting Document(s) Hepatitis C virus Ab [Presence] in Serum NON-REACTIVE [facility] HCV RNA Qualitative (ALEJANDRO) 0.01 <1.00 [facility] HCV antibody was non-reactive. There is no laboratoryevidence of HCV infection.In most cases, no further action is required. However,if recent HCV exposure is suspected, a test for HCV RNA(test code 46907) is suggested.For additional information please refer tohttp://education.Georgina Goodman/faq/IBP73s4(This link is being provided for informational/educational purposes only.)THIS TEST WAS PERFORMED AT:[facility] [address]JONE CRAVEN MD Hepatitis C virus RNA [Units/volume] (vi ral load) in Serum or Plasma by Probe and target amplification method [facility] ID Date Data Source [id number] 08/11/2020 11:20:00 AM [facility] ([facility]) Name Value Range Interpretation Code Description Data Bria rce(s) Supporting Document(s) Thyrotropin [Units/volume] in Serum or Plasma by Detec tion limit <= 0.005 mIU/L 1.08 MicroInternationalUnitsPerMilliLiter_[Arbitrary_Con Nor mal TSH SerPl DL<=0.005 mIU/L-[facility] ([facility]) Note: Responsible Observer: TSH TSH 600 .7055 (D) ID Date Data Source [id number] 08/11/2020 11:20:00 AM [facility] ([facility]) Name Value Range Interpretation Code Description Data Bria rce(s) Supporting Document(s) Erythrocyte mean corpuscular volume [Ent itic volume] in Cord blood by Automated count 90 FemtoLiter_[SI_Volume_Units] Normal MCV BldCo Auto [place] ([facility]) Note: Responsible Observer: MCV MCV 100 .0600 (B) Erythrocyte distribution width [Entitic volume] by Automated cou nt 12 percent Normal RDW RBC Auto [place] ([facility]) Note: Responsible Observer: RDW RDW 100 .0900 (B) Manual Differential panel - Blood Manual Diff Added Manual diff Bld [place] ([facility]) Note: Responsible Observer: CBC Manual D ifferential Added 100.1996 (A) Platelet mean volume [Entitic volume] in Blood 9.5 FemtoLite r_[SI_Volume_Units] Normal PMV Bld [facility] ([facility]) Note: Responsible Observer: MPV MPV 100 .1100 (B) Immature granulocytes [Presence] in Blood by Automated count See No te Normal Imm Granulocytes Bld Ql Auto [facility] ([facility]) Note: [id number] Ob chief strategy officer: IG% IG% 100.1375 (B) Erythrocyte mean corpuscular hemoglobin concentration [Mass/volume] in Cord blood 34 GramsPerDeciLiter_[Mass_Concentration_Units] Normal MCHC BldCo-mCnc [facility] ([facility]) Note: Responsible Observer: MCHC MCHC 1 00.0800 (B) Hematocrit [Volume Fraction] of Blood by Automated count 41.7 perce nt Normal Hct VFr Bld Auto [facility] ([facility]) Note: Responsible Observer: HEMATOCRIT H EMATOCRIT 100.0500 (B) Immature granulocytes [#/volume] in Blood by Automated count 0.1 Un it Imm Granulocytes # Bld Auto [place] ([facility]) Note: Responsible Observer: IG# IG# 100 .1400 (B) Monocytes/100 leukocytes in Blood by Automated count 3.8 percent Below low normal Monocytes/leuk NFr Bld Auto [place] ([facility]) Note: Responsible Observer: MONO % MONO % 100.1225 (B) Hemoglobin [Moles/volume] in Blood 14.0 GramsPerDeciLiter_[Mass_Concentration_Units] Normal Hgb Bld-sCnc [facility] ([facility]) Note: Responsible Observer: HGB HEMOGLOB IN 100.0400 (B) Leukocytes [#/volume] in Blood by Automated count 11.7 ThousandsPerMicroLiter_[Number_Concentration_Units] Above hi gh normal WBC # Bld Auto [facility] ([facility]) Note: Responsible Observer: WBC WHITE BL OOD COUNT 100.0100 (E) Basophils [#/volume] in Blood by Automated count 0.0 Unit Normal Basophils # Bld Auto [place] ([facility]) Note: Responsible Observer: BASO # BASO# 100.1350 (B) Basophils/100 leukocytes in Blood by Automated count 0.3 percent Below low normal Basophils/leuk NFr Bld Auto [place] ([facility]) Note: Responsible Observer: BASO % BASO % 100.1325 (B) Eosinophils [#/volume] in Blood by Automated count 0.2 Unit Normal Eosinophil # Bld Auto [place] ([facility]) Note: Responsible Observer: EOS # EOS# 100.1300 (D) Eosinophils/100 leukocytes in Blood by Automated count 1.3 percent Normal Eosinophil/leuk NFr Bld Auto [place] ([facility]) Note: Responsible Observer: EOS % EOS % 100.1275 (B) Lymphocytes [#/volume] in Blood by Automated count 1.8 Unit Normal Lymphocytes # Bld Auto [place] ([facility]) Note: Responsible Observer: LYMPH # LYMP H# 100.1200 (B) Lymphocytes/100 leukocytes in Blood by Automated count 15.3 percent Normal Lymphocytes/leuk NFr Bld Auto [place] ([facility]) Note: Responsible Observer: LYMPH % LYMP H % 100.1175 (B) Neutrophils [#/volume] in Blood by Automated count 9.2 Unit Above high normal Neutrophils # Bld Auto [place] ([facility]) Note: Responsible Observer: NEUT# NEUT# 100.1150 (B) Monocytes [#/volume] in Blood by Automated count 0.5 Unit Normal Monocytes # Bld Auto [place] ([facility]) Note: Responsible Observer: MONO # MONO# 100.1250 (C) Neutrophils/100 leukocytes in Blood by Automated count 78.8 perc ent Above high normal Neutrophils/leuk NFr Bld Auto [place] ([facility]) Note: Responsible Observer: NEUT% NEUT% 100.1125 (B) Platelets [#/volume] in Blood by Automated count 276 ThousandsPerMicroLiter_[Number_Concentration_Units] Normal Platelet # Bld Auto [place] ([facility]) Note: Responsible Observer: PLATELET COU NT PLATELET COUNT 100.1000 (D) Erythrocyte mean corpuscular hemoglobin [Entitic mass] by Automated count 30 PicoGram_[SI_Mass_Units] Normal MCH RBC Qn Auto [place] ([facility]) Note: Responsible Observer: MCH MCH 100 .0700 (B) Erythrocytes [#/volume] in Blood by Automated count 4. 64 MillionsPerMicroLiter_[Number_Concentration_Units] Normal RBC # Bld Auto [place] ([facility]) Note: Responsible Observer: RBC Red Bloo d Count 100.0300 (B) NUCLEATED RED BLOOD CELL# 0 Unit NUCLEATED RED BLOOD CELL# [place] ([facility]) Note: Responsible Observer: NRBC# NUCLEA RAMY RBC 100.1362 (A) NUCLEATED RED BLOOD CELL 0 percent NUCLEATED R ED BLOOD CELL [place] ([facility]) Note: Responsible Observer: NRBC% NRBC% 100.1360 (B) Notes [TIMP] See Note IKE [place] ([facility]) Note: @08/11/20 1132: CBC-MAN DIFF,PN ad ded. RFLXG = DIFFPNP. ID Date Data Source [id number] 08/11/2020 11:20:00 AM T [place] ([facility]) Name Value Range Interpretation Code Description Data Bria rce(s) Supporting Document(s) Reported Physicians See Note Reported Pateli fracisco [place] ([facility]) Note: Reported Physicians:Ordering: Vianey CaceresAttending: Vianey Reis ID Date Data Source [id number] 08/11/2020 11:20:00 AM [facility] ([facility]) Name Value Range Interpretation Code Description Data Bria rce(s) Supporting Document(s) Varicella zoster virus IgG Ab [Units/volume] in Serum by Immunoassa y 580.00 VZV IgG Ser IA-aCnc [facility] ([facility]) Note: Index Interpr etation --------- <135.00 Negative - Antibody not detected 135.00 - 164.99 Equivocal > or = 165.00 Positive - Antibody detected A positive result indicates that the patient has antibody to VZV but does not differentiate between an active or past infection. The clinical d iagnosis must be interpreted in conjunction with the [...] Antibody Immunity Screen, ACIF.THIS TEST WAS PERFORMED AT:[address] [address]YLDQHR MERATI,MDResponsible Observer: VARICELLA IGG Varicella-Zoster IgG Antibody [id number] 168.3428 ([facility]) Notes [TIMP] See Note NOTES [facility] ([facility]) Note: Patient Street Address: [address] [place] [address] City: [facility] State: [facility] Zip Code: [address]Lszvouv Phone Number: [phone] ID Date Data Source [id number] [facility]/11/2020 [facility]:20:[facility] Name Value Range Interpretation Code Description Data Bria rce(s) Supporting Document(s) MANUAL DIFF, PNP See Note MANUAL DIFF, PNP [facility] ([facility]) Note: NOTES OTHER/NOT INTERPRETED Cells counted 100 Eosinophil # Bld Manual 1 %Lymphocytes # Bld Manual 14 %Monocytes # Bld Manual 2 %Morphology Bld-Imp APPEARS NORMAL Neutrophils # Bld Manual 83 %Platelet # Bld Est APPEARS NORMAL @08/11/20 1132: CBC-MAN DIFF,PN added. RFLXG = DIFFPNP.Responsible Observer: TOTAL CELLS TOTAL CELLS COUNTED 100.2105 (A) ID Date Data Source [id number] 08/11/2020 11:20:00 AM [facility] ([facility]) Name Value Range Interpretation Code Description Data Bria rce(s) Supporting Document(s) Reported Physicians See Note Reported Yane yap [place] ([facility]) Note: Reported Physicians:Ordering: Vianey CaceresAttending: Vianey Reis ID Date Data Source [id number] 08/11/2020 11:20:00 AM [facility] ([facility]) Name Value Range Interpretation Code Description Data Bria rce(s) Supporting Document(s) Notes [TIMP] See Note NOTES [place] ([facility]) Note: Patient Street Address: [address] Christie City: [place]: [place] Zip Code: [address]Edblilb Phone Number: [phone] Lead [Moles/volume] in Blood <1 Lead Bl d-[facility] ([facility]) Note: See Note 1Note 1This test was imelda mcgowan and its analytical performancecharacteristics have been determined by [employer]. It has not been cleared or approved by [facility]. This assay has been validated pursuant to the CLIAregulations and is used for clinical purposes.THIS TEST WAS PERFORMED AT:[address] [address]PJPHHQDANAY MCKAYesponsible Observer: Lead, WB Lead, Whole Blood [id number] 101.4726 ([facility]) ID Date Data Source [id number] 08/11/2020 11:20:00 AM [facility] ([facility]) Name Value Range Interpretation Code Description Data Bria rce(s) Supporting Document(s) Thyrotropin [Units/volume] in Serum or Plasma by Detec tion limit <= 0.005 mIU/L 1.08 MicroInternationalUnitsPerMilliLiter_[Arbitrary_Con Nor mal TSH SerPl DL<=0.005 mIU/L-[facility] ([facility]) Note: Responsible Observer: TSH TSH 600 .7055 (D) ID Date Data Source [id number] 08/11/2020 11:20:00 AM [facility] ([facility]) Name Value Range Interpretation Code Description Data Bria rce(s) Supporting Document(s) Erythrocyte mean corpuscular volume [Ent itic volume] in Cord blood by Automated count 90 FemtoLiter_[SI_Volume_Units] Normal MCV BldCo Auto [place] ([facility]) Note: Responsible Observer: MCV MCV 100 .0600 (B) Erythrocyte distribution width [Entitic volume] by Automated cou nt 12 percent Normal RDW RBC Auto [place] ([facility]) Note: Responsible Observer: RDW RDW 100 .0900 (B) Manual Differential panel - Blood Manual Diff Added Manual diff Bld [place] ([facility]) Note: Responsible Observer: CBC Manual D ifferential Added 100.1996 (A) Platelet mean volume [Entitic volume] in Blood 9.5 FemtoLite r_[SI_Volume_Units] Normal PMV Bld [facility] ([facility]) Note: Responsible Observer: MPV MPV 100 .1100 (B) Immature granulocytes [Presence] in Blood by Automated count See No te Normal Imm Granulocytes Bld Ql Auto [facility] ([facility]) Note: [id number] Ob chief strategy officer: IG% IG% 100.1375 (B) Hematocrit [Volume Fraction] of Blood by Automated count 41.7 perce nt Normal Hct VFr Bld Auto [facility] ([facility]) Note: Responsible Observer: HEMATOCRIT H EMATOCRIT 100.0500 (B) Erythrocyte mean corpuscular hemoglobin concentration [Mass/volume] in Cord blood 34 GramsPerDeciLiter_[Mass_Concentration_Units] Normal MCHC BldCo-mCnc [facility] ([facility]) Note: Responsible Observer: MCHC MCHC 1 00.0800 (B) Immature granulocytes [#/volume] in Blood by Automated count 0.1 Un it Imm Granulocytes # Bld Auto [facility] ([facility]) Note: Responsible Observer: IG# IG# 100 .1400 (B) Monocytes/100 leukocytes in Blood by Automated count 3.8 percent Below low normal Monocytes/leuk NFr Bld Auto [facility] ([facility]) Note: Responsible Observer: MONO % MONO % 100.1225 (B) Hemoglobin [Moles/volume] in Blood 14.0 GramsPerDeciLiter_[Mass_Concentration_Units] Normal Hgb Bld-sCnc [facility] ([facility]) Note: Responsible Observer: HGB HEMOGLOB IN 100.0400 (B) Leukocytes [#/volume] in Blood by Automated count 11.7 ThousandsPerMicroLiter_[Number_Concentration_Units] Above hi gh normal WBC # Bld Auto [facility] ([facility]) Note: Responsible Observer: WBC WHITE BL OOD COUNT 100.0100 (E) Basophils [#/volume] in Blood by Automated count 0.0 Unit Normal Basophils # Bld Auto [facility] ([facility]) Note: Responsible Observer: BASO # BASO# 100.1350 (B) Basophils/100 leukocytes in Blood by Automated count 0.3 percent Below low normal Basophils/leuk NFr Bld Auto [facility] ([facility]) Note: Responsible Observer: BASO % BASO % 100.1325 (B) Eosinophils [#/volume] in Blood by Automated count 0.2 Unit Normal Eosinophil # Bld Auto [place] ([facility]) Note: Responsible Observer: EOS # EOS# 100.1300 (D) Eosinophils/100 leukocytes in Blood by Automated count 1.3 percent Normal Eosinophil/leuk NFr Bld Auto [facility] ([facility]) Note: Responsible Observer: EOS % EOS % 100.1275 (B) Lymphocytes [#/volume] in Blood by Automated count 1.8 Unit Normal Lymphocytes # Bld Auto [facility] ([facility]) Note: Responsible Observer: LYMPH # LYMP H# 100.1200 (B) Monocytes [#/volume] in Blood by Automated count 0.5 Unit Normal Monocytes # Bld Auto [facility] ([facility]) Note: Responsible Observer: MONO # MONO# 100.1250 (C) Lymphocytes/100 leukocytes in Blood by Automated count 15.3 percent Normal Lymphocytes/leuk NFr Bld Auto [facility] ([facility]) Note: Responsible Observer: LYMPH % LYMP H % 100.1175 (B) Neutrophils [#/volume] in Blood by Automated count 9.2 Unit Above high normal Neutrophils # Bld Auto [facility] ([facility]) Note: Responsible Observer: NEUT# NEUT# 100.1150 (B) Neutrophils/100 leukocytes in Blood by Automated count 78.8 perc ent Above high normal Neutrophils/leuk NFr Bld Auto [facility] ([facility]) Note: Responsible Observer: NEUT% NEUT% 100.1125 (B) Erythrocyte mean corpuscular hemoglobin [Entitic mass] by Automated count 30 PicoGram_[SI_Mass_Units] Normal MCH RBC Qn Auto [place] ([facility]) Note: Responsible Observer: MCH MCH 100 .0700 (B) Platelets [#/volume] in Blood by Automated count 276 ThousandsPerMicroLiter_[Number_Concentration_Units] Normal Platelet # Bld Auto [facility] ([facility]) Note: Responsible Observer: PLATELET COU NT PLATELET COUNT 100.1000 (D) Erythrocytes [#/volume] in Blood by Automated count 4. 64 MillionsPerMicroLiter_[Number_Concentration_Units] Normal RBC # Bld Auto [facility] ([facility]) Note: Responsible Observer: RBC Red Bloo d Count 100.0300 (B) NUCLEATED RED BLOOD CELL# 0 Unit NUCLEATED RED BLOOD CELL# [facility] ([facility]) Note: Responsible Observer: NRBC# NUCLEA RAMY RBC 100.1362 (A) Notes [TIMP] See Note NOTES [facility] ([facility]) Note: @08/11/20 1132: CBC-MAN DIFF,PN ad ded. RFLXG = DIFFPNP. NUCLEATED RED BLOOD CELL 0 percent NUCLEATED R ED BLOOD CELL [facility] ([facility]) Note: Responsible Observer: NRBC% NRBC% 100.1360 (B) ID Date Data Source [id number] 08/11/2020 01:01:[address] [facility] :: YTransfused within 90 days?: NPre Op? (IF Yes, give date): N Name Value Range Interpretation Code Description Data Bria rce(s) Supporting Document(s) Blood bank studies (set) Yes [facility] Blood Type [facility] Antibody Screen (PN) NEGATIVE [facility] ID Date Data Source [id number] 08/11/2020 11:20:00 AM EDT [place] ([facility]) Name Value Range Interpretation Code Description Data Bria rce(s) Supporting Document(s) Reported Physicians See Note Reported Physici ans [facility] ([facility]) Note: Reported Physicians:Ordering: Vianey CaceresAttending: Vianey Reis ID Date Data Source [id number] 08/11/2020 11:20:00 AM EDT [place] ([facility]) Name Value Range Interpretation Code Description Data Bria rce(s) Supporting Document(s) Blood bank studies (set) Yes Blood bank studies [place] ([facility]) Note: Responsible Observer: Prev. Histor y? Previous History? 100.0800 (A) Antibody Screen (PN) NEGATIVE Antibody Screen (PN) [place] ([facility]) Note: Responsible Observer: Antibody Scr een Antibody Screen (PN) 200.0002 (C) Blood Type See Note Blood Type [place] ([facility]) Note: EUSEBIO NegativeLResponsible Observer: Blood Type Blood Type 110.0950 (C) Notes [TIMP] See Note NOTES [facility] ([facility]) Note: :: YTransfused within 90 d ays?: NPre Op? (IF Yes, give date): N ID Date Data Source [id number] 08/11/2020 11:20:00 AM EDT [place] ([facility]) Name Value Range Interpretation Code Description Data Bria rce(s) Supporting Document(s) Reported Physicians See Note Reported Physici fracisco [place] ([facility]) Note: Reported Physicians:Ordering: Vianey CaceresAttending: Vianey Reis ID Date Data Source [id number] 08/11/2020 11:20:00 AM EDT [place] ([facility]) Name Value Range Interpretation Code Description Data Bria rce(s) Supporting Document(s) Hepatitis C virus RNA [Units/volume] (vi ral load) in Serum or Plasma by Probe and target amplification method See Note HCV RNA S erPl ALEJANDRO+probe-aCnc [place] ([facility]) Note: TNPNo Reportable ResultLTNPNo Repo rtable ResultLLEP.LIVENTNPResponsible Observer: HCV RNA, QN PCR HCV RNA, QUANT RT-PCR [id number] 914.8340 ([facility]) Hepatitis C virus Ab [Presence] in Serum See Note HCV Ab Ser Ql [place] ([facility]) Note: DAB-HDLSHSDFULA-[id number] 5NON-REACTIVEResponsible Observer: HEP C ANTIBODY Hepatitis C Antibody [id number] 914.8305 ([facility]) HCV RNA Qualitative (ALEJANDRO) 0.01 HCV RNA Qu alitative (ALEJANDRO) [place] ([facility]) Note: HCV antibody was non-reactive. The re is no laboratoryevidence of HCV infection.In most cases, no further action is required. However,if recent HCV exposure is suspected, a test for HCV RNA(test code 85517) is suggested.For additional information please refer tohttp://education.Georgina Goodman/faq/TWF26z2(This link is being provided for informational/educational purposes only.)THIS TEST WAS PERFORMED AT:[facility] [place] [address]DANAY MCKAYesponsible Observer: SIG TO C/O SIGNAL TO CUTOFF [id number] 103.0664 ([place] [facility]) Notes [TIMP] See Note NOTES [place] ([facility]) Note: Patient Street Address: [address] [place] [address] City: [facility] State: [facility] Zip Code: [address] Phone Number: [phone] ID Date Data Source [id number] 08/11/2020 11:20:00 AM EDT [place] ([facility]) Name Value Range Interpretation Code Description Data Bria rce(s) Supporting Document(s) Reported Physicians See Note Reported Physici ans [place] ([facility]) Note: Reported Physicians:Ordering: Vianey CaceresAttending: Vianey Reis ID Date Data Source [id number] 08/11/2020 11:20:00 AM EDT [place] ([facility]) Name Value Range Interpretation Code Description Data Bria rce(s) Supporting Document(s) HIV 1 RNA [Presence] in Serum or Plasma by Probe and target amplification method See Note HIV1 RNA SerPl Ql ALEJANDRO+probe [place] ([facility]) Note: TNPNo Reportable ResultLTNPNo Repo rtable ResultLLEP.LIVENTNPResponsible Observer: HIV 1 RNA, QL T HIV 1 RNA, QL TMA [id number] 908.0254 ([place]) Treponema pallidum Ab [Presence] in Serum by Agglutination See Note T pallidum Ab Ser Ql Aggl [place] ([facility]) Note: [id number] onreactiveTHIS TEST WAS PERFORMED AT:[facility]ALSVDUWRKOQ[address] [place], [place] [address]EDMOND LUNDY MD,PHDResponsible Observer: TP-PA Treponema pallidum Ab (TP-PA) [id number] 908.0284 ([place] [facility]) Hepatitis B virus surface Ag [Presence] in Serum or Pl asma by Immunoassay See Note HBV surface Ag SerPl Ql IA [place] ([facility]) Note: ZHD-CSBYGEPDSLM-[id number] 1NON-REACTIVETHIS TEST WAS PERFORMED AT:[place] [address]JONE CRAVEN,MDResponsible Observer: HBSAG Hepatitis B Surface Antigen [id number] .2004 ([place]) Reagin Ab [Titer] in Serum by RPR See Note RP R Ser-Titr [place] ([facility]) Note: TNPNo Reportable ResultLTNPNo Repo rtable ResultLLEP.LIVENTNPResponsible Observer: RPR TITER (REFL RPR TITER (REFLEX) [id number] 908.0292 ([place]) Rubella virus IgG Ab [Units/volume] in Serum or Plasma by Immunoass ay 5.89 RUBV IgG SerPl IA-aCnc [place] ([facility]) Note: Index Interpretatio n ----- <0.90 Not consistent with immunity 0.90-0.99 Equivocal > or = 1.00 Consistent with immunityThe presence of rubella IgG antibody suggestsimmunization or past or current infection withrubella virus.THIS TEST WAS PERFORMED AT:[facility]JONE CRAVENMDResponsible Observer: Rubella IgG Ab Rubella IgG Ab [id number] 911.2840 ([place]) HIV 1 Ab [Presence] in Serum, Plasma or Blood by Rapid immunoassay See Note HIV1 Ab SerPlBld Ql IA.rapid [place] ([facility]) Note: TNPNo Reportable ResultLTNPNo Repo rtable ResultLLEP.LIVENTNPResponsible Observer: HIV 1 AB HIV 1 AB [id number] 908.0250 ([facility]) Rapid Plasma Reagin (RPR) See Note Rapid Plas ma Reagin (RPR) [place] ([facility]) Note: TNPNo Reportable ResultLTNPNo Repo rtable ResultLLEP.LIVENTNPResponsible Observer: RPR Rapid Plasma Reagin (RPR) [id number] 908.0290 ([facility]) HIV (1&2) Screen, 4th Gen NON-REACTIVE HIV (1&2 ) Screen, 4th Gen [facility] ([facility]) Note: HIV-1 antigen and HIV-1/HIV-2 anti bodies [...] for this purpose.For additional information please refer tohttp://education.Georgina Goodman/faq/XNK518(This link is being provided for informational/educational purposes only.)The performance of this assay has not been clinicallyvalidated in patients less than 2 years old.THIS TEST WAS PERFORMED AT:[facility] [address]BKSMIS MERATI,MDResponsible Observer: HIV ABS HIV (1&2) Screen, 4th Gen [id number] 908.0228 ([facility]) HBsAg Confirmation See Note HBsAg Confirmatio n [place] ([facility]) Note: TNPNo Reportable ResultLTNPNo Repo rtable ResultLLEP.LIVENTNPResponsible Observer: HBsAg Confirm HBsAg Confirmation [id number] 910.2006 ([facility]) ID Date Data Source [id number] 08/11/2020 11:20:00 AM EDT [place] ([facility]) Name Value Range Interpretation Code Description Data Bria rce(s) Supporting Document(s) Notes [TIMP] See Note NOTES [facility] ([facility]) Note: Patient Street Address: [address] [place] [address] City: [facility] State: [place] Zip Code: [address] Phone Number: [phone] Lead [Moles/volume] in Blood <1 Lead Bl d-sCnc [place] ([facility]) Note: See Note 1Note 1This test was imelda mcgowan and its analytical performancecharacteristics have been determined by [employer]. It has not been cleared or approved by theA. This assay has been validated pursuant to the CLIAregulations and is used for clinical purposes.THIS TEST WAS PERFORMED AT:[facility] [address]DLUGMXGary MCKAY Observer: Lead, WB Lead, Whole Blood [id number] 911.2190 ([facility]) ID Date Data Source [id number] 08/09/2020 08:23:00 AM EDT [place] ([facility]) Name Value Range Interpretation Code Description Data Bria rce(s) Supporting Document(s) Blood [Presence] in Urine by Visual trace non hemo Abnormal (applies to non- numeric results) blood [facility] ([facility]) Glucose [Mass/volume] in Urine collected for unspecified duratio n normal Normal glucose [place] ([facility]) Bilirubin [Presence] in Peritoneal fluid normal Normal bilirubin [place] ([facility]) ketone normal Normal ketone [place] ([facility]) nitrites normal Normal nitrites [place] ([facility]) Leukocytes [#/volume] by Microscopy high power field in Urine sediment collected for unspecified duration trace Abnormal (applies to n on-numeric results) leukocytes [place] ([facility]) Specific gravity of Pericardial fluid by Refractometry 1.020 Normal specific gravity [place] ([facility]) pH of Vaginal fluid by Test strip 6 Normal pH [place] ([facility]) Protein [Mass/volume] in Saliva (oral fluid) trace Abnormal (applies to non- numeric results) protein [place] ([facility]) Urobilinogen [Presence] in Urine by Automated test strip .2 Normal urobilinogen [place] ([facility]) ID Date Data Source [id number] 08/09/2020 08:15:00 AM T [place] ([facility]) Name Value Range Interpretation Code Description Data Bria rce(s) Supporting Document(s) Reported Physicians See Note Reported Physici ans [place] ([facility]) Note: Reported Physicians:Ordering: Vianey CaceresAttending: Vianey Reis ID Date Data Source [id number] 08/09/2020 08:15:00 AM EDT [place] ([facility]) Name Value Range Interpretation Code Description Data Bria rce(s) Supporting Document(s) Gram Negative Panel 4 See Note Susceptibl e. Indicates for microbiology susceptibilities only. Gram Negative Panel 4 [place] ([facility]) Note: SUSCEPTIBLE ---Amoxicillin+Clavulanate [Susceptibility] by Minimum inhibitory [...] [Susceptibility] by Minimum inhibitory concentration (ARMANDO) >16 ID Date Data Source [id number] 08/09/2020 08:15:00 AM EDT [place] ([facility]) Name Value Range Interpretation Code Description Data Bria rce(s) Supporting Document(s) Bacteria identified in Urine by Culture See Note Bacteria Ur Cult [facility] ([facility]) Note: ESCCOLESCHERICHIA [id number] SCHERICHIA COLI Notes [TIMP] See Note NOTES [facility] ([facility]) Note: @08/11/20 0656: Urine ID Charge ad ded. RFLXG = CHGURID. [place] count [#/volume] in Implant device by Culture Greater than 1 00,000 [place] count [facility] ([facility]) ID Date Data Source [id number] 07/05/2020 12:54:00 PM [facility] Name Value Range Interpretation Code Description Data Bria rce(s) Supporting Document(s) Choriogonadotropin.beta subunit [Units/volume] in Serum or P lasma 2874 m[iU]/mL 0-[address] [facility] @Instrument will autodiluteAPPROXIMATE G ESTATION AGE APRROXIMATE HCG RANGE 0-1 WEEK 0 - 50 1-2 WEEKS 40 - 300 2-3 WEEKS 100 - 1,000 3-4 WEEKS 500 - 6,000 1-2 MONTHS 5,000 - 200,000 2- 3 MONTHS 10,000 - 100,000 2ND TRIMESTER 3,000 - 50,000 3RD TRIMESTER 1,000 - 50,000 ID Date Data Source [id number] 07/05/2020 11:04:00 AM [facility] ([facility]) Name Value Range Interpretation Code Description Data Bria rce(s) Supporting Document(s) Reported Physicians See Note Reported Pateli fracisco [place] ([facility]) Note: Reported Physicians:[facility]ing[facility] Vianey chakrabortyAttending: Chaya DyanaCopy To: Aubree Larkin ID Date Data Source [id number] 07/05/2020 11:04:00 AM [facility] ([facility]) Name Value Range Interpretation Code Description Data Bria rce(s) Supporting Document(s) Choriogonadotropin.beta subunit [Units/volume] in Seru m or Plasma 2874 MilliInternationalUnitsPerMilliLiter_[Arbitrary_Con Above hi gh normal B-HCG SerPl-aCnc [place] ([facility]) Note: @Instrument will autodiluteAPPROXI MATE GESTATION AGE APRROXIMATE HCG RANGE 0-1 WEEK 0 - 50 1-2 WEEKS 40 - 300 2-3 WEEKS 100 - 1,000 3-4 WEEKS 500 - 6,000 1-2 MONTHS 5,000 - 200,000 2-3 MONTHS 10,000 - 100,000 2ND TRIMESTER 3,000 - 50,000 3RD TRIMESTER 1,000 - 50,000Responsible Observer: EBONIE COYLE BHCG, QUANTITATIVE 600.5006 (G) ID Date Data Source [id number] 07/07/2020 09:03:00 AM EST [facility] Name Value Range Interpretation Code Description Data Bria rce(s) Supporting Document(s) CULTURE URINE [facility] _CULTURE URINE_$$[id number]$$[id number]$$[id number]$$409957$$795445$$216701$$493015$$203546$$054634$$ 413902$$261507$$357526$$833696$$505249$$074499$$874860$$615193$$263353$$235774$$ 615025$$644125$$883205$$604548$$578411$$146343$$907642$$426730 -- Continued on next page --Patient: EMILIANO MONIQUE M Order: [id number] Page 2Culture: CULTURE URINE Status: Final ==== -- Continued on next page --Patient: EMILIANO MONIQUE M Order: [id number] Page 2Culture: CULTURE URINE Status: Prelim =====$$[id number]$$[id number] DATE/TIME: 07/07/2020 08:07Culture: CULTURE URINE Status: FinalIsolate 1 Escherichia coli Flag: A . . . . . . .125,000-50,000 colony forming units per mLCefazolin <=4 ug/mLCefazolin with an ARMANDO <=16 predicts susceptibility to the oral agentscefaclor, cefdinir, cefpodoxime, cefprozil, cefuroxime, cephalexin,and loracarbef when used for therapy of uncomplicated urinary tractinfections due to E. coli, Klebsiella pneumoniae, and Proteusmirabilis. Previous result entered on 07/06/2020 05:29 ET Gram negative rodsUrine Culture,Comprehensive: T3Gbfnqvuodtz coli Flag: APatient: EMILIANO Lopez Order: [id number] Page 3Culture: CULTURE URINE Status: Final ISOLATE 1 Escherichia coli Isolate 1Antibiotic ARMANDO IntUnits ug/mL ----Amoxicillin/Clavulanic Acid S S . . . . . .20-8Ampicillin R R . . . . . .28-1Cefepime S S . . . . . .6644-9Ceftriaxone S S . . . . . .141-2Cefuroxime S S . . . . . .145- 3Ciprofloxacin S S . . . . . .185-9Ertapenem S S . . . . . .29609-9Edmuajdyqi S S . . . . . .267-5Imipenem S S . . . . . .279-0Levofloxacin S S . . . . . .36204-7Chfjmsnhv S S . . . . . .6652-2Nitrofurantoin S S . . . . . .363-2Piperacillin/Tazobactam S S . . . . . .412-7Tetracycline S S . . . . . .496-0Tobramycin S S . . . . . .508-2Trimethoprim/Sulfa S S . . . . . .516-5P1 Test performed by: [facility] #: [id number] [address] [place] [address] [id number] [facility] [id number] Director : Brennon Fisher MD NPI #:Supervisor Shearing : 07/06/20.0649.XMT.SENT REF 07/07/20.XMT.SENT REF 07/07/20. .to NEIL CARRILLO via fax ID Date Data Source [id number] 07/02/2020 03:00:00 PM EST [facility] ([facility]) Name Value Range Interpretation Code Description Data Bria rce(s) Supporting Document(s) Choriogonadotropin.beta subunit ( test) [Pres ence] in Urine Laboratory test result [facility] ([facility]) ID Date Data Source [id number] 07/02/2020 03:00:00 PM EST [facility] ([facility]) Name Value Range Interpretation Code Description Data Bria rce(s) Supporting Document(s) Color of Urine Laboratory test result [facility] ([facility]) Appearance of Urine Laboratory test result [facility] ([facility]) Spec Pass Christian 1.030 1.001-1.030 [facility] ([facility]) pH of Urine by Test strip 6 5-9 [facility] ([facility]) Nitrate [Presence] in Urine Laboratory test result [facility] ([facility]) Protein [Presence] in Urine by Test strip Laboratory test result [facility] ([facility]) Leukocytes Laboratory test result Above high normal [facility] ([facility]) Inhouse Glucose Laboratory test result [facility] ([facility]) Ketones [Presence] in Urine by Test strip Laboratory test result [facility] ([facility]) Bilirubin.total [Presence] in Urine by Test strip Laboratory test res ult [facility] ([facility]) Blood type and Indirect antibody screen panel - Blood Laboratory test result [facility] ([facility]) Urobilinogen Laboratory test result [facility] ([facility]) ID Date Data Source [id number] 06/10/2020 06:59:00 AM [facility] PATH SPEC #:: [id number] Name Value Range Interpretation Code Description Data Bria rce(s) Supporting Document(s) Pathology studies (set) See scanned report [facility] ID Date Data Source [id number] 05/31/2020 10:15:00 AM [facility] ([facility]) Name Value Range Interpretation Code Description Data Bria rce(s) Supporting Document(s) Reported Physicians See Note Reported Physici ans [place] ([facility]) Note: Reported Physicians:Ordering: Vianey CaceresAttending: Vianey Reis ID Date Data Source [id number] 05/31/2020 10:15:00 AM EST [place] ([facility]) Name Value Range Interpretation Code Description Data Bria rce(s) Supporting Document(s) Pathology studies (set) See scanned report Path ology studies [place] ([facility]) Note: Responsible Observer: SURGICAL PAT H SURGICAL PATHOLOGY 805.7190 (A) Notes [TIMP] See Note NOTES [place] ([facility]) Note: PATH SPEC #:: [id number] ID Date Data Source [id number] 04/02/2020 12:33:00 PM [facility] [address] [place] [address] [phone] NAME SEX PT STATUS ACCOUNT NUMBER KAYDEN CUMMINGS [facility] ER [id number] ORDERING PHYSICIAN LOCATION MEDICAL RECORD NO. Tre Esquivel MD ER [id number] ATTENDING PHYSICIAN DATE OF DATE OF EXAM/TIME Vianey Reis MD 1995 04/02/201229 TYPE / EXAM Xray Chest One View REASON FOR EXAM cough sob Clinical History/Indication for Exam: cough sob RADIOGRAPH OF THE CHEST 1 VIEW INDICATION: cough sob COMPARISON: No relevant prior studies available. FINDINGS: Lungs: Unremarkable. No consolidation. Pleural space: Unremarkable. No pneumothorax. Heart: Unremarkable. No cardiomegaly. Mediastinum: Unremarkable. Bones/joints: Unremarkable. IMPRESSION: Normal chest x-ray. REPORT SIGNATURE ON FILE 04/02/2020 (12:33 Eastern Time ) Signed by: Fernando Orellana M.D. Reported By Fernando Orellana MD on 04/02/20 1233 Signed By Fernando Orellana MD on 04/02/20 1233 Date Time CC: Vianey Reis MD; Fernadno Orellana MD Techn: FROSA Trans Dt/Tm: Trans by: DT Prt Dt/Tm: [id number]: Total DLP = 0.00 mGy-cm Fluoroscopy Time (in secs): Name Value Range Interpretation Code Description Data Bria rce(s) Supporting Document(s) ID Date Data Source [id number] 04/02/2020 11:28:00 AM [facility] ED Physician Documentation NAME: KAYDEN CUMMINGS : 1995 AGE: 25 MR#: [id number] SERVICE DATE: 04/02/[address]: Tre Esquivel MD PRIMARY CARE DR: Vianey Reis MD ROOM#: HPI (Adult, General) General Chief Complaint: Multi system (Adult) Stated Complaint: R/O COVID Resident LTC, travel outisde home, exposure to hot tubs:: No Time Seen by Provider: 04/02/20 10:16 Source: patient Exam Limitations: no limitations History of Present Illness Initial Comments: 25-year-old white female complaining of about 1 week of muscle aches sore throat cough. Patient has also noticed loss of smell and taste. She denies any chest pain has had some shortness of breath but not at present. The been no hemoptysis or sputum. She denies any nausea vomiting abdominal pain or diarrhea. She has felt somewhat feverish and chills but not at present. 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 Past Medical History Has Been Reviewed Allergies/Home Meds Allergies Allergy/AdvReac Type Severity Reaction Status Date / Time ciprofloxacin [From Cipro] Allergy Severe blistering Verified 05/23/19 07:14 sunburn amoxicillin Allergy Mild Rash Verified 05/23/19 07:14 labetalol AdvReac Severe Myalgia Verified 04/16/19 03:14 doxycycline AdvReac Mild GI Upset Verified 05/23/19 07:14 sumatriptan [From Imitrex] AdvReac Mild Nausea/Vomi Verified 05/23/19 07:14 t/Gastric sertraline AdvReac Unknown Other, not Verified 05/23/19 07:14 listed Home Medications Medication Instructions Recorded Confirmed Last Taken Type vit-iron fum-folic ac 1 ea PO DAILY tab 05/02/18 04/16/19 04/14/19 History clonazepam 0.5 mg PO BID 04/16/19 04/16/19 04/15/19 22:47 History ibuprofen 800 mg PO Q8HPRN PRN 04/16/19 04/16/19 Unknown History lorazepam 1 mg PO TID PRN #9 tab 04/16/19 Unknown Rx alprazolam 0.5 mg PO BID PRN #7 tab 10/10/19 Unknown Rx azithromycin [Zithromax Z-Alex] 250 mg PO DAILY 5 Days #5 tab 04/02/20 Unknown Rx Medication list updated and reviewed:: Yes Pain Assessment Pain Location: Sore throat Pain Description: Dull, Acute and Constant Pain Pain Intensity: 2 Pain Scale Used: Numeric Scale Pain Radiation Location: None ER plan Plan of care and ER treatment: An ER treatment plan was discussed with patient and family, Patient encouraged to ask questions about plan and ER treatments and Patient agrees with ER plan of care PMH (from Triage) Patient Medical History PMH Reviewed/Updated as Needed: Yes PMH/PSH from Triage: Medical History (Updated 05/23/19 @ 01:37 by Valeriano Pittman) Headache (Medical) Surgical History (Updated 04/16/19 @ 03:21 by Radhika Garcia) delivery delivered (Surgical) O82 History of - surgery (Surgical) wisdom teeth extraction Female History LMP:: Currently has menses : No Lactating mother:: No Hx Drug Resistant Infections Hx MRSA: (Methicillin-resistant Staphylococcus aureus): No Hx VRE (Vancomycin-resistant enterococci): No Hx C.Diff: No Hx CRKP: No Hx Other Resistant Infection?: No Isolation: Airborne Hx Recent Travel Out of the country within 10 days (where): No Hx Fever: No Hx Fever with a rash?: No Nurse screening for coronavirus: Recent Travel outside the No country (where) Has patient experienced Yes coronavirus symptoms Coronavirus symptoms lower respiratory illness experienced Social History Does patient have suicidal/homicidal thoughts or ideation?: No Are you in a relationship with/Does anyone hit you, yell/swear at you, steal from you?: No Substance Use Hx Alcohol Use: No Hx Substance Use: No Hx Substance Use Treatment: No Second Hand Smoke Exposure: No Smoking Status: Never smoker Tobacco Use Hx Chewing Tobacco Use: No Vaccination History Hx/Date of Tetanus, Diphtheria Vaccination: Yes Hx/Date of Influenza Vaccination: Yes Hx/Date of Pneumococcal Vaccination: No Immunizations Up to Date: Yes PFSH Medical History Headache Surgical History delivery delivered History of - surgery Family History Mother Diabetes Father Diabetes Other Alcoholism GERD (gastroesophageal reflux disease) Heart disease Hyperlipidemia Hypertension Kidney disease Stroke Social History Does the Patient have a Healthcare Proxy: Yes (Rahul) Does Patient have a DNR?: No Does Patient have a Living Will?: No Advance Directives on File or in chart?: No Hx Recent Travel (where): No Smoking Status: Never smoker Sickle cell No ROS Review of Systems Constitutional: Reports fever, chills and malaise; Denies sweats and weakness Eyes: Denies vision change ENT: Reports nasal congestion, throat pain and other (Decreased taste and smell); Denies ear pain, nasal pain, nasal discharge, post nasal drip and throat swelling Respiratory: Reports cough and SOB; Denies sputum, orthopnea, SOB w/exertion rest, SOB with excertion and SOB at rest Cardiovascular: Denies chest pain, palpitations and dyspnea on exertion Gastrointestinal: Reports No Symptoms/Complaints Genitourinary-Female: Denies dysuria and frequency Musculoskeletal: Denies neck pain and back pain Neurologic: Denies weakness and numbness Psychiatric: Reports No Symptoms/Complaints Hematological/Lymphatic: Reports No Symptoms/Complaints Allergic/Immunologic: Reports No Symptoms/Complaints Physical Exam General Physical Exam Narrative: White female no acute distress Limitations: no limitations General appearance: alert and in no apparent distress Head Head exam: Present atraumatic, normocephalic and normal inspection Eye Eye exam: Present normal apperance ENT ENT exam: Present normal orophraynx and mucous membranes moist Neck Neck exam: Present normal inspection, full ROM and supple Respiratory Respiratory exam: Present normal lung sounds bilaterally; Absent respiratory distress Cardiovascular Cardiovascular Exam: Present regular rate, normal rhythm and no murmur GI/Abdominal GI/Abdominal exam: Present soft; Absent distended, tenderness, guarding, rebound and rigid Extremities Exam Extremities exam: Present normal inspection; Absent pedal edema and calf tenderness Neurological Exam Neurological exam: Present alert and oriented X3 Psychiatric Psychiatric exam: Present normal affect and normal mood Skin Skin exam: Present warm, dry, intact and normal color; Absent rash Vital Signs Vital Signs: Vital Signs 04/02/20 10:04 Temperature 97.9 F Pulse Rate 81 Respiratory Rate 16 Blood Pressure 139/85 O2 Sat by Pulse Oximetry 98 MDM (comprehensive) Lab Data Labs: Microbiology 04/02/20 10:21 Throat Streptococcus Rapid Screen - Final 04/02/20 10:21 Nasopharyngeal Respiratory Panel (PCR) - Final No Organisms Detected Labs reviewed negative Radiology Data Radiology results: report reviewed Radiology impressions: Chest x-ray report reviewed negative Medical Decision Making Free Text/Narative:: 25-year-old white female complaining of body aches sore throat cough loss of smell and taste some difficulty breathing Will obtain Covid testing rapid strep chest x-ray 11:37 AM awaiting results of test Chest x-ray negative Labs negative Patient has frontal sinus congestion tenderness on palpation Discussed with patient that her fatigue dizziness may be related to sinus Symptoms get worse will take antibiotics that are prescribed today Otherwise may take Sudafed for congestion Discharge Plan Admission/Discharge Dx Primary DC Diagnosis: Sinusitis, pharyngitis ED Provider: Tre Esquivel ED Status: Registered Time Seen by Provider: 04/02/20 10:16 Triaged At: 04/02/20 10:04 Condition Condition: Stable Discharge Detail Disposition: Home, Self-Care Med Rec New Prescriptions: New azithromycin [Zithromax Z-Alex] 250 mg tablet 250 mg PO DAILY 5 Days Qty: 5 RF: 0 No Action ibuprofen 800 mg tablet 800 mg PO Q8HPRN PRN (Reason: Pain) RF: 0 clonazepam 0.5 mg tablet 0.5 mg PO BID RF: 0 lorazepam 1 mg tablet 1 mg PO TID PRN (Reason: agitation) Qty: 9 RF: 0 alprazolam 0.5 mg tablet 0.5 mg PO BID PRN (Reason: anxiety) Qty: 7 RF: 0 vit-iron fum-folic ac 1 EACH tablet 1 ea PO DAILY RF: 0 Discharge Education Printouts: Pharyngitis (ED), Sinusitis (ED) Medications Medication reconciliation performed by provider at discharge: Yes Follow Up Care/Instructions Diet/Activity/Wound Care..: Your Covid test was negative Your strep test was negative As we discussed you have sinus congestion which may be causing your dizziness and fatigue Could try Sudafed for several days to see if any improvement If not may take Zithromax as prescribed Follow-up your doctor 1 week if not completely improved *Discharge Patient* Discharge Orders: Discharge Order (Routine); Ordered 04/02/20 Ordered By: Tre Esquivel Interventions Interventions: ED General Adult Last Done: 04/02/20 10:09 Report Signers: <Electronically signed by Tre Esquivel MD> Tre Esquivel MD 04/02/20 1335 Tre Esquivel MD SIGNATURE DA Report Cosigners: D: ISAURA 04/02/20 1128 T: ISAURA 04/02/20 1128 CC: Vianey Reis MD Name Value Range Interpretation Code Description Data Bria rce(s) Supporting Document(s) ID Date Data Source [id number] 04/02/2020 11:39:00 AM [facility] THIS RP PANEL TESTS FOR SARS-CoV -2,(COVID-19)FilmArray Respiratory Panel is a Multiplexed NAAT-PCR testNORMAL VALUE FOR ALL 20 PATHOGENS IS "NOT DETECTED".The FilmArray RP panel detects Influenza A H1,H3 [id number] H1 viruses,Influenza B virus, Respiratory syncytialvirus, Human metapneumovirus,Parainfluenza virus 1,2,3, and4, Adenovirus,Rhino/Enterovirus,Coronavirus HKU 1, Nl63,OC43, and 229E,Bordetella pertussis, Bordetellaparapertussis, Mycoplasma pneumoniae and Chlamydiapneumoniae, SARS-CoV-2 (COVID 19).THIS TEST HAS NOT BEEN EVALUATED FOR USE WITH SPECIMENSOTHER THAN NASOPHARYNGEAL SWAB SPECIMENS.THE PERFORMANCE OF THIS TEST HAS NOT BEEN ESTABLISHED FORPATIENTS WITHOUT SIGNS AND SYMPTOMS OF RESPIRATORYINFECTION.RESULTS FROM THIS TEST MUST BE CORRELATED WITH CLINICALHIST ORY, EPIDEMIOLOGICAL DATA , AND OTHER DATA AVAILABLE [...] TRACT INFECTION THAT ISNOT DETECTED BY A NASOPHARYNGEAL SWAB SPECIMEN.No Organisms Detected @04/02/20 1204: Throat strep sc added. R FLXG = THSS. @04/02/20 1204: Throat strep sc added. R FLXG = THSS. Name Value Range Interpretation Code Description Data Bria rce(s) Supporting Document(s) ID Date Data Source [id number] 04/03/2020 10:57:00 AM [facility] THIS RP PANEL TESTS FOR SARS-CoV -2,(COVID-19)FilmArray Respiratory Panel is a Multiplexed NAAT-PCR testNORMAL VALUE FOR ALL 20 PATHOGENS IS "NOT DETECTED".The FilmArray RP panel detects Influenza A H1,H3 [id number] H1 viruses,Influenza B virus, Respiratory syncytialvirus, Human metapneumovirus,Parainfluenza virus 1,2,3, and4, Adenovirus,Rhino/Enterovirus,Coronavirus HKU 1, Nl63,OC43, and 229E,Bordetella pertussis, Bordetellaparapertussis, Mycoplasma pneumoniae and Chlamydiapneumoniae, SARS-CoV-2 (COVID 19).THIS TEST HAS NOT BEEN EVALUATED FOR USE WITH SPECIMENSOTHER THAN NASOPHARYNGEAL SWAB SPECIMENS.THE PERFORMANCE OF THIS TEST HAS NOT BEEN ESTABLISHED FORPATIENTS WITHOUT SIGNS AND SYMPTOMS OF RESPIRATORYINFECTION.RESULTS FROM THIS TEST MUST BE CORRELATED WITH CLINICALHIST ORY, EPIDEMIOLOGICAL DATA , AND OTHER DATA AVAILABLE [...] TRACT INFECTION THAT ISNOT DETECTED BY A NASOPHARYNGEAL SWAB SPECIMEN.No Organisms Detected @04/02/20 1204: Throat strep sc added. R FLXG = THSS. @04/02/20 1204: Throat strep sc added. R FLXG = THSS. Name Value Range Interpretation Code Description Data Bria rce(s) Supporting Document(s) Throat culture strep No Beta Strep isolated [facility] ID Date Data Source [id number] 04/03/2020 10:57:[address] [facility] THIS RP PANEL TESTS FOR SARS-CoV -2,(COVID-19)FilmArray Respiratory Panel is a Multiplexed NAAT-PCR testNORMAL VALUE FOR ALL 20 PATHOGENS IS "NOT DETECTED".The FilmArray RP panel detects Influenza A H1,H3 [id number] H1 viruses,Influenza B virus, Respiratory syncytialvirus, Human metapneumovirus,Parainfluenza virus 1,2,3, and4, Adenovirus,Rhino/Enterovirus,Coronavirus HKU 1, Nl63,OC43, and 229E,Bordetella pertussis, Bordetellaparapertussis, Mycoplasma pneumoniae and Chlamydiapneumoniae, SARS-CoV-2 (COVID 19).THIS TEST HAS NOT BEEN EVALUATED FOR USE WITH SPECIMENSOTHER THAN NASOPHARYNGEAL SWAB SPECIMENS.THE PERFORMANCE OF THIS TEST HAS NOT BEEN ESTABLISHED FORPATIENTS WITHOUT SIGNS AND SYMPTOMS OF RESPIRATORYINFECTION.RESULTS FROM THIS TEST MUST BE CORRELATED WITH CLINICALHIST ORY, EPIDEMIOLOGICAL DATA , AND OTHER DATA AVAILABLE [...] TRACT INFECTION THAT ISNOT DETECTED BY A NASOPHARYNGEAL SWAB SPECIMEN.No Organisms Detected @04/02/20 1204: Throat strep sc added. R FLXG = THSS. @04/02/20 1204: Throat strep sc added. R FLXG = THSS. Name Value Range Interpretation Code Description Data Bria rce(s) Supporting Document(s) Strep Antigen throat Negative by antigen detection methods [facility] ID Date Data Source [id number] 04/02/2020 10:21:00 AM [facility] ([facility]) Name Value Range Interpretation Code Description Data Bria rce(s) Supporting Document(s) Reported Physicians See Note Reported Physici ans [place] ([facility]) Note: Reported Physicians:Ordering: Melissa Chambersending: Lindsay Esquivel To: Vianey Reis ID Date Data Source [id number] 04/02/2020 10:21:00 AM [facility] ([facility]) Name Value Range Interpretation Code Description Data Bria rce(s) Supporting Document(s) Notes [TIMP] See Note NOTES [place] ([facility]) Note: @04/02/20 1204: Throat strep sc ad ded. RFLXG = THSS. Throat culture strep No Beta Strep isolated Thr oat culture strep [place] ([facility]) ID Date Data Source [id number] 04/02/2020 10:21:00 AM [facility] ([facility]) Name Value Range Interpretation Code Description Data Bria rce(s) Supporting Document(s) Strep Antigen throat Negative by antigen detection methods Strep Antigen throat [place] ([facility]) Notes [TIMP] See Note NOTES [place] ([facility]) Note: @04/02/20 1204: Throat strep sc ad ded. RFLXG = THSS. ID Date Data Source [id number] 04/02/2020 10:21:00 AM [facility] ([facility]) Name Value Range Interpretation Code Description Data Bria rce(s) Supporting Document(s) Respiratory pathogens DNA and RNA panel - Nasopharynx by Target amplification with non-probe based detection See Note R kingsley path DNA+RNA Pnl Nph ALEJANDRO+non-probe [place] ([facility]) Note: THIS RP PANEL TESTS FOR SA RS-CoV-2,(COVID-19)FilmArray Respiratory Panel is a Multiplexed NAAT-PCR testNORMAL VALUE FOR ALL 20 PATHOGENS IS "NOT DETECTED".The FilmArray RP panel detects Influenza A H1,H3 [id number] H1 viruses,Influenza B virus, Respiratory syncytialvirus, Human metapneumovirus,Parainfluenza virus 1,2,3, and4, Adenovirus,Rhino/Enterovirus,Coronavirus HKU 1, Nl63,OC43, and 229E,Bordetella pertussis, Bordetellaparapertussis, Mycoplasma pneumoniae and Chlamydiapneumoniae, SARS-CoV-2 (COVID 19).THIS TEST HAS NOT BEEN EVALUATED FOR USE WITH SPECIMENSOTHER THAN NASOPHARYNGEAL SWAB SPECIMENS.THE PERFORMANCE OF THIS TEST HAS NOT BEEN ESTABLISHED FORPATIENTS WITHOUT SIGNS AND SYMPTOMS OF RESPIRATORYINFECTION.RESULTS FROM THIS TEST MUST BE CORRELATED WITH CLINICAL HISTORY, EPIDEMIOLOGICAL DATA , AND OTHER DATA AVAILABLE [...] TRACT INFECTION THAT ISNOT DETECTED BY A NASOPHARYNGEAL SWAB SPECIMEN.NOSNo Organisms [id number] Organisms Detected ID Date Data Source [id number] 04/02/2020 10:21:00 AM [facility] ([facility]) Name Value Range Interpretation Code Description Data Bria rce(s) Supporting Document(s) Reported Physicians See Note Reported Physici ans [place] ([facility]) Note: Reported Physicians:Ordering: Melissa Chambersending: Lindsay Esquivel To: Vianey Reis ID Date Data Source [id number] 04/02/2020 10:21:00 AM EST [facility] ([facility]) Name Value Range Interpretation Code Description Data Bria rce(s) Supporting Document(s) Strep Antigen throat Negative by antigen detection methods Strep Antigen throat [place] ([facility]) Notes [TIMP] See Note NOTES [facility] ([facility]) Note: @04/02/20 1204: Throat strep sc ad ded. RFLXG = THSS. ID Date Data Source [id number] 04/02/2020 12:00:00 AM [facility] Name Value Range Interpretation Code Description Data Bria rce(s) Supporting Document(s) SARS-CoV2 Rapid PCR [facility] This lab was ordered by [facility] pital - OP and reported by [facility]. Procedure Social History Code Duration Value Status Description Data Source(s ) Smoking 03/03/2021 12:00:00 AM EDT Never Smoker completed Never S moker eCW1 ([facility]) Smoking 02/23/2021 12:00:00 AM EDT Never Smoker completed Never S moker eCW1 ([facility]) Smoking 02/23/2021 12:00:00 AM EDT Never Smoker completed Never S moker eCW1 ([facility]) Smoking 02/23/2021 12:00:00 AM EDT Never Smoker completed Never S moker eCW1 ([facility]) Smoking 02/09/2021 12:00:00 AM EDT Never Smoker completed Never S moker eCW1 ([facility]) Smoking 02/09/2021 12:00:00 AM EDT Never Smoker completed Never S moker eCW1 ([facility]) Smoking 01/16/2021 12:00:00 AM EDT Never Smoker completed Never S moker eCW1 ([facility]) Smoking 01/16/2021 12:00:00 AM EDT Never Smoker completed Never S moker eCW1 ([facility]) Alcohol intake 01/14/2021 12:00:00 AM EDT Ex-drinker (finding) comp leted Ex- drinker (finding) [facility] Tobacco use and exposure 01/14/2021 12:00:00 AM EDT Never used co mpleted Never used [facility] Smoking 01/14/2021 12:00:00 AM EDT Never smoker completed Never s [facility] Smoking 12/20/2020 12:00:00 AM EDT Never Smoker completed Never S moker eCW1 ([facility]) Smoking 11/28/2020 12:00:00 AM EDT Never Smoker completed Never S moker eCW1 ([facility]) Smoking 11/11/2020 12:00:00 AM EDT Never Smoker completed Never S moker eCW1 ([facility]) Smoking 10/04/2020 12:00:00 AM EDT Never Smoker completed Never S moker eCW1 ([facility]) Smoking 10/04/2020 12:00:00 AM EDT Never Smoker completed Never S moker eCW1 ([facility]) Smoking 10/04/2020 12:00:00 AM EDT Never Smoker completed Never S moker eCW1 ([facility]) 06/14/2020 12:00:00 AM EST completed [facility] 04/02/2020 11:35:48 AM EST No completed No [facility] 04/02/2020 11:35:48 AM EST No completed No [facility] 04/02/2020 11:35:48 AM EST Never smoker completed Never [facility] Smoking 04/02/2020 11:35:00 AM EST Never smoker completed Never [facility] Vital Signs ID Date Data Source [id number] Name Value Range Interpretation Code Description Data Source(s) Body weight 203.4 [lb_av] 203.4 [lb_av] eCW1 ([facility]) Body weight 92.26 kg 92.26 kg W1 ([facility]) Body height 68 [in_i] 68 [in_i] W1 ([facility]) Body mass index (BMI) [Ratio] 30.927 kg/m2 30.9 27 kg/m2 [facility] ([facility]) Systolic blood pressure 124 mm[Hg] 124 mm[Hg] e CW1 ([facility]) Diastolic blood pressure 84 mm[Hg] 84 mm[Hg] eCW1 ([facility]) Body weight 203.8 [lb_av] 203.8 [lb_av] eCW1 ([facility]) Body weight 92.44 kg 92.44 kg eCW1 ([facility]) Body height 68 [in_i] 68 [in_i] eCW1 ([facility]) Body mass index (BMI) [Ratio] 30.988 kg/m2 30.9 88 kg/m2 eCW1 ([facility]) Systolic blood pressure 126 mm[Hg] 126 mm[Hg] e CW1 ([facility]) Diastolic blood pressure 82 mm[Hg] 82 mm[Hg] eCW1 ([facility]) Body height 68 [in_i] 68 [in_i] eCW1 ([facility]) Body weight 204 [lb_av] 204 [lb_av] eCW1 ([facility]) Body mass index (BMI) [Ratio] 31.018 kg/m2 31.0 18 kg/m2 eCW1 ([facility]) Systolic blood pressure 122 mm[Hg] 122 mm[Hg] e CW1 ([facility]) Diastolic blood pressure 72 mm[Hg] 72 mm[Hg] eCW1 ([facility]) Body weight 202 [lb_av] 202 [lb_av] eCW1 ([facility]) Body weight 91.63 kg 91.63 kg eCW1 ([facility]) Body height 68 [in_i] 68 [in_i] eCW1 ([facility]) Body mass index (BMI) [Ratio] 30.71 kg/m2 30.71 kg/m2 eCW1 ([facility]) Systolic blood pressure 116 mm[Hg] 116 mm[Hg] e CW1 ([facility]) Diastolic blood pressure 70 mm[Hg] 70 mm[Hg] eCW1 ([facility]) Body weight 201.8 [lb_av] 201.8 [lb_av] eCW1 ([facility]) Body weight 91.53 kg 91.53 kg eCW1 ([facility]) Body height 68 [in_i] 68 [in_i] eCW1 ([facility]) Body mass index (BMI) [Ratio] 30.684 kg/m2 30.6 84 kg/m2 eCW1 ([facility]) Systolic blood pressure 118 mm[Hg] 118 mm[Hg] e CW1 ([facility]) Diastolic blood pressure 72 mm[Hg] 72 mm[Hg] eCW1 ([facility]) Body weight 200 [lb_av] 200 [lb_av] eCW1 ([facility]) Body weight 90.72 kg 90.72 kg eCW1 ([facility]) Body height 68 [in_i] 68 [in_i] eCW1 ([facility]) Body mass index (BMI) [Ratio] 30.41 kg/m2 30.41 kg/m2 eCW1 ([facility]) Systolic blood pressure 110 mm[Hg] 110 mm[Hg] e CW1 ([facility]) Diastolic blood pressure 78 mm[Hg] 78 mm[Hg] eCW1 ([facility]) Body weight 89.36 kg 89.36 kg eCW1 ([facility]) Body weight 197 [lb_av] 197 [lb_av] eCW1 ([facility]) Systolic blood pressure 118 mm[Hg] 118 mm[Hg] e CW1 ([facility]) Body mass index (BMI) [Ratio] 29.954 kg/m2 29.9 54 kg/m2 eCW1 ([facility]) Diastolic blood pressure 78 mm[Hg] 78 mm[Hg] eCW1 ([facility]) Body height 68 [in_i] 68 [in_i] eCW1 ([facility]) Body weight 195 [lb_av] 195 [lb_av] eCW1 ([facility]) Body weight 88.45 kg 88.45 kg eCW1 ([facility]) Body height 68 [in_i] 68 [in_i] eCW1 ([facility]) Body mass index (BMI) [Ratio] 29.65 kg/m2 29.65 kg/m2 [facility]CW[facility] [facility] [place] Systolic blood pressure 118 mm[Hg] 118 mm[Hg] e CW1 ([facility] [place]) Diastolic blood pressure 70 mm[Hg] 70 mm[Hg] eCW1 ([facility] [place]) Body weight 192.8 [lb_av] 192.8 [lb_av] eCW1 ([facility]) Body height 68 [in_i] 68 [in_i] eCW1 ([facility]) Body mass index (BMI) [Ratio] 29.315 kg/m2 29.3 15 kg/m2 eCW1 ([facility] [place]) Systolic blood pressure 124 mm[Hg] 124 mm[Hg] e CW1 ([facility] [place]) Diastolic blood pressure 76 mm[Hg] 76 mm[Hg] eCW1 ([facility] [place]) Body weight 191.4 [lb_av] 191.4 [lb_av] eCW1 ([facility]) Body height 68 [in_i] 68 [in_i] eCW1 ([facility]) Body mass index (BMI) [Ratio] 29.102 kg/m2 29.1 02 kg/m2 eCW1 ([facility] [place]) Systolic blood pressure 132 mm[Hg] 132 mm[Hg] e CW1 ([facility] [place]) Diastolic blood pressure 74 mm[Hg] 74 mm[Hg] eCW1 ([facility] [place]) Body weight 185.8 [lb_av] 185.8 [lb_av] eCW1 ([facility]) Body height 68 [in_i] 68 [in_i] eCW1 ([facility]) Body weight 84.28 kg 84.28 kg eCW1 ([facility]) Body mass index (BMI) [Ratio] 28.25 kg/m2 28.25 kg/m2 eCW1 ([facility] [place]) Systolic blood pressure 116 mm[Hg] 116 mm[Hg] e CW1 ([facility] [place]) Diastolic blood pressure 68 mm[Hg] 68 mm[Hg] eCW1 ([facility] [place]) Systolic blood pressure 110 mm[Hg] 110 mm[Hg] G REENWAY ([facility]) Diastolic blood pressure 70 mm[Hg] 70 mm[Hg] ERMA ([facility]) Heart rate 80 /min 80 /min [place] ([facility]) Respiratory rate 20 /min 20 /min [place]) Body height 68 [in_i] 68 [in_i] [place] ([facility]) Body weight 185 [lb_av] 185 [lb_av] [place]) Body mass index (BMI) [Ratio] 28.1 kg/m2 28.1 k g/m2 [place] ([facility]) Body surface area Derived from formula 1.98 m2 1.98 m2 [place] ([facility]) Respiratory rate 20 /min 20 /min [place]) Body height 68 [in_i] 68 [in_i] [place] ([facility]) Body weight 186.125 [lb_av] 186.125 [lb_av] [facility] Systolic blood pressure 114 mm[Hg] 114 mm[Hg] G [place] ([facility]) Diastolic blood pressure 70 mm[Hg] 70 mm[Hg] [place]) Heart rate 68 /min 68 /min [place] ([facility]) Body mass index (BMI) [Ratio] 28.3 kg/m2 28.3 k g/m2 [facility]) Body surface area Derived from formula 1.98 m2 1.98 m2 [place] ([facility]) Body height 68 [in_i] 68 [in_i] [place] ([facility]) Systolic blood pressure 136 mm[Hg] 136 mm[Hg] M EDENT ([facility]) Diastolic blood pressure 76 mm[Hg] 76 mm[Hg] MEDENT ([facility]) Heart rate 97 /min 97 /min [place] ([facility]) Body temperature 98.4 [degF] 98.4 [degF] [facility] Oxygen saturation in Arterial blood by Pulse oximetry 98 % 98 % [facility]) Body height 68 [in_i] 68 [in_i] [place] ([facility]) Systolic blood pressure 128 mm[Hg] 128 mm[Hg] [place] ([facility]) Diastolic blood pressure 64 mm[Hg] 64 mm[Hg] [place] ([facility]) Heart rate 72 /min 72 /min [place] ([facility]) Respiratory rate 22 /min 22 /min [place] ([facility]) Systolic blood pressure 136 mm[Hg] 136 mm[Hg] [facility] Diastolic blood pressure 74 mm[Hg] 74 mm[Hg] [place] ([facility]) Heart rate 100 /min 100 /min [place] ([facility] [facility]) Respiratory rate 18 /min 18 /min [place] ([facility]) Body temperature 98.4 [degF] 98.4 [degF] [facility] ([facility]) Body height 68 [in_i] 68 [in_i] [place] ([facility]) Body weight 191 [lb_av] 191 [lb_av] [place] ([facility]) Body mass index (BMI) [Ratio] 29.0 kg/m2 29.0 k g/m2 [place] ([facility]) Body surface area Derived from formula 2.00 m2 2.00 m2 [place] ([facility]) Oxygen saturation in Arterial blood by Pulse oximetry 98 % 98 % [place] ([facility]) Systolic blood pressure 108 mm[Hg] 108 mm[Hg] [place] ([facility]) Diastolic blood pressure 72 mm[Hg] 72 mm[Hg] [place] ([facility]) Heart rate 86 /min 86 /min [place] ([facility] [facility]) Respiratory rate 20 /min 20 /min [place] ([facility]) Body height 68 [in_i] 68 [in_i] [place] ([facility]) Body weight 188 [lb_av] 188 [lb_av] [place] ([facility]) Body mass index (BMI) [Ratio] 28.6 kg/m2 28.6 k g/m2 [place] ([facility]) Body surface area Derived from formula 1.99 m2 1.99 m2 [place] ([facility]) ID Date Data Source [id number] 01/24/2021 08:14:36 AM [facility] Name Value Range Interpretation Code Description Data Source(s) WEIGHT RECORDED 197 lb 197 lb [facility] Body height Measured 68 in 68 in [facility] Patient Treatment Plan of Care Planned Activity Planned Date Details Description Data Source (s) labetalol (TRANDATE) injection 20 mg 01/14/2021 05:36:08 PM [facility] Cephalexin 250 MG Oral Capsule 08/16/2020 12:00:00 AM [facility] ([facility]) Cephalexin 500 MG Oral Capsule 08/15/2020 12:00:00 AM [facility] ([facility]) Cephalexin 500 MG Oral Capsule 08/15/2020 12:00:00 AM [facility] ([facility]) NITROFURANTOIN, MACROCRYSTALS 25 MG / Ni trofurantoin, Monohydrate 75 MG Oral Capsule 08/09/2020 12:00:00 AM [facility] ([facility]) Cephalexin 500 MG Oral Capsule 05/15/2019 12:00:00 AM [facility] ([facility]) Etonogestrel 68 MG Drug Implant [Nexplanon] 03/06/2019 12:00:00 AM [facility] ([facility]) Acetaminophen 325 MG / butalbital 50 MG / Caffeine 40 MG Oral Capsule 06/18/2018 12:00:00 AM [facility] ([facility]) PNV-DHA 27-0.6-0.4-300MG Oral Capsule 05/21/2018 12:00:00 AM [facility] ([facility])
[2021-03-12 03:44] LABS: HEMATOCRIT 41.4 % (36.0-47.0); HEMOGLOBIN 14.1 g/dl (12.0-15.5); MEAN CORPUSCULAR HEMOGLOBIN 31.1 pg (27.0-33.0); MEAN CORPUSCULAR HGB CONC 34.1 g/dl (32.0-36.5); MEAN CORPUSCULAR VOLUME 91.2 fl (80.0-96.0); PLATELET COUNT, AUTOMATED 199 10^3/uL (150-450); RED BLOOD COUNT 4.54 10^6/uL (4.00-5.40); WHITE BLOOD COUNT 10.2 10^3/uL (4.0-10.0)
[2021-03-12] MEDS ORDERED: FENTANYL 2MCG/ML ROPIVACAINE 0.2% IN 0.9% NACL 100ML IVBAG As Ordered ONE (03:47)
--- NOTE | 2021-03-12 03:51 | HPEPDOC ---
Obstetrical History & Physical General Date of Admission Mar 12, 2021 at 03:35 History of Present Illness 26yo at 40w5d EGA who presents to labor and delivery with painful, regul ar contractions. Denies lof/vb. +FM Chief Complaint: Contractions, term Age: 26 : 2 Term: 1 Pre-term: 0 Abortions: 0 Livin Care Care: Good Care Dating Final EDC: Mar 07, 2021 Antepartum Course Diagnos(e)s 1. h/o prior section 2. CYP2D6 disorder of mitochondrial metabolism 3. 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 Factor V Leiden 2. CYP2D6 disorder of mitochondrial metabolism Surgical History: section Family History Significant Family History: No pertinent family hx Social History Marital Status: Family situation: Spouse/partner home * Smoker: non-smoker Alcohol: Denies Drugs: denies Abuse Violence Screening Have you been hit/kicked/slapp: No Have you been sexually assault: No Imunizations Tdap status: current Allergies Coded Allergies: No Known Allergies (Unverified , 12/25/20) Medications Scheduled Cephalexin (Cephalexin) 250 Mg Tablet, 250 MG PO DAILY Cephalexin (Cephalexin) 500 Mg Capsule, 500 MG PO BID No.137/Iron/Folic Acd ( Vitamin Tablet) 1 Each Tablet, 1 TAB PO DAILY Physical Examination Physical Examination GENERAL: Alert and oriented times three. BREAST: . ABDOMEN: Gravid and non-tender to touch. FETUS: Is vertex (VTX) by US HEART RATE: Regular rate and rhythm. LUNGS: Clear to auscultation (CTA). EXTREMITIES: No edema. No clonus. Laboratory Data 24H LABS Laboratory Tests 2 03/12/21 03:34: CBC/BMP Pertinent Laboratoy Data Blood Type: O- RBC Antibody Screen: Negative HIV: Negative Hepatitis B: Negative Hepatitis C: Negative Rapid Plasma Reagin: Nonreactive Rubella: Unknown Chlamydia/Gonorrhea: Negative Group B Streptococcus: Negative Glucose Tolerance Test: 91 Vaginal Examination Dilation: 2cm Effacement: 70% Station: -2 Assessment Heart Rate (FHR): 120 Variability: Moderate Accelerations: Positive Decelerations: None Tocometer Contractions: Yes Assessment/Plan Assessment 26-year-old (G)2 para (P)1001 at 40w5d EGA Presents to Labor and Delivery (L&D) with painful regular contractions. Admitted for trial of labor. 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 Diet: clear liquid Group B Streptococcus (GBS) negative. Labs and intravenous (IV) per unit protocol. Lactated Ringers (LR): Bolus 1000 mL, then at 125 mL/hr. Anticipate normal spontaneous delivery (). C-S as appropriate. CHIQUI JAIME MD Mar 12, 2021 03:51
[2021-03-12] MEDS: LR 1,000 ML IV SCH ×2 (04:27→07:04)
[2021-03-12] MEDS: FENTANYL/ROPIVACAINE/NACL BAG 100 ML EPIDURAL SCH ×2 (05:30→12:50)
[2021-03-12] MEDS ORDERED: LACTATED RINGER'S 1000 ML IV PRN (05:30)
[2021-03-12] MEDS ORDERED: REFRIGERATOR IV KEYS XX PRN (05:30)
[2021-03-12] MEDS ORDERED: ePHEDrine SULFATE 25 MG/5 ML(5MG/ML) SYRINGE IV PRN (05:30)
[2021-03-12] MEDS ORDERED: diphenhydrAMINE 50MG/ML VIAL (J1200) IV PRN (05:30)
[2021-03-12] MEDS ORDERED: ONDANSETRON 4MG/2ML VIAL IV PRN ×2 (05:30→17:15)
[2021-03-12] MEDS ORDERED: EPIDURAL COMMENT XX SCH (05:30)
[2021-03-12] MEDS ORDERED: NALOXONE INJ 0.4MG/1ML VIAL (J2310 PER 1MG) IV PRN (05:30)
[2021-03-12] MEDS ORDERED: EPIDURAL/PCA KEYS XX PRN (05:30)
--- NOTE | 2021-03-12 07:42 | IPNPDOC ---
Obstetrical Progress Note Date of Service Mar 12, 2021 Subjective Pt is comfortable w/ epidural Objective Vital Signs Date Time Temp Pulse Resp B/P (MAP) Pulse Ox O2 Delivery O2 Flow Rate FiO2 03/12/21 07:04 60 18 130/76 (94) 03/12/21 07:02 97.7 Assessment Heart Rate (FHR): 130 Variability: Moderate Accelerations: Positive Decelerations: None Heart Rate Tracing: Category I Tocometer Contractions: Yes Frequency: irregular Sterile Vaginal Examination Dilation: 3 cm Effacement (%): 70% Station: -2 Cervical Consistency: Soft Cervical Position: Middle Postion/Presentation: Cephalic presentation Assessment and Plan Age: 26 : 2 Term: 1 Pre-term: 0 Abortions: 0 Livin Status: Reassuring Group B Streptococcus: Negative Anticipate: Vaginal Delivery (Will start RDP at this time) CHIQUI JAIME MD Mar 12, 2021 07:42
[2021-03-12] MEDS ORDERED: OXYTOCIN DRIP 30 UNITS in IV 1 EA IV SCH ×2 (07:45→17:30)
--- NOTE | 2021-03-12 13:51 | IPNPDOC ---
Obstetrical Progress Note Date of Service Mar 12, 2021 Subjective Pt comfortable w/ epidural Objective Vital Signs Date Time Temp Pulse Resp B/P (MAP) Pulse Ox O2 Delivery O2 Flow Rate FiO2 03/12/21 11:01 98.1 03/12/21 11:00 88 18 131/67 (88) Assessment Heart Rate (FHR): 120 Variability: Moderate Accelerations: Positive Decelerations: None Heart Rate Tracing: Category I Tocometer Contractions: Yes Frequency: irregular Sterile Vaginal Examination Dilation: 8 cm Effacement (%): 90% Station: -1 Cervical Consistency: Medium Cervical Position: Anterior Postion/Presentation: Cephalic presentation Assessment and Plan Age: 26 : 2 Term: 1 Pre-term: 0 Abortions: 0 Livin Status: Reassuring Group B Streptococcus: Negative Anticipate: Vaginal Delivery (AROMed for Mec at this time) CHIQUI JAIME MD Mar 12, 2021 13:51
[2021-03-12] MEDS ORDERED: MEASLES,MUMPS,RUBELLA VACCINE INJ (MMR-II) (90707) SC SCH (17:15)
[2021-03-12] MEDS ORDERED: DOCUSATE SODIUM 100MG CAPSULE PO PRN (17:15)
[2021-03-12] MEDS ORDERED: IBUPROFEN 600MG TAB PO PRN (17:15)
[2021-03-12] MEDS ORDERED: METHYLERGONOVINE MALEATE 0.2 MG TAB PO PRN (17:15)
[2021-03-12] MEDS ORDERED: RHOGAM 300 MCG (1500 IU) INJ (J2790) IM SCH (17:15)
[2021-03-12] MEDS ORDERED: DIBUCAINE 1% OINTMENT 30GM TOP PRN (17:15)
[2021-03-12] MEDS ORDERED: ACETAMINOPHEN 500 MG TAB PO PRN (17:15)
--- NOTE | 2021-03-12 17:23 | DNPDOC ---
[facility] Delivery Note Delivery Note DATE OF DELIVERY: 03/12/21 PREDELIVERY DIAGNOSIS: 40-5/7 weeks' gestation and labor. POST DELIVERY DIAGNOSIS: Delivered. PROCEDURE: vaginal after PRESS WORKER HELPER: Dr. Chiqui Jaime MD ANESTHESIA: epidural. ESTIMATED BLOOD LOSS: 350 mL. FINDINGS: 8 pound 12 ounce female infant, Score 9/9, loose nuchal cord times 1. DELIVERY SUMMARY: Patient is a 26-year-old 2 now para 2001 who was admitted to labor and delivery for labor. She made cervical change and was admitted. She received an epidural. After her epidural, her contractions spaced to q8min. She was started on pitocin and progressed quickly to 8cm. At that time she was ruptured artificially for thick meconium. She made further progress to fully dilated and +2 station. She pushed with excellent effort and delivered a vigorous female infant. The placenta delivered shortly after with some trailing membranes. She was found to have a second degree perineal that extended up to the right labia. Was repaired in two parts with 3.0 vicryl suture. Adequate hemostasis noted. Sponge and sharp count correct. CHIQUI JAIME MD Mar 12, 2021 17:23
[2021-03-13] MEDS ORDERED: IBUPROFEN 600MG TAB PO PRN (00:30)
[2021-03-13] MEDS: IBUPROFEN 800 MG TAB PO PRN ×3 (01:52→16:29)
[2021-03-13 06:00] VITALS: BP 112/72
[2021-03-13] MEDS: PRENATAL VITAMINS CHEWABLE TABLET PO SCH (08:11)
[2021-03-13 11:21] LABS: HEMATOCRIT 32.6 % (36.0-47.0); HEMOGLOBIN 10.9 g/dl (12.0-15.5); MEAN CORPUSCULAR HEMOGLOBIN 31.4 pg (27.0-33.0); MEAN CORPUSCULAR HGB CONC 33.4 g/dl (32.0-36.5); MEAN CORPUSCULAR VOLUME 93.9 fl (80.0-96.0); PLATELET COUNT, AUTOMATED 170 10^3/uL (150-450); RED BLOOD COUNT 3.47 10^6/uL (4.00-5.40); WHITE BLOOD COUNT 9.9 10^3/uL (4.0-10.0)
--- NOTE | 2021-03-13 12:19 | IPNPDOC ---
Progress Note Date of Service: Mar 13, 2021 Day#: 1 Progress Note SUBJECT: Nataliia is a 26-year-old 2 now Para 2002 status post uncomplicated spontaneous vaginal delivery at 40 5/7 weeks on 03/12/21 of a female 8 pounds 12 ounces (3970 grams) with post vaginal laceration and repair, doing well day # 1. She has been ambulating, voiding spontaneously without issue and tolerating regular diet. Breast feeding and bottle feeding without issue. Reports lochia is like a normal period. Patient is ambulating well. Pain relieved with ibuprofen. OBJECTIVE: VITAL SIGNS: Within normal limits, afebrile. Alert and oriented times three. Breathing comfortably on room air. Abdomen: Fundus firm at U-2. Soft, NTTP. Minimal lochia. ASSESSMENT: PP day 1 PLAN: 1. Discharge to home tomorrow. 2. Motrin for pain. 3. Encourage breast feeding and ambulation. 4. Continue supportive nursing care. VS, I&O, 24H, Fishbone Vital Signs/I&O Vital Signs Date Time Temp Pulse Resp B/P (MAP) Pulse Ox O2 Delivery O2 Flow Rate FiO2 03/13/21 06:00 97.6 73 17 112/72 (85) 98 Room Air I&O- Last 24 Hours up to 6 AM 03/13/21 06:00 Intake Total 4086 ml Output Total 1275 ml Balance 2811 ml Laboratory Data 24H LABS Laboratory Tests 2 03/12/21 20:27: Serology Scanned Report Hepatitis B Testing 03/13/21 10:40: Nucleated Red Blood Cells % (auto) 0.0 CBC/BMP Laboratory Tests 03/13/21 10:40 MADHU BOATENG CNM Mar 13, 2021 12:18
[2021-03-13 18:00] VITALS: BP 125/71
[2021-03-14] MEDS: IBUPROFEN 800 MG TAB PO PRN ×2 (03:37→11:47)
[2021-03-14 05:52] VITALS: BP 123/58
[2021-03-14] MEDS: PRENATAL VITAMINS CHEWABLE TABLET PO SCH (07:37)
--- NOTE | 2021-03-14 12:52 | IPNPDOC ---
Progress Note Date of Service: Mar 14, 2021 Day#: 2 Progress Note SUBJECT: Status post . She has been ambulating, voiding spontaneously with out issue and tolerating regular diet. Lochia decreasing/minimal. Pain is well- controlled. Denies headache, visual changes, right upper quadrant pain, shortness breath or chest pain. OBJECTIVE: VITAL SIGNS: Within normal limits, afebrile. Alert and oriented times three. Abdomen: Fundus firm at U-2. Soft, NTTP. ASSESSMENT: Status post uncomplicated spontaneous vaginal delivery. Vitals within normal limits, afebrile, hemodynamically stable with no evidence of infection. PLAN: Discharge to home today. Tylenol and Motrin for pain. Routine instructions/precautions reviewed. Routine PP visit in 6 weeks in clinic. VS, I&O, 24H, Fishbone Vital Signs/I&O Vital Signs Date Time Temp Pulse Resp B/P (MAP) Pulse Ox O2 Delivery O2 Flow Rate FiO2 03/14/21 05:52 97.9 61 18 123/58 (79) 98 Room Air DANNY JENNINGS DO Mar 14, 2021 12:52
== END 2021-03-14 13:45 | disposition home or self-care (01) | DRG 560 ==
LOC: M LDO 02:32 → M LDI 03:35 → M OBS 20:01
PROVIDERS: ADMIT Obstetrics & Gynecology; ATTEND Obstetrics & Gynecology
PROC: 10E0XZZ Delivery of Products of Conception, External Approach (ICD-10-PCS; principal; 2021-03-12)
PROC: 10907ZC Drainage of Amniotic Fluid, Therapeutic from Products of Conception, Via Natural or Artificial Opening (ICD-10-PCS; 2021-03-12)
PROC: 0KQM0ZZ Repair Perineum Muscle, Open Approach (ICD-10-PCS; 2021-03-12)
DX: O34.219 Maternal care for unspecified type scar from previous cesarean delivery (principal); Z3A.40 40 weeks gestation of pregnancy; Z37.0 Single live birth; O48.0 Post-term pregnancy; O77.0 Labor and delivery complicated by meconium in amniotic fluid; O69.81X0 Labor and delivery complicated by cord around neck, without compression, not applicable or unspecified; O70.1 Second degree perineal laceration during delivery

== ENCOUNTER 2021-05-31 22:40 | Emergency (ER) | payer BC, OTHER ==
[~2021-05-31] VITALS: Ht 172.7 cm; Wt 87.3 kg
[2021-05-31] MEDS ORDERED: IBUP200T46 PO (22:52)
[2021-05-31] MEDS ORDERED: ACETAMINOPHEN 325 MG TAB PO ONE (23:55)
[2021-06-01] MEDS ORDERED: IBUPROFEN 600MG TAB PO ONE (00:05)
[2021-06-01] MEDS ORDERED: NS 1,000 ML IV ONE (00:35)
[2021-06-01 00:59] LABS: RSV AMPLIFICATION NEGATIVE (NEGATIVE)
[2021-06-01] MEDS ORDERED: ISOVUE-370 76% 100ML VIAL As Ordered ONE (01:24)
[2021-06-01 01:30] LABS: BASO % 0.4 % (0.0-1.0); EOS % 0.2 % (0.0-3.0); HEMATOCRIT 42.7 % (36.0-47.0); HEMOGLOBIN 13.6 g/dl (12.0-15.5); LYMPH # 1.2 10^3/uL (1.5-5.0); MEAN CORPUSCULAR HEMOGLOBIN 29.1 pg (27.0-33.0); MEAN CORPUSCULAR HGB CONC 31.9 g/dl (32.0-36.5); MEAN CORPUSCULAR VOLUME 91.4 fl (80.0-96.0); MONO # 0.2 10^3/uL (0.0-0.8); MONO % 4.6 % (2.0-8.0); NEUTROPHILS # 3.3 10^3/uL (1.5-8.5); NEUTROPHILS % 68.4 % (36.0-66.0); PLATELET COUNT, AUTOMATED 198 10^3/uL (150-450); RED BLOOD COUNT 4.67 10^6/uL (4.00-5.40); WHITE BLOOD COUNT 4.8 10^3/uL (4.0-10.0)
[2021-06-01 01:54] LABS: BLOOD UREA NITROGEN 10 MG/DL (7-18); CALCIUM LEVEL 8.4 MG/DL (8.5-10.1); CARBON DIOXIDE LEVEL 28 MEQ/L (21-32); CHLORIDE LEVEL 110 MEQ/L (98-107); CREATININE FOR GFR 0.75 MG/DL (0.55-1.30); GLOMERULAR FILTRATION RATE > 60.0 (>60); GLUCOSE, FASTING 112 MG/DL (70-100); SODIUM LEVEL 143 MEQ/L (136-145)
[2021-06-01 02:59] VITALS: BP 122/75
== END 2021-06-01 03:13 | disposition home or self-care (01) ==
LOC: M ED 22:40
DX: U07.1 COVID-19 (principal); Z88.6 Allergy status to analgesic agent
CPT/HCPCS: 71046; 71275; 80048; 85025; 87631; 93005; 99284; Q9967

== ENCOUNTER → 2022-09-19 | Outpatient (CLI) | payer BC, OTHER ==
[~2022-09-19] MED LIST changes: +IBUP200T46 PO
[2022-09-19 18:06] LABS: HEMOGLOBIN 14.6 g/dl (12.0-15.5); MEAN CORPUSCULAR HEMOGLOBIN 29.9 pg (27.0-33.0); MEAN CORPUSCULAR HGB CONC 33.2 g/dl (32.0-36.5); PLATELET COUNT, AUTOMATED 370 10^3/uL (150-450); RED BLOOD COUNT 4.89 10^6/uL (4.00-5.40); WHITE BLOOD COUNT 14.3 10^3/uL (4.0-10.0)
[2022-09-19 19:01] LABS: HIV 1&2 SCREEN CENTAUR NEGATIVE (NEGATIVE)
[2022-09-20 00:12] LABS: GC DNA AMPLIFICATION NEGATIVE (NEGATIVE)
== END ==
LOC: M PLALAB 15:03
PROVIDERS: ATTEND Advanced Practice Midwife
DX: Z34.81 Encounter for supervision of other normal pregnancy, first trimester (principal)

== ENCOUNTER 2022-10-13 12:51 | Emergency (ER) | payer BC, OTHER ==
[~2022-10-13] VITALS: Ht 172.7 cm; Wt 87.5 kg
[2022-10-13] MEDS ORDERED: ONDANSETRON 4MG 2ML VIAL IV ONE (13:40)
[2022-10-13] MEDS ORDERED: NS 1,000 ML IV ONE (13:40)
[2022-10-13 15:09] LABS: APPEARANCE, URINE CLOUDY (CLEAR); BACTERIA, URINE AUTO 3+ (NEGATIVE); BILIRUBIN, URINE AUTO NEGATIVE (NEGATIVE); BLOOD, URINE BLOOD 1+ (NEGATIVE); COLOR, URINE YELLOW (YELLOW); GLUCOSE, URINE (UA) AUTO NEGATIVE (NEGATIVE); KETONE, URINE AUTO TRACE mg/dL (NEGATIVE); LEUKOCYTE ESTERASE, URINE AUTO 3+ (NEGATIVE); MUCUS, URINE SMALL (NEGATIVE); NITRITE, URINE AUTO POSITIVE (NEGATIVE); PROTEIN, URINE AUTO NEGATIVE (NEGATIVE); RBC, URINE AUTO 14 /HPF (0-3); SPECIFIC GRAVITY URINE AUTO 1.024 (1.002-1.035); SQUAMOUS EPITHELIAL CELL UR AU 4 /HPF (0-6); URIC ACID CRYSTALS SMALL; UROBILINOGEN, URINE AUTO 0.2 mg/dL (0.0-2.0); WBC, URINE AUTO TNTC /HPF (0-3)
[2022-10-13 15:31] LABS: BASO % 0.3 % (0.0-1.0); EOS # 0.1 10^3/uL (0.0-0.5); EOS % 0.5 % (0.0-3.0); HEMATOCRIT 48.6 % (36.0-47.0); HEMOGLOBIN 16.5 g/dl (12.0-15.5); LYMPH # 2.5 10^3/uL (1.5-5.0); MEAN CORPUSCULAR HEMOGLOBIN 30.1 pg (27.0-33.0); MEAN CORPUSCULAR VOLUME 88.7 fl (80.0-96.0); MONO # 0.3 10^3/uL (0.0-0.8); MONO % 2.6 % (2.0-8.0); NEUTROPHILS # 9.1 10^3/uL (1.5-8.5); NEUTROPHILS % 75.3 % (36.0-66.0); PLATELET COUNT, AUTOMATED 304 10^3/uL (150-450); RED BLOOD COUNT 5.48 10^6/uL (4.00-5.40)
[2022-10-13 16:02] LABS: ALBUMIN 4.1 G/DL (3.2-5.2); ALKALINE PHOSPHATASE 79 U/L (46-116); ALT/SGPT 22 U/L (7.0-40); AST/SGOT 23 U/L (<34); BILIRUBIN,DIRECT < 0.1 MG/DL (<0.4); BILIRUBIN,TOTAL 0.3 MG/DL (0.3-1.2); BLOOD UREA NITROGEN 7 MG/DL (9-23); CALCIUM LEVEL 9.2 MG/DL (8.5-10.1); CARBON DIOXIDE LEVEL 19 MMOL/L (20-31); CHLORIDE LEVEL 106 MMOL/L (98-107); GLOMERULAR FILTRATION RATE > 60.0 (>60); GLUCOSE, FASTING 69 MG/DL (60-100); POTASSIUM SERUM 4.2 MMOL/L (3.5-5.1); SODIUM LEVEL 138 MMOL/L (136-145); TOTAL PROTEIN 7.8 G/DL (5.7-8.2)
[2022-10-13 21:49] VITALS: BP 124/86
[2022-10-13] MEDS ORDERED: CEPHALEXIN 500 MG CAP PO ONE (21:50)
== END 2022-10-13 22:02 | disposition home or self-care (01) ==
LOC: M ED 12:51
DX: O23.31 Infections of other parts of urinary tract in pregnancy, first trimester (principal); N39.0 Urinary tract infection, site not specified; Z3A.12 12 weeks gestation of pregnancy; O30.091 Twin pregnancy, unable to determine number of placenta and number of amniotic sacs, first trimester; Z88.6 Allergy status to analgesic agent
CPT/HCPCS: 76775; 80048; 80076; 81001; 83605; 85025; 87088; 87186; 96374; 99284; J2405

== ENCOUNTER → 2022-10-19 | Outpatient (CLI) | payer BC, OTHER | LOC: M WHC 13:35 | PROVIDERS: ATTEND Advanced Practice Midwife | DX: O30.001 Twin pregnancy, unspecified number of placenta and unspecified number of amniotic sacs, first trimester (principal); Z3A.13 13 weeks gestation of pregnancy ==

== ENCOUNTER → 2022-11-29 | Outpatient (CLI) | payer BC, OTHER | LOC: M WHC 13:54 | PROVIDERS: ATTEND Obstetrics & Gynecology | DX: O30.001 Twin pregnancy, unspecified number of placenta and unspecified number of amniotic sacs, first trimester (principal) ==

== ENCOUNTER 2022-12-13 13:29 | Outpatient (CLI) | payer BC, OTHER ==
[~2022-12-13] VITALS: Ht 172.7 cm; Wt 89.2 kg
[2022-12-13 13:54] VITALS: BP 130/85
[2022-12-13] MEDS ORDERED: ASPI81CH33 PO (14:08)
[2022-12-13] MEDS ORDERED: HOME MED LIST COMPLETE! XX SCH (14:10)
[2022-12-13 15:03] LABS: HEMATOCRIT 36.9 % (36.0-47.0); HEMOGLOBIN 12.6 g/dl (12.0-15.5); MEAN CORPUSCULAR HEMOGLOBIN 31.3 pg (27.0-33.0); MEAN CORPUSCULAR HGB CONC 34.1 g/dl (32.0-36.5); MEAN CORPUSCULAR VOLUME 91.8 fl (80.0-96.0); PLATELET COUNT, AUTOMATED 254 10^3/uL (150-450); RED BLOOD COUNT 4.02 10^6/uL (4.00-5.40); WHITE BLOOD COUNT 8.5 10^3/uL (4.0-10.0)
[2022-12-13 15:28] LABS: ALKALINE PHOSPHATASE 75 U/L (46-116); ALT/SGPT 10 U/L (7.0-40); AST/SGOT < 8 U/L (<34); BILIRUBIN,TOTAL 0.4 MG/DL (0.3-1.2); BLOOD UREA NITROGEN 7 MG/DL (9-23); CALCIUM LEVEL 9.3 MG/DL (8.5-10.1); CARBON DIOXIDE LEVEL 24 MMOL/L (20-31); CHLORIDE LEVEL 107 MMOL/L (98-107); CREATININE FOR GFR 0.43 MG/DL (0.55-1.30); GLOMERULAR FILTRATION RATE > 60.0 (>60); GLUCOSE, FASTING 63 MG/DL (60-100); SODIUM LEVEL 140 MMOL/L (136-145)
== END 2022-12-13 15:50 | disposition home or self-care (01) ==
LOC: M LDO 13:29
PROVIDERS: ATTEND Specialist
DX: O26.892 Other specified pregnancy related conditions, second trimester (principal); R42 Dizziness and giddiness; O30.032 Twin pregnancy, monochorionic/diamniotic, second trimester; O34.219 Maternal care for unspecified type scar from previous cesarean delivery; Z3A.21 21 weeks gestation of pregnancy
CPT/HCPCS: 36415; 59025; 76815; 80053; 84443; 85027; 87086; G0463

== ENCOUNTER 2023-01-15 17:18 | Outpatient (CLI) | payer BC, OTHER ==
[~2023-01-15 17:18] MED LIST changes: +ASPI81CH33 PO
[2023-01-15 17:54] VITALS: BP 110/59
== END 2023-01-15 19:58 | disposition home or self-care (01) ==
LOC: M LDO 17:18
PROVIDERS: ATTEND Specialist
DX: O26.892 Other specified pregnancy related conditions, second trimester (principal); N89.8 Other specified noninflammatory disorders of vagina; R10.30 Lower abdominal pain, unspecified; O34.219 Maternal care for unspecified type scar from previous cesarean delivery; O30.032 Twin pregnancy, monochorionic/diamniotic, second trimester; Z3A.25 25 weeks gestation of pregnancy
CPT/HCPCS: 59025; 76815; 81001; 87088; 87186; G0463

== ENCOUNTER 2023-01-20 12:46 | Outpatient (CLI) | payer BC, OTHER ==
[~2023-01-20] VITALS: Ht 172.7 cm; Wt 89.5 kg
[2023-01-20 13:13] VITALS: BP 104/72
== END 2023-01-20 16:15 | disposition home or self-care (01) ==
LOC: M LDO 12:46
PROVIDERS: ATTEND Obstetrics & Gynecology
DX: O47.02 False labor before 37 completed weeks of gestation, second trimester (principal); O30.032 Twin pregnancy, monochorionic/diamniotic, second trimester; Z3A.26 26 weeks gestation of pregnancy
CPT/HCPCS: 59025; 76815; 76819; G0463

== ENCOUNTER → 2023-01-24 | Outpatient (CLI) | payer BC, OTHER | LOC: M RAD 13:40 | PROVIDERS: ATTEND Obstetrics & Gynecology | DX: O30.032 Twin pregnancy, monochorionic/diamniotic, second trimester (principal); Z3A.27 27 weeks gestation of pregnancy ==

== ENCOUNTER → 2023-02-07 | Outpatient (CLI) | payer BC, OTHER | LOC: M PLALAB 15:37 | PROVIDERS: ATTEND Obstetrics & Gynecology | DX: Z36.9 Encounter for antenatal screening, unspecified (principal) ==

== ENCOUNTER 2023-02-17 06:43 | Outpatient (CLI) | payer BC, OTHER ==
[~2023-02-17] VITALS: Ht 172.7 cm; Wt 91.2 kg
[2023-02-17 07:20] VITALS: BP 120/81
== END 2023-02-17 09:50 | disposition home or self-care (01) ==
LOC: M LDO 06:43
PROVIDERS: ATTEND Obstetrics & Gynecology
DX: O26.893 Other specified pregnancy related conditions, third trimester (principal); M54.50 Low back pain, unspecified; R10.30 Lower abdominal pain, unspecified; O30.033 Twin pregnancy, monochorionic/diamniotic, third trimester; Z3A.30 30 weeks gestation of pregnancy
CPT/HCPCS: 59025; 81001; G0463

== ENCOUNTER → 2023-02-21 | Outpatient (CLI) | payer BC, OTHER ==
[2023-02-21 15:07] LABS: HEMATOCRIT 34.7 % (36.0-47.0); HEMOGLOBIN 11.5 g/dl (12.0-15.5); MEAN CORPUSCULAR HEMOGLOBIN 30.8 pg (27.0-33.0); MEAN CORPUSCULAR HGB CONC 33.1 g/dl (32.0-36.5); PLATELET COUNT, AUTOMATED 208 10^3/uL (150-450); RED BLOOD COUNT 3.73 10^6/uL (4.00-5.40); WHITE BLOOD COUNT 8.6 10^3/uL (4.0-10.0)
[2023-02-21 16:32] LABS: GC DNA AMPLIFICATION NEGATIVE (NEGATIVE)
== END ==
LOC: M PLALAB 10:33
PROVIDERS: ATTEND Obstetrics & Gynecology
DX: Z34.92 Encounter for supervision of normal pregnancy, unspecified, second trimester (principal)

== ENCOUNTER 2023-03-10 05:39 | Outpatient (CLI) | payer BC, OTHER ==
[~2023-03-10] VITALS: Ht 167.6 cm; Wt 94.7 kg
[2023-03-10 05:49] VITALS: BP 127/80
[2023-03-10 07:03] VITALS: BP 143/95
[2023-03-10 07:06] VITALS: BP 146/71
[2023-03-10 09:22] VITALS: BP 111/61
[2023-03-10 10:50] VITALS: BP 135/82
== END 2023-03-10 11:20 | disposition home or self-care (01) ==
LOC: M LDO 05:39
PROVIDERS: ATTEND Obstetrics & Gynecology
DX: O36.8130 Decreased fetal movements, third trimester, not applicable or unspecified (principal); O30.033 Twin pregnancy, monochorionic/diamniotic, third trimester; Z3A.33 33 weeks gestation of pregnancy
CPT/HCPCS: 59025; 76816; 76819; G0463

== ENCOUNTER 2023-03-21 14:39 | Outpatient (CLI) | payer OTHER, BC ==
[~2023-03-21] VITALS: Ht 172.7 cm; Wt 96.1 kg
[~2023-03-21 14:39] MED LIST changes: -TUMS500C PO; -[UNRECOGNIZED DRUG - OTHER]
[2023-03-21] MEDS ORDERED: BETAMETHASONE SOLUSPAN 6MG/ML 5ML VIAL IM ONE (14:55)
[2023-03-21 15:05] VITALS: BP 137/86
[2023-03-21 16:10] VITALS: BP 134/85
[2023-03-21 16:24] LABS: HEMATOCRIT 36.5 % (36.0-47.0); HEMOGLOBIN 12.3 g/dl (12.0-15.5); MEAN CORPUSCULAR HEMOGLOBIN 30.4 pg (27.0-33.0); MEAN CORPUSCULAR HGB CONC 33.7 g/dl (32.0-36.5); MEAN CORPUSCULAR VOLUME 90.1 fl (80.0-96.0); PLATELET COUNT, AUTOMATED 217 10^3/uL (150-450); RED BLOOD COUNT 4.05 10^6/uL (4.00-5.40); WHITE BLOOD COUNT 8.4 10^3/uL (4.0-10.0)
[2023-03-21 16:39] LABS: LDH LACTATE DEHYDROGENASE 211 U/L (120-246)
[2023-03-21 16:40] LABS: ALBUMIN 2.7 G/DL (3.2-5.2); ALKALINE PHOSPHATASE 164 U/L (46-116); ALT/SGPT 11 U/L (7.0-40); AST/SGOT 12 U/L (<34); BILIRUBIN,TOTAL 0.3 MG/DL (0.3-1.2); BLOOD UREA NITROGEN 9 MG/DL (9-23); CALCIUM LEVEL 9.1 MG/DL (8.5-10.1); CARBON DIOXIDE LEVEL 20 MMOL/L (20-31); CHLORIDE LEVEL 109 MMOL/L (98-107); GLOMERULAR FILTRATION RATE > 60.0 (>60); GLUCOSE, FASTING 60 MG/DL (60-100); POTASSIUM SERUM 4.1 MMOL/L (3.5-5.1); SODIUM LEVEL 140 MMOL/L (136-145); TOTAL PROTEIN 5.8 G/DL (5.7-8.2)
[2023-03-21 16:43] LABS: URIC ACID 5.1 MG/DL (3.1-7.8)
[2023-03-21 16:45] LABS: TOTAL PROTEIN,RANDOM URINE 73.3 MG/DL (0.0-14.0)
[2023-03-21 16:50] LABS: CREATININE,RANDOM URINE 131.8 MG/DL
[2023-03-22] MEDS ORDERED: [UNRECOGNIZED DRUG - OTHER] (18:26)
== END 2023-03-21 19:15 | disposition home or self-care (01) ==
LOC: M LDO 14:39
PROVIDERS: ATTEND Obstetrics & Gynecology
DX: O13.3 Gestational [pregnancy-induced] hypertension without significant proteinuria, third trimester (principal); O14.03 Mild to moderate pre-eclampsia, third trimester; O30.033 Twin pregnancy, monochorionic/diamniotic, third trimester; O34.211 Maternal care for low transverse scar from previous cesarean delivery; D68.51 Activated protein C resistance; O36.0130 Maternal care for anti-D [Rh] antibodies, third trimester, not applicable or unspecified; O99.113 Other diseases of the blood and blood-forming organs and certain disorders involving the immune mechanism complicating pregnancy, third trimester; Z3A.35 35 weeks gestation of pregnancy
CPT/HCPCS: 36415; 59025; 76816; 76819; 76820; 80053; 82570; 83615; 84156; 84550; 85027; 96372; G0463; J0702

== ENCOUNTER → 2023-03-21 | Outpatient (REF) | payer OTHER, BC ==
[~2023-03-21] MED LIST changes: +TUMS500C PO; +[UNRECOGNIZED DRUG - OTHER]
== END ==
LOC: M PLALAB 13:40
PROVIDERS: ATTEND Advanced Practice Midwife
DX: Z34.80 Encounter for supervision of other normal pregnancy, unspecified trimester (principal)

== ENCOUNTER 2023-03-22 17:18 | Outpatient (CLI) | payer OTHER, BC ==
[~2023-03-22] VITALS: Ht 172.7 cm; Wt 96.0 kg
[2023-03-22] MEDS ORDERED: BETAMETHASONE SOLUSPAN 6MG/ML 5ML VIAL IM ONE (17:40)
[2023-03-22 18:00] VITALS: BP 135/78
[2023-03-22] MEDS ORDERED: [UNRECOGNIZED DRUG - OTHER] (18:26)
== END 2023-03-22 17:56 | disposition home or self-care (01) ==
LOC: M LDO 17:18
PROVIDERS: ATTEND Advanced Practice Midwife
DX: O14.03 Mild to moderate pre-eclampsia, third trimester (principal); O30.033 Twin pregnancy, monochorionic/diamniotic, third trimester; O13.3 Gestational [pregnancy-induced] hypertension without significant proteinuria, third trimester; Z3A.35 35 weeks gestation of pregnancy
CPT/HCPCS: 96372; J0702

== ENCOUNTER 2023-03-26 20:18 | Outpatient (CLI) | payer OTHER, BC ==
[~2023-03-26] VITALS: Ht 172.7 cm; Wt 95.4 kg
[~2023-03-26 20:18] MED LIST changes: +[UNRECOGNIZED DRUG - OTHER]
[2023-03-26 20:44] VITALS: BP 141/83
[2023-03-26] MEDS ORDERED: TUMS500C PO (20:46)
[2023-03-26 21:24] LABS: HEMATOCRIT 32.9 % (36.0-47.0); HEMOGLOBIN 11.2 g/dl (12.0-15.5); MEAN CORPUSCULAR HEMOGLOBIN 30.3 pg (27.0-33.0); MEAN CORPUSCULAR VOLUME 88.9 fl (80.0-96.0); PLATELET COUNT, AUTOMATED 192 10^3/uL (150-450); WHITE BLOOD COUNT 10.2 10^3/uL (4.0-10.0)
[2023-03-26 21:47] LABS: LDH LACTATE DEHYDROGENASE 232 U/L (120-246)
[2023-03-26 21:48] LABS: ALT/SGPT 11 U/L (7.0-40); AST/SGOT 16 U/L (<34); BILIRUBIN,TOTAL 0.4 MG/DL (0.3-1.2); CREATININE FOR GFR 0.57 MG/DL (0.55-1.30); GLOMERULAR FILTRATION RATE > 60.0 (>60)
[2023-03-26 21:55] LABS: URIC ACID 5.5 MG/DL (3.1-7.8)
[2023-03-26 22:51] VITALS: BP 144/91
[2023-03-26 22:54] LABS: TOTAL PROTEIN,RANDOM URINE 44.4 MG/DL (0.0-14.0)
[2023-03-26 23:04] LABS: CREATININE,RANDOM URINE 79.2 MG/DL
[2023-03-30] MEDS ORDERED: COLA100C5 PO (10:34)
[2023-03-30] MEDS ORDERED: PERC5TAB12 PO (10:34)
[2023-03-30] MEDS ORDERED: IBUP80TA PO (10:34)
== END 2023-03-26 23:12 | disposition home or self-care (01) ==
LOC: M LDO 20:18
PROVIDERS: ATTEND Specialist
DX: O13.3 Gestational [pregnancy-induced] hypertension without significant proteinuria, third trimester (principal); O30.033 Twin pregnancy, monochorionic/diamniotic, third trimester; O34.211 Maternal care for low transverse scar from previous cesarean delivery; Z3A.35 35 weeks gestation of pregnancy
CPT/HCPCS: 36415; 59025; 82247; 82570; 83615; 84156; 84450; 84460; 84550; 85027; G0463

== ENCOUNTER → 2023-07-21 | Outpatient (REF) | payer BC, OTHER ==
[~2023-07-21] MED LIST changes: +COLA100C5 PO; +IBUP80TA PO; +PERC5TAB12 PO; +TUMS500C PO
[2023-07-21 19:14] LABS: APPEARANCE, URINE HAZY (CLEAR); BACTERIA, URINE AUTO NEGATIVE (NEGATIVE); BILIRUBIN, URINE AUTO NEGATIVE (NEGATIVE); BLOOD, URINE BLOOD 1+ (NEGATIVE); COLOR, URINE YELLOW (YELLOW); GLUCOSE, URINE (UA) AUTO NEGATIVE (NEGATIVE); KETONE, URINE AUTO NEGATIVE (NEGATIVE); LEUKOCYTE ESTERASE, URINE AUTO 1+ (NEGATIVE); NITRITE, URINE AUTO NEGATIVE (NEGATIVE); PROTEIN, URINE AUTO 1+ mg/dL (NEGATIVE); RBC, URINE AUTO 3 /HPF (0-3); SPECIFIC GRAVITY URINE AUTO 1.023 (1.002-1.035); SQUAMOUS EPITHELIAL CELL UR AU 2 /HPF (0-6); UROBILINOGEN, URINE AUTO 0.2 mg/dL (0.0-2.0); WBC, URINE AUTO 58 /HPF (0-3)
== END ==
LOC: M LAB REF 18:52
PROVIDERS: ATTEND Physician Assistant Medical
DX: N39.0 Urinary tract infection, site not specified (principal)

== ENCOUNTER → 2024-11-17 | Outpatient (REF) | payer BC, OTHER ==
[2024-11-17 18:13] LABS: AMORPHOUS SEDIMENT SMALL (NEGATIVE); APPEARANCE, URINE HAZY (CLEAR); BACTERIA, URINE AUTO 1+ (NEGATIVE); BILIRUBIN, URINE AUTO NEGATIVE (NEGATIVE); BLOOD, URINE BLOOD 2+ (NEGATIVE); GLUCOSE, URINE (UA) AUTO NEGATIVE (NEGATIVE); KETONE, URINE AUTO NEGATIVE (NEGATIVE); LEUKOCYTE ESTERASE, URINE AUTO 1+ (NEGATIVE); NITRITE, URINE AUTO POSITIVE (NEGATIVE); PROTEIN, URINE AUTO NEGATIVE (NEGATIVE); RBC, URINE AUTO 1 /HPF (0-3); SPECIFIC GRAVITY URINE AUTO 1.010 (1.002-1.035); SQUAMOUS EPITHELIAL CELL UR AU 2 /HPF (0-6); UROBILINOGEN, URINE AUTO 0.2 mg/dL (0.0-2.0); WBC, URINE AUTO 25 /HPF (0-3)
== END ==
LOC: M LAB REF 17:21
PROVIDERS: ATTEND Physician Assistant Medical
DX: N39.0 Urinary tract infection, site not specified (principal)

== ENCOUNTER → 2025-01-30 | Outpatient (REF) | payer BC, OTHER ==
[2025-01-30 18:37] LABS: APPEARANCE, URINE CLEAR (CLEAR); BACTERIA, URINE AUTO 1+ (NEGATIVE); BILIRUBIN, URINE AUTO NEGATIVE (NEGATIVE); BLOOD, URINE BLOOD 1+ (NEGATIVE); GLUCOSE, URINE (UA) AUTO NEGATIVE (NEGATIVE); KETONE, URINE AUTO NEGATIVE (NEGATIVE); LEUKOCYTE ESTERASE, URINE AUTO NEGATIVE (NEGATIVE); NITRITE, URINE AUTO NEGATIVE (NEGATIVE); PROTEIN, URINE AUTO NEGATIVE (NEGATIVE); RBC, URINE AUTO 0 /HPF (0-3); SPECIFIC GRAVITY URINE AUTO 1.009 (1.002-1.035); SQUAMOUS EPITHELIAL CELL UR AU 1 /HPF (0-6); UROBILINOGEN, URINE AUTO 0.2 mg/dL (0.0-2.0); WBC, URINE AUTO 0 /HPF (0-3)
== END ==
LOC: M LAB REF 17:30
DX: N39.0 Urinary tract infection, site not specified (principal)

== ENCOUNTER → 2025-02-11 | Outpatient (REF) | payer BC, OTHER ==
[2025-02-11 13:23] LABS: APPEARANCE, URINE CLOUDY (CLEAR); BACTERIA, URINE AUTO NEGATIVE (NEGATIVE); BILIRUBIN, URINE AUTO NEGATIVE (NEGATIVE); BLOOD, URINE BLOOD 2+ (NEGATIVE); GLUCOSE, URINE (UA) AUTO NEGATIVE (NEGATIVE); KETONE, URINE AUTO NEGATIVE (NEGATIVE); LEUKOCYTE ESTERASE, URINE AUTO 2+ (NEGATIVE); NITRITE, URINE AUTO NEGATIVE (NEGATIVE); PROTEIN, URINE AUTO 1+ mg/dL (NEGATIVE); RBC, URINE AUTO 31 /HPF (0-3); SPECIFIC GRAVITY URINE AUTO 1.027 (1.002-1.035); SQUAMOUS EPITHELIAL CELL UR AU 6 /HPF (0-6); UROBILINOGEN, URINE AUTO 0.2 mg/dL (0.0-2.0); WBC, URINE AUTO TNTC /HPF (0-3)
== END ==
LOC: M LAB REF 12:52
PROVIDERS: ATTEND Physician Assistant
DX: N39.0 Urinary tract infection, site not specified (principal)